=== PATIENT | female | born 1955 | race Caucasian/White ===

== ENCOUNTER 2018-07-22 17:32 | Inpatient (IN) ==
[2018-07-22 18:01] LABS: Basophils # 0.1 K/mm3 (0-0.2); Basophils % 0.2 % (0.1-2.0); Hematocrit 42.6 % (37.0-47.0); Hemoglobin 13.8 g/dL (12.2-16.2); Lymphocytes # 1.5 K/mm3 (0.7-4.5); Lymphocytes % 5.5 % (10-50); Mean Corpuscular HGB Conc 32.4 g/dL (31.8-35.4); Mean Corpuscular Hemoglobin 28.7 pg (27.0-31.2); Mean Corpuscular Volume 88.5 fl (81-99); Mean Platelet Volume 6.9 fl (7.4-10.4); Monocytes % 3.7 % (1.7-9.3); Neutrophils # 24.4 K/mm3 (1.8-7.8); Neutrophils % 90.6 % (37.0-80.0); Platelet Count 265 K/mm3 (142-424); Red Blood Count 4.82 M/mm3 (4.20-5.40); Red Cell Distribution Width 12.6 % (11.5-17.5); White Blood Count 26.9 K/mm3 (4.8-10.8)
[2018-07-22 18:13] LABS: Acetone, Serum (Rapid) None Detected (None Detect)
[2018-07-22 18:17] LABS: Lymphocytes % 2 % (10-50); Monocytes % 4 % (2-9); Neutrophils % 86 % (42-76); RBC Morphology Normal; Total Cells Counted 100
[2018-07-22 18:39] LABS: Alanine Aminotransferase 52 U/L (12-78); Albumin Level 2.7 gm/dL (3.4-5.0); Albumin/Globulin Ratio 0.6 (1.1-1.8); Alkaline Phosphatase 118 U/L (46-116); Amylase 16 U/L (25-115); Anion Gap 14.5 mEq/L (5-15); Aspartate Amino Transferase 41 U/L (15-37); Bilirubin,Total 0.5 mg/dL (0.2-1.0); Blood Urea Nitrogen 15 mg/dL (7-18); Calcium 8.4 mg/dL (8.5-10.1); Carbon Dioxide 25 mmol/L (21.0-32.0); Chloride 93 mmol/L (98-107); Globulin 4.8 gm/dl (1.3-3.2); Glucose,Random 499 mg/dL (70-110); Lipase 68 u/L (73-393); Potassium 3.5 mmoL/L (3.5-5.1); Sodium 129 mmol/L (136-145); Total Protein,Serum 7.5 gm/dL (6.4-8.2)
[2018-07-22 18:40] LABS: Glucose 499 mg/dL (74-106)
--- NOTE | 2018-07-22 18:53 | Emergency Department Note ---
ED Disposition Clinical Impression: Acute non-ST elevation myocardial infarction (NSTEMI), Left shift, Left lower lobe pulmonary infiltrate, Hyponatremia, Hypochloremia, Hyperglycemia, Hypocalcemia, Elevated alkaline phosphatase level, Dyspnea on exertion Leukocytosis Qualifiers: Leukocytosis type: unspecified Qualified Code(s): D72.829 - Elevated white blood cell count, unspecified Fatigue Qualifiers: Fatigue type: unspecified Qualified Code(s): R53.83 - Other fatigue Dyspnea Qualifiers: Dyspnea type: shortness of breath Qualified Code(s): R06.02 - Shortness of breath; R06.00 - Dyspnea, unspecified; R06.01 - Orthopnea Disposition: Admitted As Inpatient Condition on Discharge: Serious (Stable) Referrals: Carole Carlos APRN [Primary Care Provider] - Time of Disposition: 19:28 - Critical Care Critical Care Time: No Attestation: On 07/22/18, the high probability of a clinically significant, sudden or life threatening deterioration of the following system(s) required my full and direct attention, intervention and personal management. The time I documented below is in addition to time spent performing reported procedures but includes the following listed in this critical care notation. Medical Decision Making - Medical Records Medical records reviewed: Yes: I reviewed the patient's medical records. - Juaquin Inquiry Pt receiving controlled substance: No Juaquin was queried for this patient: No Vital Signs: 07/22/18 17:32 Temperature 98.3 F Temperature Source Oral Pulse Rate [Left Radial] 77 Respiratory Rate 20 Blood Pressure [Left Arm] 115/63 Blood Pressure Mean [Left Arm] 80 02 Sat by Pulse Oximetry 95 Oxygen Delivery Method Room Air - Lab Data Lab results reviewed: Yes: I reviewed the patient's lab results. Lab Results 07/22/18 17:45: WBC 26.9 H*, RBC 4.82, Hgb 13.8, Hct 42.6, MCV 88.5, MCH 28.7, MCHC 32.4, RDW 12.6, Plt Count 265, MPV 6.9 L, Neut % (Auto) 90.6 H, Lymph % (Auto) 5.5 L, Morgan % (Auto) 3.7, Eos % (Auto) 0.0 L, Baso % (Auto) 0.2, Neut # (Auto) 24.4 H, Lymph # (Auto) 1.5, Morgan # (Auto) 1.0, Eos # (Auto) 0.0, Baso # (Auto) 0.1, Total Counted 100, Neutrophils % (Manual) 86 H, Band Neutrophils % 4.0, Lymphocytes % (Manual) 2 L, Atypical Lymphs % 4.0, Monocytes % (Manual) 4, Platelet Estimate Normal, RBC Morphology Normal 07/22/18 17:45: Sodium 129 L, Potassium 3.5, Chloride 93 L, Carbon Dioxide 25, Anion Gap 14.5, BUN 15, Creatinine 0.88, Estimated Creat Clear 79, Estimated GFR 65, Est GFR ( Amer) 79, Glucose 499 H*, Random Glucose 499 H, Calcium 8.4 L, Total Bilirubin 0.5, AST 41 H, ALT 52, Alkaline Phosphatase 118 H, Troponin I 2.78 H, Total Protein 7.5, Albumin 2.7 L, Globulin 4.8 H, Albumin/Globulin Ratio 0.6 L, Amylase 16 L, Lipase 68 L, Acetone Level None detected Result diagrams: 07/22/18 17:45 07/22/18 17:45 Orders (Tests/Meds): ED MEDICATIONS Generic Name Dose Route Start Last Admin Trade Name Freq PRN Reason Stop Dose Admin Sodium Chloride 1,000 mls @ 999 mls/hr 07/22/18 18:00 07/22/18 17:48 Sod Chlor 0.9% 1000ml Bag IV 07/22/18 19:00 999 mls/hr .Q1H1M VLAD Administration Discontinued Medications Generic Name Dose Route Start Last Admin Trade Name Freq PRN Reason Stop Dose Admin Aspirin 324 mg 07/22/18 18:49 07/22/18 19:09 Aspirin 81mg Chewable Tablet PO 07/22/18 18:50 324 mg ONCE ONE Administration Insulin Human Regular 12 unit 07/22/18 19:07 07/22/18 19:09 Humulin R Insulin 100 Units/Ml 10ml Vial SQ 07/22/18 19:08 12 unit ONCE ONE Administration Metoprolol Tartrate 5 mg 07/22/18 18:50 Metoprolol Tartrate 5mg/5ml Vial IV 07/22/18 18:51 ONCE ONE Ondansetron HCl 4 mg 07/22/18 18:51 07/22/18 19:09 Zofran 4mg/2ml Vial IV 07/22/18 18:52 4 mg ONCE ONE Administration ORDERS Category Date Time Status XR chest portable Stat Exams 07/22/18 17:42 Taken Activated Partial Thrombo Time Stat Lab 07/22/18 18:51 Ordered B-Type Natriuretic Peptide Stat Lab 07/22/18 18:51 Ordered Prothrombin Time INR Stat Lab 07/22/18 18:51 Ordered Troponin I Q3H Lab 07/22/18 19:00 Ordered Troponin I Q3H Lab 07/22/18 22:00 Ordered Troponin I Q3H Lab 07/23/18 01:00 Ordered Urinalysis and Microscopic Stat Lab 07/22/18 17:42 Ordered Venous Blood Gas Stat RT 07/22/18 17:42 Ordered ECG Request by /Nse Stat Y 07/22/18 18:51 Ordered - Radiology Data #1 Image(s): Chest Image Reviewed: Yes I reviewed the patient's radiology image Preliminary PCXR reading by myself shows blunting of left costophrenic angle - suspect infiltrate. Medical Decision Narrative: 19:21 Pt evaluated. EKG, PCXR and lab results reviewed. Elevated troponin noted. Repeat EKG ordered and is essentially the same as the initial EKG. Regular insulin 12 units IVP ordered for hyperglycemia. 4 ASA 81 mg PO ordered. I subsequently discussed case with collection coordinator Dr. Rangel at ~19:10 and he recommended Plavix 300 mg PO, Lipitor 40 mg PO, Lovenox 1 mg/kg SC BID, and Metoprolol 25 mg PO BID. I have ordered these medicines. Case also discussed with Carole Carlos NP who has agreed to accept care and admission of this pt. Dr. Rangel will consult and participate. He intends to cath pt in the morning. I have discussed the results of work up, diagnosis and care plan with pt and . They understand and all questions answered. General Adult HPI - General Chief complaint: Hyper/Hypoglycemia Stated complaint: Hyperglycemia Time Seen by Provider: 07/22/18 18:30 Mode of Arrival: Ambulatory Source of Information: Patient, Spouse Limitations: No Limitations Description of Symptoms (Recalled from ER Triage Doc. by RN): Pt was having some weakness and her sugar at home was 500 - History of Present Illness HPI narrative: Pt is here in the ER from home with for evaluation c/o elevated glucose over 500 mg/dl at home [employer] [employer] in ER. Pt states that she has not felt well for 2 days. Pt has been fatigued since waking yesterday morning. She states that she has felt more fatigue and malaise today. She became nauseated and vomited once after breakfast this morning. She states she has felt SOB and has had DEJESUS today. She denies having chest pain. Pt has known diabetes mellitus but has only been using herbal treatments. She is not taking any routine medicines. Pt seen by Carole Carlos NP at home and instructed to come into the ER for evaluation. - Related Data Home Medications Medication Instructions Recorded Confirmed No Known Home Medications 07/22/18 07/22/18 Allergies Allergy/AdvReac Type Severity Reaction Status Date / Time No Known Allergies Allergy Verified 07/22/18 17:40 [facility] History - Hepatitis A Screen Drug use history?: No High risk sexual behaviors?: No History of sexually transmitted infection?: No Currently employed?: No Childcare worker?: No Do you have indoor plumbing?: Yes Do you have electricity?: Yes Attestation statement:: This patient participated in a screening for the Hepatitis A vaccine and was determined to be high risk for deangelo Hepatitis A. I agree with the recommendation that the patient receive the Hepatitis A vaccination unless otherwise refused. I have reviewed the patient's past medical history: Yes Medical History: Reports:: Diabetes Mellitus Type 2 Denies:: Diabetes Mellitus Type 1 - Social History Smoking Status: Unknown if ever smoked Alcohol Intake: never Housing: house Household Members: spouse - Psychiatric History Expresses thoughts of harming self/others: None Suicide Plan Description: No Plan ROS Obtained: Yes All systems reviewed & no additional complaints - Constitutional Constitutional: Reports system reviewed and no additional complaints, except as docu, Reports fatigue, Reports malaise - Eyes Eyes: Reports system reviewed and no additional complaints, except as docu - ENT Ears, Nose, Mouth, and Throat: Reports system reviewed and no additional complaints, except as docu - Cardiovascular Cardiovascular: Reports system reviewed and no additional complaints, except as docu - Respiratory Respiratory: Yes system reviewed and no additional complaints, except as docu, Yes dyspnea, Yes dyspnea on exertion - Gastrointestinal Gastrointestingal: Reports: system reviewed and no additional complaints, except as docu, nausea, vomiting - Genitourinary Female Genitourinary: Reports system reviewed and no additional complaints, except as docu - Musculoskeletal Musculoskeletal: Reports system reviewed and no additional complaints, except as docu - Integumentary/Breasts Skin/Breast: Reports system reviewed and no additional complaints, except as docu - Neurologic Neurologic: Reports system reviewed and no additional complaints, except as docu - Endocrine Endocrine: Reports system reviewed and no additional complaints, except as docu, Reports other (elevated glucose to 500 at home) - Hematologic/Lymphatic Henatologic/Lymphatic: Reports system reviewed and no additional complaints, except as docu - Allergic/Immunologic Allergic/Immunologic: Reports system reviewed and no additional complaints, except as docu Physical Exam - General General appearance: alert, in no apparent distress - Head Head exam: atraumatic, normocephalic, normal inspection - Eye Eye exam: Present: normal appearance, PERRL, EOMI - ENT ENT exam: Present: mucous membranes moist - Neck Neck exam: Present: trachea midline - Chest Chest inspection: Present: normal inspection, symmetric chest wall rise - Respiratory Respiratory exam: Absent: respiratory distress (Equally diminished BS bilaterally.), wheezes, stridor - Cardiovascular Cardiovascular exam: Present: regular rate - Abdominal Exam Abdominal exam: Present: soft, normal bowel sounds. Absent: distention, tenderness, guarding, rebound, rigidity, Pedersen's sign, tenderness at McBurney's Point - Extremities Exam Extremities exam: Present: normal inspection, normal capillary refill. Absent: pedal edema - Neurological Exam Neurological exam: Present: alert, oriented X3, CN II-XII intact - Psychiatric Psychiatric exam: Present: normal affect, normal mood - Skin Skin exam: Present: warm, dry, intact, normal color. Absent: rash
[2018-07-22 20:06] LABS: Prothrombin Time 10.3 seconds (9.4-11.8)
[2018-07-23 07:20] LABS: Basophils # 0.1 K/mm3 (0-0.2); Basophils % 0.3 % (0.1-2.0); Eosinophils # 0.2 K/mm3 (0.0-0.4); Eosinophils % 1.3 % (0.1-12.0); Hemoglobin 12.9 g/dL (12.2-16.2); Lymphocytes # 2.8 K/mm3 (0.7-4.5); Lymphocytes % 18.2 % (10-50); Mean Corpuscular HGB Conc 33.1 g/dL (31.8-35.4); Mean Corpuscular Hemoglobin 28.7 pg (27.0-31.2); Mean Corpuscular Volume 86.7 fl (81-99); Mean Platelet Volume 6.9 fl (7.4-10.4); Monocytes # 0.7 K/mm3 (0.1-1.0); Monocytes % 4.4 % (1.7-9.3); Neutrophils # 11.7 K/mm3 (1.8-7.8); Neutrophils % 75.9 % (37.0-80.0); Platelet Count 261 K/mm3 (142-424); Red Cell Distribution Width 12.6 % (11.5-17.5); White Blood Count 15.5 K/mm3 (4.8-10.8)
[2018-07-23 07:26] LABS: Anion Gap 11.2 mEq/L (5-15); Calcium 8.3 mg/dL (8.5-10.1); Potassium 3.2 mmoL/L (3.5-5.1)
--- NOTE | 2018-07-23 07:45 | Pharmacy Consult Notes ---
[facility] Pharmacy VTE Monitoring - Patient Demographics Admission date: 07/22/18 Report Date: 07/23/18 Time: 07:45 Allergies/Adverse Reactions: Patient Allergies No Known Allergies Allergy (Verified 07/22/18 17:40) Height: 1.55 m Weight: 88.11 kg Patient Problems: Current Active Problems Acute non-ST elevation myocardial infarction (NSTEMI) (Acute) Leukocytosis (Acute) Left shift (Acute) Left lower lobe pulmonary infiltrate (Acute) Hyponatremia (Acute) Hypochloremia (Acute) Hyperglycemia (Acute) Hypocalcemia (Acute) Elevated alkaline phosphatase level (Acute) Fatigue (Acute) Dyspnea (Acute) Dyspnea on exertion (Acute) - VTE Risk Labs: VTE Related Lab Results Hgb 12.9 g/dL (12.2-16.2) 07/23/18 07:00 Hct 39.0 % (37.0-47.0) 07/23/18 07:00 Plt Count 261 K/mm3 (142-424) 07/23/18 07:00 PT 10.3 seconds (9.4-11.8) 07/22/18 17:45 INR 1.00 (0.9-1.1) 07/22/18 17:45 APTT 28.0 seconds (23.6-34.0) 07/22/18 17:45 BUN 12 mg/dL (7-18) 07/23/18 07:00 Creatinine 0.53 mg/dL (0.55-1.02) L D 07/23/18 07:00 Estimated Creat Clear 81 mL/min (50-200) 07/23/18 07:00 Was VTE Risk Assessment Performed: Yes VTE Score: 3 VTE Risk Level: Low Risk - Prophylaxis VTE Prophylaxis Ordered?: Yes Types of VTE Prophylaxis: Pharmacological Pharmacologic Type: Enoxaparin - VTE Diagnosis Confirmed Treatment or plan recommended: Continue Current Treatment
--- NOTE | 2018-07-23 07:49 | Consult Report ---
History of Present Illness Consult date: 07/23/18 Requesting physician: Bob Self Consult reason: chest pain Chief complaint: chest pain Additional Medical History:: 1. Diabetes mellitus, treated with herbal therapy for greater than 2 years 2. History of hypertension, untreated History of present illness: 62-year-old [facility] white female with history of hypertension and diabetes, treated with organic, herbal therapy, was admitted through the ER for non-ST elevation SC. Patient relates 1-2-day history of increasing fatigue and unsteadiness. She denies significant chest pain. She has had a slight cough that is not particularly productive. ER workup revealed elevated white count along with elevated troponins and an abnormal chest x-ray with suggestion of left side infiltrate. EKG shows sinus rhythm, incomplete right bundle branch block and inferior/lateral T wave abnormalities suggestive of ischemia. Patient was started on anticoagulation therapy with Lovenox, antiplatelet therapy with Plavix as well as aspirin and started on metoprolol. This a.m. she states she feels much better. Cardiology consulted for evaluation and treatment. [facility] History Medical History: Reports:: Diabetes Mellitus Type 2 Denies:: Diabetes Mellitus Type 1 - *Social History Smoking Status: Unknown if ever smoked Alcohol Intake: never Occupational Status: other Housing: house Household Members: spouse, family - Psychiatric History Expresses thoughts of harming self/others: None Suicide Plan Description: No Plan *Family Hx:: No significant family history Meds Home Medications Medication Instructions Recorded Confirmed Type No Known Home Medications 07/22/18 07/22/18 History Allergies Allergy/AdvReac Type Severity Reaction Status Date / Time No Known Allergies Allergy Verified 07/22/18 17:40 Review of Systems - *Cardiovascular Reports shortness of breath with activity, Denies chest pain - *Respiratory Reports cough, Reports shortness of breath with activity - *Gastrointestinal Denies abdominal pain - *Genitourinary Denies blood in urine - *Musculoskeletal Reports back pain - *Neurologic Reports unsteadiness Exam Vital signs and Labs for Last 24 Hours: Temp Pulse Resp BP Pulse Ox 97.6 F 60 18 115/51 L 97 07/23/18 03:49 07/23/18 04:00 07/23/18 03:49 07/23/18 03:49 07/23/18 03:49 Laboratory Results - last 24 hr 07/22/18 17:45: WBC 26.9 H*, RBC 4.82, Hgb 13.8, Hct 42.6, MCV 88.5, MCH 28.7, MCHC 32.4, RDW 12.6, Plt Count 265, MPV 6.9 L, Neut % (Auto) 90.6 H, Lymph % (Auto) 5.5 L, Liberty % (Auto) 3.7, Eos % (Auto) 0.0 L, Baso % (Auto) 0.2, Neut # (Auto) 24.4 H, Lymph # (Auto) 1.5, Liberty # (Auto) 1.0, Eos # (Auto) 0.0, Baso # (Auto) 0.1, Total Counted 100, Neutrophils % (Manual) 86 H, Band Neutrophils % 4.0, Lymphocytes % (Manual) 2 L, Atypical Lymphs % 4.0, Monocytes % (Manual) 4, Platelet Estimate Normal, RBC Morphology Normal 07/22/18 17:45: Sodium 129 L, Potassium 3.5, Chloride 93 L, Carbon Dioxide 25, Anion Gap 14.5, BUN 15, Creatinine 0.88, Estimated Creat Clear 79, Estimated GFR 65, Est GFR ( Amer) 79, Glucose 499 H*, Random Glucose 499 H, Calcium 8.4 L, Total Bilirubin 0.5, AST 41 H, ALT 52, Alkaline Phosphatase 118 H, Troponin I 2.78 H, Total Protein 7.5, Albumin 2.7 L, Globulin 4.8 H, Albumin/Globulin Ratio 0.6 L, Amylase 16 L, Lipase 68 L, Acetone Level None detected 07/22/18 17:45: PT 10.3, INR 1.00, APTT 28.0 07/22/18 17:45: B-Natriuretic Peptide 196 H 07/22/18 19:30: Troponin I 2.12 H 07/22/18 19:35: Influenza Type A Ag Negative, Influenza Type B Ag Negative 07/22/18 22:08: Troponin I 2.78 H 07/22/18 23:08: POC Glucose 391 H* 07/23/18 07:00: WBC 15.5 H D, RBC 4.50, Hgb 12.9, Hct 39.0, MCV 86.7, MCH 28.7, MCHC 33.1, RDW 12.6, Plt Count 261, MPV 6.9 L, Neut % (Auto) 75.9, Lymph % (Auto) 18.2, Liberty % (Auto) 4.4, Eos % (Auto) 1.3, Baso % (Auto) 0.3, Neut # (Auto) 11.7 H, Lymph # (Auto) 2.8, Liberty # (Auto) 0.7, Eos # (Auto) 0.2, Baso # (Auto) 0.1 07/23/18 07:00: Sodium 137, Potassium 3.2 L, Chloride 102, Carbon Dioxide 27, Anion Gap 11.2, BUN 12, Creatinine 0.53 L D, Estimated Creat Clear 81, Estimated GFR 117, Est GFR ( Amer) 141 D, Glucose 205 H D, Calcium 8.3 L I & O for Last 24 hours: Intake & Output 07/20/18 07/21/18 07/22/18 07/23/18 11:59 11:59 11:59 11:59 Intake Total 1516 / 1516 Balance 1516 / 1516 Weight 194 lb 4 oz - *Routine Neck Exam Present: supple. Absent: JVD, carotid bruit - *Routine Respiratory Exam Present: decreased breath sounds. Absent: accessory muscle use, rales, rhonchi, wheezes Comments: Diminished air movement in left base. - *Routine Cardiovascular Exam Present: RRR. Absent: murmur, gallop, rubs - *Routine Abdominal Exam Present: soft. Absent: tenderness, distended, guarding - *Routine Extremities Exam Absent: edema, calf tenderness - *Routine Neurological Exam Present: alert, oriented X3, moving all extremities Assessment and Plan (1) Acute non-ST elevation myocardial infarction (NSTEMI) Current visit: Yes Status: Acute Category: Medical Code(s): I21.4 - Non-ST elevation (NSTEMI) myocardial infarction (2) Diabetes mellitus type 2 in obese Current visit: Yes Status: Acute Category: Medical Code(s): E11.69 - Type 2 diabetes mellitus with other specified complication; E66.9 - Obesity, unspecified (3) Dyspnea on exertion Current visit: Yes Status: Acute Category: Medical Code(s): R06.09 - Other forms of dyspnea (4) Fatigue Current visit: Yes Status: Acute Qualifiers: Fatigue type: unspecified Qualified Code(s): R53.83 - Other fatigue Category: Medical Code(s): R53.83 - Other fatigue (5) Left lower lobe pulmonary infiltrate Current visit: Yes Status: Acute Category: Medical Code(s): R91.8 - Other nonspecific abnormal finding of lung field (6) Leukocytosis Current visit: Yes Status: Acute Qualifiers: Leukocytosis type: unspecified Qualified Code(s): D72.829 - Elevated white blood cell count, unspecified Category: Medical Code(s): D72.829 - Elevated white blood cell count, unspecified - Assessment and plan all Dx Assessment and Plan for all problems:: 1. Discussed risks, benefits and procedure of left heart catheterization with the patient and her . They both agree to proceed with the procedure this a.m. Discussion regarding long-term use of aspirin and antiplatelet therapy along with possible other medications undertaken and they agreed to take medications if needed. 2. We will obtain an echocardiogram to evaluate left ventricular size and function as well as valve status. 3. Further recommendations to follow pending above
--- NOTE | 2018-07-23 09:27 | History & Physical Report ---
*Admission Date: 07/22/18 *Chief complaint: soa *History of present illness: 62-year-old [facility] white female with history of hypertension and diabetes, treated with organic, herbal therapy, was admitted through the ER for non-ST elevation RI. Patient relates 1-2-day history of increasing fatigue and unsteadiness. She denies significant chest pain. She has had a slight cough that is not particularly productive. ER workup revealed elevated white count along with elevated troponins and an abnormal chest x-ray with suggestion of left side infiltrate. EKG shows sinus rhythm, incomplete right bundle branch block and inferior/lateral T wave abnormalities suggestive of ischemia. Patient was started on anticoagulation therapy with Lovenox, antiplatelet therapy with Plavix as well as aspirin and started on metoprolol. This a.m. she states she feels much better. Cardiology consulted for evaluation and treatment. [facility] History I have reviewed the patient's past medical history: Yes Medical History: Reports:: Diabetes Mellitus Type 2 Denies:: Diabetes Mellitus Type 1 - *Social History Smoking Status: Unknown if ever smoked Alcohol Intake: never Occupational Status: other Housing: house Household Members: spouse, family - Psychiatric History Expresses thoughts of harming self/others: None Suicide Plan Description: No Plan *Family Hx:: No significant family history Review of Systems - Review of Systems Review of systems:: pertinent systems reviewed and negative unless documented below - Constitutional Reports weakness - Eyes Denies change in vision - ENT Denies change in voice - *Cardiovascular Reports shortness of breath, Reports shortness of breath with activity - *Respiratory Reports cough, Reports shortness of breath, Reports shortness of breath with activity - *Gastrointestinal Reports nausea, Reports vomiting - *Genitourinary Denies abnormal periods - *Musculoskeletal Reports abnormal walking, Reports muscle weakness - Integumentary/Breasts Denies rash - *Neurologic Reports unsteadiness, Reports tremor(s) - Psychiatric Denies lack of enjoyment - Endocrine Denies flushing - Hematologic/Lymphatic Denies enlarged lymph nodes - Allergic/Immunologic Denies lip swelling Meds Home Medications Medication Instructions Recorded Confirmed Type No Known Home Medications 07/22/18 07/22/18 History Allergies Allergy/AdvReac Type Severity Reaction Status Date / Time No Known Allergies Allergy Verified 07/22/18 17:40 Exam Vital signs and Labs for Last 24 Hours: Temp Pulse Resp BP Pulse Ox 97.9 F 81 18 104/50 L 95 07/23/18 08:00 07/23/18 08:00 07/23/18 08:00 07/23/18 08:00 07/23/18 08:00 Laboratory Results - last 24 hr 07/22/18 17:45: WBC 26.9 H*, RBC 4.82, Hgb 13.8, Hct 42.6, MCV 88.5, MCH 28.7, MCHC 32.4, RDW 12.6, Plt Count 265, MPV 6.9 L, Neut % (Auto) 90.6 H, Lymph % (Auto) 5.5 L, [place] % (Auto) 3.7, Eos % (Auto) 0.0 L, Baso % (Auto) 0.2, Neut # (Auto) 24.4 H, Lymph # (Auto) 1.5, [place] # (Auto) 1.0, Eos # (Auto) 0.0, Baso # (Auto) 0.1, Total Counted 100, Neutrophils % (Manual) 86 H, Band Neutrophils % 4.0, Lymphocytes % (Manual) 2 L, Atypical Lymphs % 4.0, Monocytes % (Manual) 4, Platelet Estimate Normal, RBC Morphology Normal 07/22/18 17:45: Sodium 129 L, Potassium 3.5, Chloride 93 L, Carbon Dioxide 25, Anion Gap 14.5, BUN 15, Creatinine 0.88, Estimated Creat Clear 79, Estimated GFR 65, Est GFR ( Amer) 79, Glucose 499 H*, Random Glucose 499 H, Calcium 8.4 L, Total Bilirubin 0.5, AST 41 H, ALT 52, Alkaline Phosphatase 118 H, Troponin I 2.78 H, Total Protein 7.5, Albumin 2.7 L, Globulin 4.8 H, Albumin/Globulin Ratio 0.6 L, Amylase 16 L, Lipase 68 L, Acetone Level None detected 07/22/18 17:45: PT 10.3, INR 1.00, APTT 28.0 07/22/18 17:45: B-Natriuretic Peptide 196 H 07/22/18 19:30: Troponin I 2.12 H 07/22/18 19:35: Influenza Type A Ag Negative, Influenza Type B Ag Negative 07/22/18 22:08: Troponin I 2.78 H 07/22/18 23:08: POC Glucose 391 H* 07/23/18 06:41: POC Glucose 206 H 07/23/18 07:00: WBC 15.5 H D, RBC 4.50, Hgb 12.9, Hct 39.0, MCV 86.7, MCH 28.7, MCHC 33.1, RDW 12.6, Plt Count 261, MPV 6.9 L, Neut % (Auto) 75.9, Lymph % (Auto) 18.2, [place] % (Auto) 4.4, Eos % (Auto) 1.3, Baso % (Auto) 0.3, Neut # (Auto) 11.7 H, Lymph # (Auto) 2.8, [place] # (Auto) 0.7, Eos # (Auto) 0.2, Baso # (Auto) 0.1 07/23/18 07:00: Sodium 137, Potassium 3.2 L, Chloride 102, Carbon Dioxide 27, Anion Gap 11.2, BUN 12, Creatinine 0.53 L D, Estimated Creat Clear 81, Estimated GFR 117, Est GFR ( Amer) 141 D, Glucose 205 H D, Calcium 8.3 L I & O for Last 24 hours: Intake & Output 07/20/18 07/21/18 07/22/18 07/23/18 11:59 11:59 11:59 11:59 Intake Total 1516 / 1516 Balance 1516 / 1516 Weight 194 lb 4 oz - *Routine HEENT Exam Head: Present: normocephalic Eye: Present: PERRL ENT: Present: mucous membranes moist - *Routine Neck Exam Present: supple. Absent: lymphadenopathy - *Routine Respiratory Exam Present: CTA bilaterally - *Routine Cardiovascular Exam Present: RRR - *Routine Abdominal Exam Present: soft, normoactive bowel sounds. Absent: tenderness - *Routine Extremities Exam Absent: cyanosis, clubbing, edema - *Routine Skin Exam Present: warm. Absent: rash - *Routine Neurological Exam Present: alert, oriented X3 Assessment and Plan (1) Acute non-ST elevation myocardial infarction (NSTEMI) Current visit: Yes Status: Acute Category: Medical Code(s): I21.4 - Non-ST elevation (NSTEMI) myocardial infarction (2) Diabetes mellitus type 2 in obese Current visit: Yes Status: Acute Category: Medical Code(s): E11.69 - Type 2 diabetes mellitus with other specified complication; E66.9 - Obesity, unspecified (3) Dyspnea on exertion Current visit: Yes Status: Acute Category: Medical Code(s): R06.09 - Other forms of dyspnea (4) Fatigue Current visit: Yes Status: Acute Qualifiers: Fatigue type: unspecified Qualified Code(s): R53.83 - Other fatigue Category: Medical Code(s): R53.83 - Other fatigue (5) Left lower lobe pulmonary infiltrate Current visit: Yes Status: Acute Category: Medical Code(s): R91.8 - Other nonspecific abnormal finding of lung field (6) Leukocytosis Current visit: Yes Status: Acute Qualifiers: Leukocytosis type: unspecified Qualified Code(s): D72.829 - Elevated white blood cell count, unspecified Category: Medical Code(s): D72.829 - Elevated white blood cell count, unspecified - Assessment and plan all Dx Assessment and Plan for all problems:: Rounded with Dr. Self all orders per [facility] Heart cath today Echo Check urine related to decreased white count after 1 dose of antibiotics
[2018-07-23 09:38] LABS: Microscopic, Urine URINE MICROSCOPIC (MICROSCOPIC)
[2018-07-23 09:46] LABS: Appearance,Urine SL CLOUDY (Clear); Bilirubin,Urine Negative (Negative); Blood, Urine Negative (Negative); Color,Urine YELLOW (Yellow); Glucose,Urine (UA) 3+ (Negative); Ketones,Urine TRACE (Negative); Leukocyte Esterase,Urine 2+ (Negative); PH,Urine 5.5 (5.0-8.5); Protein,Urine Negative (Negative); Specific Gravity, Urine 1.015 (1.005-1.030); Urobilinogen,Urine 0.2 EU/dl (0.2)
[2018-07-23 09:58] LABS: Bacteria,Urine 1+ /lpf; RBC,Urine Occasional #/hpf (0-3)
[2018-07-23 11:17] LABS: Lymphocytes % 15 % (10-50); Monocytes % 5 % (2-9); Neutrophils % 78 % (42-76); Total Cells Counted 100
[2018-07-23 11:19] LABS: RBC Morphology Normal
[2018-07-24 06:11] LABS: Basophils # 0.1 K/mm3 (0-0.2); Basophils % 0.5 % (0.1-2.0); Eosinophils # 0.2 K/mm3 (0.0-0.4); Eosinophils % 1.8 % (0.1-12.0); Hemoglobin 12.6 g/dL (12.2-16.2); Lymphocytes # 3.6 K/mm3 (0.7-4.5); Lymphocytes % 35.7 % (10-50); Mean Corpuscular HGB Conc 32.3 g/dL (31.8-35.4); Mean Corpuscular Hemoglobin 28.5 pg (27.0-31.2); Mean Corpuscular Volume 88.2 fl (81-99); Mean Platelet Volume 6.9 fl (7.4-10.4); Monocytes # 0.6 K/mm3 (0.1-1.0); Monocytes % 5.6 % (1.7-9.3); Neutrophils # 5.7 K/mm3 (1.8-7.8); Neutrophils % 56.3 % (37.0-80.0); Platelet Count 292 K/mm3 (142-424); Red Blood Count 4.42 M/mm3 (4.20-5.40); Red Cell Distribution Width 12.6 % (11.5-17.5); White Blood Count 10.1 K/mm3 (4.8-10.8)
[2018-07-24 06:24] LABS: Albumin Level 2.3 gm/dL (3.4-5.0); Albumin/Globulin Ratio 0.5 (1.1-1.8); Anion Gap 12.8 mEq/L (5-15); Bilirubin,Total 0.2 mg/dL (0.2-1.0); Calcium 8.3 mg/dL (8.5-10.1); Globulin 4.3 gm/dl (1.3-3.2); Potassium 3.8 mmoL/L (3.5-5.1); Total Protein,Serum 6.6 gm/dL (6.4-8.2)
--- NOTE | 2018-07-24 09:37 | Progress Note ---
Addendum entered and electronically signed by Marta Hill APRN 07/24/18 15:56: Left heart cath revealed: 1. Successful angioplasty of the proximal LAD extending into a large diagonal artery reducing greater than 90% stenosis to 20% with POBA 2. Persistent severe three-vessel coronary artery disease as described on yesterday's report PLAN: 1. After experiencing patient's brittle calcified arteries I would recommend patient be evaluated by CT surgery and only consider intervention if CT surgery is considered to high risk. 2. CT surgery is not going to be performed I would recommend patient have this intervention done at the [facility] under the direction of Dr. Bob Carrillo Discussed in length the risk and benefits of pt having cardiac surgery. Family and pt would like to discuss their options in private. Dr. Rangel will discuss with pt and family of their decision. Plavix was stopped due to possible surgery. Original Note: Subjective Date: 07/24/18 Time: 09:00 Principal diagnosis: Non-STEMI Interval history: 62-year-old [place] lady admitted to [facility] on 07/22/2018 with non-STEMI. Patient underwent Left heart catheterization on 07/23/2018. Patient is noncompliant with medical regimen. Family was asked to discuss patient returning to [facility] for stenting to the proximal LAD, proximal circumflex and descending artery. Patient doing well. Patient denies chest pain, tightness or pressure. Patient stated she had a restful night. Denies shortness of breath. Denies palpitations or dizziness. Cath site of the right wrist noted with dry dressing intact. Patient states the site is sore. There is slight swelling around the area. No swelling noted of the lower extremities. Vital signs are stable. WBCs 10.1, creatinine 0.52 and BUN 12. hospital monitor reveals sinus rhythm with a prolonged QT with no ectopy noted. Family did discuss the possibility of patient returning to the [facility] for stenting of the arteries. Discussed risks and benefits of left heart cath to patient and family. Family and patient agreeable to return to the [facility] for stenting of the proximal LAD, proximal circumflex and descending artery. Dr. Self also agreeable to treatment. Pending results of echocardiogram and left heart catheterization, may need to add additional medication to her medication regimen. Exam Vital signs and Labs for Last 24 Hours: Temp Pulse Resp BP Pulse Ox 98.5 F 72 18 175/83 H 95 07/24/18 08:00 07/24/18 08:00 07/24/18 08:00 07/24/18 08:00 07/24/18 08:00 Laboratory Results - last 24 hr 07/23/18 07:00: Total Counted 100, Neutrophils % (Manual) 78 H, Lymphocytes % (Manual) 15, Atypical Lymphs % 2.0, Monocytes % (Manual) 5, Platelet Estimate Normal, RBC Morphology Normal 07/23/18 09:35: Urine Color Yellow, Urine Appearance Sl cloudy, Urine pH 5.5, Ur Specific [place] 1.015, Urine Protein Negative, Urine Glucose (UA) 3+, Urine Ketones Trace, Urine Blood Negative, Urine Nitrate Negative, Urine Bilirubin Negative, Urine Urobilinogen 0.2, Ur Leukocyte Esterase 2+ A, Urine RBC Occasional, Urine WBC 10-20, Ur Squamous Epith Cells 10-20, Urine Bacteria 1+ 07/23/18 11:44: POC Glucose 183 H 07/23/18 16:48: POC Glucose 264 H 07/23/18 20:02: POC Glucose 337 H* 07/24/18 05:53: WBC 10.1 D, RBC 4.42, Hgb 12.6, Hct 39.0, MCV 88.2, MCH 28.5, MCHC 32.3, RDW 12.6, Plt Count 292, MPV 6.9 L, Neut % (Auto) 56.3, Lymph % (Auto) 35.7, [place] % (Auto) 5.6, Eos % (Auto) 1.8, Baso % (Auto) 0.5, Neut # (Auto) 5.7, Lymph # (Auto) 3.6, [place] # (Auto) 0.6, Eos # (Auto) 0.2, Baso # (Auto) 0.1 07/24/18 05:53: Sodium 138, Potassium 3.8, Chloride 104, Carbon Dioxide 25, Anion Gap 12.8, BUN 12, Creatinine 0.52 L, Estimated Creat Clear 81, Estimated GFR 119, Est GFR ( Amer) 145, Glucose 248 H D, Calcium 8.3 L, Total Bilirubin 0.2, AST 38 H, ALT 61, Alkaline Phosphatase 89, Total Protein 6.6, Albumin 2.3 L, Globulin 4.3 H, Albumin/Globulin Ratio 0.5 L I & O for Last 24 hours: Intake & Output 07/21/18 07/22/18 07/23/18 07/24/18 23:59 23:59 23:59 23:59 Intake Total 1250 / 1250 986 / 986 1436 / 1436 Balance 1250 / 1250 986 / 986 1436 / 1436 Weight 194 lb 2 oz 194 lb 4 oz - Constitutional no acute distress, obese, cooperative - *Routine HEENT Exam Head: Present: normocephalic - *Routine Neck Exam Present: supple, full ROM, normal carotid upstroke. Absent: JVD, carotid bruit - Routine Chest/Breast/Axilla Exam Chest wall: Present: tenderness. Absent: mass, pacemaker - *Routine Respiratory Exam Present: accessory muscle use, CTA bilaterally. Absent: rales, respiratory distress, rhonchi, wheezes, crackles - *Routine Cardiovascular Exam Present: RRR, Normal S2. Absent: murmur, gallop, rubs, irregular rhythm, irregularly irregular - *Routine Abdominal Exam Present: soft, normoactive bowel sounds. Absent: tenderness, distended, firm - *Routine Extremities Exam Present: full ROM, pulses intact, normal capillary refill. Absent: cyanosis, clubbing, edema - *Routine Skin Exam Present: intact, dry, warm. Absent: cyanosis, erythema Comments: R wrist noted with dry and intact dressing. - *Routine Neurological Exam Present: alert, oriented X3, CN II-XII intact, moving all extremities, normal speech - Routine Psychiatric Exam Present: normal affect Progress Note: A&P (1) Acute non-ST elevation myocardial infarction (NSTEMI) Status: Acute Current Visit: Yes (2) Diabetes mellitus type 2 in obese Status: Acute Current Visit: Yes (3) Dyspnea on exertion Status: Acute Current Visit: Yes (4) Fatigue Status: Acute Current Visit: Yes (5) Left lower lobe pulmonary infiltrate Status: Acute Current Visit: Yes (6) Leukocytosis Status: Acute Current Visit: Yes Assessment and Plan for All Diagnoses:: Plan: 1. Schedule left heart catheterization today to stent proximal LAD, proximal circumflex and descending artery. 2. Obtain echocardiogram to assess LV function and valve status. 3. Pending on left heart catheterization results, may need to add additional medication to medication regimen.
--- NOTE | 2018-07-24 12:23 | Progress Note ---
Internal Medicine - PN: Subj Interval history: doing ok and will have cath today Exam Vital signs and Labs for Last 24 Hours: Temp Pulse Resp BP Pulse Ox 98.6 F 65 18 137/70 96 07/24/18 11:58 07/24/18 11:58 07/24/18 11:58 07/24/18 11:58 07/24/18 11:58 Laboratory Results - last 24 hr 07/23/18 16:48: POC Glucose 264 H 07/23/18 20:02: POC Glucose 337 H* 07/24/18 05:48: POC Glucose 217 H 07/24/18 05:53: WBC 10.1 D, RBC 4.42, Hgb 12.6, Hct 39.0, MCV 88.2, MCH 28.5, MCHC 32.3, RDW 12.6, Plt Count 292, MPV 6.9 L, Neut % (Auto) 56.3, Lymph % (Auto) 35.7, [place] % (Auto) 5.6, Eos % (Auto) 1.8, Baso % (Auto) 0.5, Neut # (Auto) 5.7, Lymph # (Auto) 3.6, [place] # (Auto) 0.6, Eos # (Auto) 0.2, Baso # (Auto) 0.1 07/24/18 05:53: Sodium 138, Potassium 3.8, Chloride 104, Carbon Dioxide 25, Anion Gap 12.8, BUN 12, Creatinine 0.52 L, Estimated Creat Clear 81, Estimated GFR 119, Est GFR ( Amer) 145, Glucose 248 H D, Calcium 8.3 L, Total Bilirubin 0.2, AST 38 H, ALT 61, Alkaline Phosphatase 89, Total Protein 6.6, Albumin 2.3 L, Globulin 4.3 H, Albumin/Globulin Ratio 0.5 L 07/24/18 12:04: POC Glucose 236 H I & O for Last 24 hours: Intake & Output 07/22/18 07/23/18 07/24/18 07/25/18 11:59 11:59 11:59 11:59 Intake Total 1516 / 1516 2156 / 2156 Balance 1516 / 1516 2156 / 2156 Weight 194 lb 4 oz Microbiology Reports for the Last 24 Hours: Microbiology 07/23/18 09:35 Urine,Clean Catch Urine Culture - Preliminary NO GROWTH AFTER 24 HOURS - Constitutional no acute distress, obese - *Routine HEENT Exam Head: Present: normocephalic Eye: Present: EOMI, PERRL ENT: Present: mucous membranes dry - *Routine Neck Exam Present: supple - *Routine Respiratory Exam Present: CTA bilaterally - *Routine Cardiovascular Exam Present: RRR, murmur - *Routine Abdominal Exam Present: soft - *Routine Extremities Exam Absent: calf tenderness - *Routine Skin Exam Present: intact - *Routine Neurological Exam Present: alert - Routine Psychiatric Exam Present: unable to assess Assessment and Plan (1) Acute non-ST elevation myocardial infarction (NSTEMI) Current visit: Yes Status: Acute Category: Medical Code(s): I21.4 - Non-ST elevation (NSTEMI) myocardial infarction (2) Diabetes mellitus type 2 in obese Current visit: Yes Status: Acute Category: Medical Code(s): E11.69 - Type 2 diabetes mellitus with other specified complication; E66.9 - Obesity, unspecified (3) Dyspnea on exertion Current visit: Yes Status: Acute Category: Medical Code(s): R06.09 - Other forms of dyspnea (4) Fatigue Current visit: Yes Status: Acute Qualifiers: Fatigue type: unspecified Qualified Code(s): R53.83 - Other fatigue Category: Medical Code(s): R53.83 - Other fatigue (5) Left lower lobe pulmonary infiltrate Current visit: Yes Status: Acute Category: Medical Code(s): R91.8 - Other nonspecific abnormal finding of lung field (6) Leukocytosis Current visit: Yes Status: Acute Qualifiers: Leukocytosis type: unspecified Qualified Code(s): D72.829 - Elevated white blood cell count, unspecified Category: Medical Code(s): D72.829 - Elevated white blood cell count, unspecified
[2018-07-25 08:40] LABS: Anion Gap 12.6 mEq/L (5-15); Calcium 8.7 mg/dL (8.5-10.1); Potassium 3.6 mmoL/L (3.5-5.1)
--- NOTE | 2018-07-25 09:12 | Progress Note ---
Internal Medicine - PN: Subj *Date: 07/25/18 *Time: 09:11 Exam Vital signs and Labs for Last 24 Hours: Temp Pulse Resp BP Pulse Ox 98.1 F 64 17 167/70 H 97 07/25/18 04:00 07/25/18 06:00 07/25/18 04:00 07/25/18 06:00 07/25/18 06:00 Laboratory Results - last 24 hr 07/24/18 05:48: POC Glucose 217 H 07/24/18 12:04: POC Glucose 236 H 07/24/18 13:22: Activated Clotting Time 333 H* 07/24/18 16:50: POC Glucose 194 H 07/24/18 19:58: POC Glucose 207 H 07/25/18 05:18: POC Glucose 223 H 07/25/18 08:20: Sodium 137, Potassium 3.6, Chloride 102, Carbon Dioxide 26, Anion Gap 12.6, BUN 9, Creatinine 0.67 D, Estimated Creat Clear 79, Estimated GFR 89, Est GFR ( Amer) 108 D, Glucose 288 H, Calcium 8.7 I & O for Last 24 hours: Intake & Output 07/22/18 07/23/18 07/24/18 07/25/18 11:59 11:59 11:59 11:59 Intake Total 1516 / 1516 2156 / 2156 1329 / 1329 Output Total 1600 / 1600 Balance 1516 / 1516 2156 / 2156 -271 / -271 Weight 194 lb 4 oz 190 lb 3 oz Microbiology Reports for the Last 24 Hours: Microbiology 07/23/18 09:35 Urine,Clean Catch Urine Culture - Final Multiple organisms, suggests contamination. - *Routine HEENT Exam Head: Present: normocephalic Eye: Present: PERRL ENT: Present: mucous membranes moist - *Routine Neck Exam Present: supple. Absent: lymphadenopathy - *Routine Respiratory Exam Present: CTA bilaterally - *Routine Cardiovascular Exam Present: RRR - *Routine Abdominal Exam Present: soft, normoactive bowel sounds. Absent: tenderness - *Routine Extremities Exam Absent: cyanosis, clubbing, edema - *Routine Skin Exam Present: warm. Absent: rash - *Routine Neurological Exam Present: alert, oriented X3 - Routine Psychiatric Exam Present: normal affect Assessment and Plan (1) Acute non-ST elevation myocardial infarction (NSTEMI) Current visit: Yes Status: Acute Category: Medical Code(s): I21.4 - Non-ST elevation (NSTEMI) myocardial infarction (2) Diabetes mellitus type 2 in obese Current visit: Yes Status: Acute Category: Medical Code(s): E11.69 - Type 2 diabetes mellitus with other specified complication; E66.9 - Obesity, unspecified (3) Dyspnea on exertion Current visit: Yes Status: Acute Category: Medical Code(s): R06.09 - Other forms of dyspnea (4) Fatigue Current visit: Yes Status: Acute Qualifiers: Fatigue type: unspecified Qualified Code(s): R53.83 - Other fatigue Category: Medical Code(s): R53.83 - Other fatigue (5) Left lower lobe pulmonary infiltrate Current visit: Yes Status: Acute Category: Medical Code(s): R91.8 - Other nonspecific abnormal finding of lung field (6) Leukocytosis Current visit: Yes Status: Acute Qualifiers: Leukocytosis type: unspecified Qualified Code(s): D72.829 - Elevated white blood cell count, unspecified Category: Medical Code(s): D72.829 - Elevated white blood cell count, unspecified - Assessment and plan all Dx Assessment and Plan for all problems:: Rounded with Dr. Self all orders per [facility] Long discussion with patient regarding being transferred to for possible bypass surgery or consult with Dr. Carrillo at this time patient wants to think about having bypass surgery but may be willing to transfer for early consult. Will discuss later
--- NOTE | 2018-07-25 10:58 | Progress Note ---
Subjective Date: 07/25/18 Time: 09:30 Principal diagnosis: Non-STEMI Interval history: 62-year-old white female in bed in no acute distress. Multiple family and friends in the room. Cardiac catheterizations from the last 2 days have been sent to and we are awaiting evaluation and recommendation for further intervention. Exam Vital signs and Labs for Last 24 Hours: Temp Pulse Resp BP Pulse Ox 98.0 F 74 18 140/87 96 07/25/18 08:00 07/25/18 10:00 07/25/18 10:00 07/25/18 10:00 07/25/18 10:00 Laboratory Results - last 24 hr 07/24/18 05:48: POC Glucose 217 H 07/24/18 12:04: POC Glucose 236 H 07/24/18 13:22: Activated Clotting Time 333 H* 07/24/18 16:50: POC Glucose 194 H 07/24/18 19:58: POC Glucose 207 H 07/25/18 05:18: POC Glucose 223 H 07/25/18 08:20: Sodium 137, Potassium 3.6, Chloride 102, Carbon Dioxide 26, Anion Gap 12.6, BUN 9, Creatinine 0.67 D, Estimated Creat Clear 79, Estimated GFR 89, Est GFR ( Amer) 108 D, Glucose 288 H, Calcium 8.7 I & O for Last 24 hours: Intake & Output 07/22/18 07/23/18 07/24/18 07/25/18 11:59 11:59 11:59 11:59 Intake Total 1516 / 1516 2156 / 2156 1689 / 1689 Output Total 1600 / 1600 Balance 1516 / 1516 2156 / 2156 89 / 89 Weight 194 lb 4 oz 190 lb 3 oz Microbiology Reports for the Last 24 Hours: Microbiology 07/23/18 09:35 Urine,Clean Catch Urine Culture - Final Multiple organisms, suggests contamination. - *Routine Respiratory Exam Present: CTA bilaterally. Absent: accessory muscle use, rales, rhonchi, wheezes - *Routine Cardiovascular Exam Present: RRR. Absent: murmur, gallop, rubs Progress Note: A&P (1) Acute non-ST elevation myocardial infarction (NSTEMI) Status: Acute (2) Diabetes mellitus type 2 in obese Status: Acute (3) Dyspnea on exertion Status: Acute (4) Fatigue Status: Acute (5) Left lower lobe pulmonary infiltrate Status: Acute (6) Leukocytosis Status: Acute Assessment and Plan for All Diagnoses:: As noted above, waiting for [facility] evaluation of cardiac cath films and recommendation for either coronary stenting versus coronary artery bypass grafting.
--- NOTE | 2018-07-25 16:23 | Cardiology Report ---
PROCEDURE: 2-D M-mode and color Doppler study INDICATIONS FOR THE TEST: Chest pain COPD Heart Murmur Tobacco Smoking Palpitations Fatigue+ Syncope Edema Hypertension+Diabetes Mellitus+ Rheumatic Fever SOB DEJESUS Obesity Hyperlipidemia Family History HD Additional History RBBB PATIENT INFORMATION HEIGHT: 61 WEIGHT: 194 GENDER: Female B/P: 104/50 2-D/M-MODE INTERPRETATION: 2-D MEASUREMENTS OBSERVED VALUES IN CMS Right Ventricular Dimension (RVDd) 2.9 Interventricular Septum (Thickness)(IVsd) 1.5 Left Ventricular Internal Dimensions(LVIDd) 4.7 Left Ventricular Posterior Wall (Thickness)(LVPWd) 1.4 Aortic Root 2.9 Aortic Cusp Separation 2.1 Left Atrial Dimensions (LAD) 3.7 2D 1. Left atrium is mildly enlarged, left ventricle is normal size, mild concentric left ventricular hypertrophy, visually estimated ejection fraction of 55% with no regional wall motion abnormality. 2. The right atrium and right ventricle are mildly enlarged with normal contractility. 3. The aortic valve is minimally thickened and fibrosed. 4. The mitral and tricuspid valve leaflets are minimally thickened. 5. The pulmonic valve is poorly visualized. 6. No significant pericardial effusion noted. DOPPLER INTERROGATION: Doppler interrogation of the aortic, mitral and tricuspid valvular presence of mild mitral and tricuspid regurgitation, tricuspid regurgitation jet velocity is inadequate for calculation of the right ventricular systolic pressure, grade 1 diastolic dysfunction seen with tissue Doppler evidence of raised left atrial pressure. CONCLUSION: 1. Mildly enlarged left atrium, normal left ventricular size, mild concentric left ventricular hypertrophy, visually estimated ejection fraction of 55% with no regional wall motion abnormality, grade 1 diastolic dysfunction seen with tissue Doppler evidence of raised left atrial pressure. 2. Mild mitral and tricuspid regurgitation. 3. No significant pericardial effusion noted.
[2018-07-26 06:20] LABS: Basophils # 0.1 K/mm3 (0-0.2); Basophils % 0.4 % (0.1-2.0); Eosinophils # 0.2 K/mm3 (0.0-0.4); Eosinophils % 1.3 % (0.1-12.0); Hematocrit 40.1 % (37.0-47.0); Hemoglobin 12.9 g/dL (12.2-16.2); Lymphocytes # 3.7 K/mm3 (0.7-4.5); Mean Corpuscular HGB Conc 32.2 g/dL (31.8-35.4); Mean Corpuscular Hemoglobin 28.3 pg (27.0-31.2); Mean Corpuscular Volume 87.8 fl (81-99); Mean Platelet Volume 6.9 fl (7.4-10.4); Monocytes # 0.6 K/mm3 (0.1-1.0); Monocytes % 4.7 % (1.7-9.3); Neutrophils # 8.7 K/mm3 (1.8-7.8); Neutrophils % 65.5 % (37.0-80.0); Platelet Count 344 K/mm3 (142-424); Red Blood Count 4.56 M/mm3 (4.20-5.40); Red Cell Distribution Width 12.7 % (11.5-17.5); White Blood Count 13.3 K/mm3 (4.8-10.8)
[2018-07-26 06:37] LABS: Anion Gap 11.6 mEq/L (5-15); Calcium 8.5 mg/dL (8.5-10.1); Potassium 3.6 mmoL/L (3.5-5.1)
--- NOTE | 2018-07-26 09:14 | Discharge Summary ---
General - General Admission date:: 07/22/18 Discharge date: 07/26/18 HPI HPI: 62-year-old [facility] white female with history of hypertension and diabetes, treated with organic, herbal therapy, was admitted through the ER for non-ST elevation IN. Patient relates 1-2-day history of increasing fatigue and unsteadiness. She denies significant chest pain. She has had a slight cough that is not particularly productive. ER workup revealed elevated white count along with elevated troponins and an abnormal chest x-ray with suggestion of left side infiltrate. EKG shows sinus rhythm, incomplete right bundle branch block and inferior/lateral T wave abnormalities suggestive of ischemia. Patient was started on anticoagulation therapy with Lovenox, antiplatelet therapy with Plavix as well as aspirin and started on metoprolol. This a.m. she states she feels much better. Cardiology consulted for evaluation and treatment. Hospital Course Hospital Course: pt did well in hospital and was seen by shelby- Diabetes mellitus, treated with herbal therapy for greater than 2 years 2. History of hypertension, untreated History of present illness: 62-year-old [facility] white female with history of hypertension and diabetes, treated with organic, herbal therapy, was admitted through the ER for non-ST elevation IN. Patient relates 1-2-day history of increasing fatigue and unsteadiness. She denies significant chest pain. She has had a slight cough that is not particularly productive. ER workup revealed elevated white count along with elevated troponins and an abnormal chest x-ray with suggestion of left side infiltrate. EKG shows sinus rhythm, incomplete right bundle branch block and inferior/lateral T wave abnormalities suggestive of ischemia. Patient was started on anticoagulation therapy with Lovenox, antiplatelet therapy with Plavix as well as aspirin and started on metoprolol. This a.m. she states she feels much better. Cardiology consulted for evaluation and treatment. cussed risks, benefits and procedure of left heart catheterization with the patient and her . They both agree to proceed with the procedure this a.m. Discussion regarding long-term use of aspirin and antiplatelet therapy along with possible other medications undertaken and they agreed to take medications if needed. 2. We will obtain an echocardiogram to evaluate left ventricular size and function as well as valve status. 3. Further recommendations to follow pending above pt had cath-IOGRAPHIC RESULTS: 1. The left main artery normal 2. The left anterior descending artery has proximal eccentric 20% stenosis followed by an additional proximal 90% stenosis followed by a 90% stenosis distal to the first diagonal artery. 3. The ramus intermedius is a moderate size vessel with a proximal 40-50% stenosis 4. The circumflex artery is nondominant with very proximal 40% stenoses followed by an additional 70% stenosis proximal to the first obtuse marginal artery. The second obtuse marginal artery is occluded at mid vessel as is the third distal obtuse marginal artery 5. The right coronary artery is a large dominant vessel with proximal 10-20% stenoses mid vessel 30-40% stenosis followed by an additional 40% stenosis. The posterior lateral ventricular branch is a large branch with 2030% diffuse stenoses while the large posterior descending artery has mid vessel long 80% stenoses at an area of 2.5 mm in diameter 6. The ELLIOTT ventriculogram reveals left ventricular dilatation with ejection fraction of 55-60% 7. The left ventricular end-diastolic pressure 15 mmHg IMPRESSION: 1. Coronary artery disease as described above 2. Left ventricular dilatation with preserved ejection fraction 3. Mildly elevated LVEDP PLAN: 1. I will discuss with the family and the patient the next course of action. I am hesitant to place stents because of patient's profound medicinal noncompliance 2. Surgery is an option but I don't believe this is most desirable. I'm not impressed with her distal targets and I do not like that the LAD is not a large vessel. The second and third obtuse marginal artery are occluded and not able to be bypassed. 3. Patient is a candidate for stenting of the proximal to mid LAD as well as the proximal circumflex and posterior descending artery. This will be discussed and pt had cath the next dayRESSION: 1. Successful angioplasty of the proximal LAD extending into a large diagonal artery reducing greater than 90% stenosis to 20% with POBA 2. Persistent severe three-vessel coronary artery disease as described on yesterday's report PLAN: 1. After experiencing patient's brittle calcified arteries I would recommend patient be evaluated by CT surgery and only consider intervention if CT surgery is considered to high risk. 2. CT surgery is not going to be performed I would recommend patient have this intervention done at the [facility] under the direction of Dr. Bob Carrillo pt and family decided to use medical management at this time and did not wish to go to at this time and was d/c on meds and will follow up in office Objective Vital signs: Temp Pulse Resp BP Pulse Ox 97.4 F L 73 22 125/60 98 07/26/18 08:00 07/26/18 08:00 07/26/18 08:00 07/26/18 08:00 07/26/18 08:00 no acute distress, obese - *Routine HEENT Exam Head: Present: normocephalic Eye: Present: EOMI, PERRL ENT: Present: mucous membranes dry - *Routine Neck Exam Present: supple. Absent: JVD - *Routine Respiratory Exam Present: CTA bilaterally - *Routine Cardiovascular Exam Present: RRR, murmur, S4 - *Routine Abdominal Exam Present: soft - *Routine Extremities Exam Absent: calf tenderness - *Routine Skin Exam Present: intact - *Routine Neurological Exam Present: alert, oriented X3, CN II-XII intact - Routine Psychiatric Exam Present: normal affect Results Labs on day of discharge: Labs from last 24 hours 07/26/18 07/26/18 07/26/18 05:30 05:30 05:29 WBC 13.3 H D RBC 4.56 Hgb 12.9 Hct 40.1 MCV 87.8 MCH 28.3 MCHC 32.2 RDW 12.7 Plt Count 344 MPV 6.9 L Neut % (Auto) 65.5 Lymph % (Auto) 28.0 [place] % (Auto) 4.7 Eos % (Auto) 1.3 Baso % (Auto) 0.4 Neut # (Auto) 8.7 H Lymph # (Auto) 3.7 [place] # (Auto) 0.6 Eos # (Auto) 0.2 Baso # (Auto) 0.1 Sodium 138 Potassium 3.6 Chloride 104 Carbon Dioxide 26 Anion Gap 11.6 BUN 10 Creatinine 0.49 L D Estimated Creat Clear 80 Estimated GFR 128 Est GFR ( Amer) 155 D Glucose 245 H POC Glucose 236 H Calcium 8.5 07/25/18 07/25/18 07/25/18 20:34 16:50 11:01 WBC RBC Hgb Hct MCV MCH MCHC RDW Plt Count MPV Neut % (Auto) Lymph % (Auto) [place] % (Auto) Eos % (Auto) Baso % (Auto) Neut # (Auto) Lymph # (Auto) [place] # (Auto) Eos # (Auto) Baso # (Auto) Sodium Potassium Chloride Carbon Dioxide Anion Gap BUN Creatinine Estimated Creat Clear Estimated GFR Est GFR ( Amer) Glucose POC Glucose 298 H 274 H 333 H* Calcium DS: Diagnosis - Discharge Diagnosis (1) Acute non-ST elevation myocardial infarction (NSTEMI) Status: Acute (2) Diabetes mellitus type 2 in obese Status: Acute (3) Dyspnea on exertion Status: Acute (4) Fatigue Status: Acute (5) Left lower lobe pulmonary infiltrate Status: Acute (6) Leukocytosis Status: Acute (7) Obesity Status: Acute Discharge Plan - Patient Discharge Instructions ACTIVITY: Continue current activity DIET: continue same diet Patient Instructions: DI for Cardiac Catheterization, DI for Surgical Site Infection - Follow up Plan Disposition: Home, Self-Care Prescriptions/Medication Reconciliation: New Aspirin [Aspirin 81mg chewable tab] 81 mg PO DAILY #90 tab.chew Clopidogrel Bisulfate [Plavix 75mg Tab] 75 mg PO DAILY #90 tablet Metformin HCl [Metformin HCl ER] 500 mg PO BID #60 tab.er.24h Metoprolol Tartrate [Lopressor 25mg tablet] 25 mg PO BID #180 tablet Amlodipine Besylate [Norvasc 2.5mg tablet] 2.5 mg PO HS #90 tablet Atorvastatin Calcium [Lipitor 40mg Tablet] 40 mg PO HS #90 tablet
--- NOTE | 2018-07-26 10:51 | Progress Note ---
Internal Medicine - PN: Subj *Date: 07/26/18 *Time: 10:51 Exam Vital signs and Labs for Last 24 Hours: Temp Pulse Resp BP Pulse Ox 97.4 F L 76 16 125/60 94 L 07/26/18 08:00 07/26/18 10:42 07/26/18 10:42 07/26/18 08:00 07/26/18 10:42 Laboratory Results - last 24 hr 07/25/18 11:01: POC Glucose 333 H* 07/25/18 16:50: POC Glucose 274 H 07/25/18 20:34: POC Glucose 298 H 07/26/18 05:29: POC Glucose 236 H 07/26/18 05:30: WBC 13.3 H D, RBC 4.56, Hgb 12.9, Hct 40.1, MCV 87.8, MCH 28.3, MCHC 32.2, RDW 12.7, Plt Count 344, MPV 6.9 L, Neut % (Auto) 65.5, Lymph % (Auto) 28.0, [place] % (Auto) 4.7, Eos % (Auto) 1.3, Baso % (Auto) 0.4, Neut # (Auto) 8.7 H, Lymph # (Auto) 3.7, [place] # (Auto) 0.6, Eos # (Auto) 0.2, Baso # (Auto) 0.1 07/26/18 05:30: Sodium 138, Potassium 3.6, Chloride 104, Carbon Dioxide 26, Anion Gap 11.6, BUN 10, Creatinine 0.49 L D, Estimated Creat Clear 80, Estimated GFR 128, Est GFR ( Amer) 155 D, Glucose 245 H, Calcium 8.5 I & O for Last 24 hours: Intake & Output 07/23/18 07/24/18 07/25/18 07/26/18 23:59 23:59 23:59 23:59 Intake Total 986 / 986 1676 / 1676 1929 / 1929 1405 / 1405 Output Total 900 / 900 700 / 700 Balance 986 / 986 776 / 776 1229 / 1229 1405 / 1405 Weight 88.11 kg 88.11 kg 86.268 kg 86.381 kg Microbiology Reports for the Last 24 Hours: Microbiology 07/23/18 09:35 Urine,Clean Catch Urine Culture - Final Multiple organisms, suggests contamination. Assessment and Plan (1) Acute non-ST elevation myocardial infarction (NSTEMI) Current visit: Yes Status: Acute Category: Medical Code(s): I21.4 - Non-ST elevation (NSTEMI) myocardial infarction (2) Diabetes mellitus type 2 in obese Current visit: Yes Status: Acute Category: Medical Code(s): E11.69 - Type 2 diabetes mellitus with other specified complication; E66.9 - Obesity, unspecified (3) Dyspnea on exertion Current visit: Yes Status: Acute Category: Medical Code(s): R06.09 - Other forms of dyspnea (4) Fatigue Current visit: Yes Status: Acute Qualifiers: Fatigue type: unspecified Qualified Code(s): R53.83 - Other fatigue Category: Medical Code(s): R53.83 - Other fatigue (5) Left lower lobe pulmonary infiltrate Current visit: Yes Status: Acute Category: Medical Code(s): R91.8 - Other nonspecific abnormal finding of lung field (6) Leukocytosis Current visit: Yes Status: Acute Qualifiers: Leukocytosis type: unspecified Qualified Code(s): D72.829 - Elevated white blood cell count, unspecified Category: Medical Code(s): D72.829 - Elevated white blood cell count, unspecified (7) Obesity Current visit: Yes Status: Acute Category: Medical Code(s): E66.9 - Obesity, unspecified The patient's infection will respond to the chosen ABx?: Yes Is the patient receiving the right drug, dose, and route?: Yes Could a more targeted ABx be ordered?: No
== END 2018-07-26 11:09 | disposition home or self-care (01) | DRG 251 ==
LOC: ER 17:32 → 2ND 17:32 → OBSVTOIN 20:08 → 2ND 20:09
PROVIDERS: ADMIT Emergency Medicine; ATTEND Emergency Medicine
CPT/HCPCS: 36415; 71010; 71045; 80048; 80053; 81001; 82009; 82150; 82947; 82962; 83690; 83880; 84484; 85007; 85025; 85347; 85610; 85730; 87086; 87275; 87276; 92920; 93005; 93306; 93458; 96365; 96375; 99152; 99153; 99284; C1725; C1760; C1769; C1894; J1644; J2405; Q9967

== ENCOUNTER → 2019-02-21 13:46 | Outpatient (CLI) | payer SELFPAY ==
[2019-02-21 14:05] LABS: Basophils # 0.1 K/mm3 (0-0.2); Basophils % 0.4 % (0.1-2.0); Eosinophils # 0.2 K/mm3 (0.0-0.4); Eosinophils % 1.8 % (0.1-12.0); Hemoglobin 12.6 g/dL (12.2-16.2); Lymphocytes # 3.9 K/mm3 (0.7-4.5); Lymphocytes % 31.6 % (10-50); Mean Corpuscular HGB Conc 31.6 g/dL (31.8-35.4); Mean Corpuscular Hemoglobin 27.4 pg (27.0-31.2); Mean Corpuscular Volume 86.8 fl (81-99); Monocytes # 0.8 K/mm3 (0.1-1.0); Monocytes % 6.7 % (1.7-9.3); Neutrophils # 7.4 K/mm3 (1.8-7.8); Neutrophils % 59.4 % (37.0-80.0); Platelet Count 317 K/mm3 (142-424); Red Blood Count 4.61 M/mm3 (4.20-5.40); Red Cell Distribution Width 12.5 % (11.5-17.5); White Blood Count 12.5 K/mm3 (4.8-10.8)
[2019-02-21 15:47] LABS: Alanine Aminotransferase 33 U/L (12-78); Albumin Level 3.3 gm/dL (3.4-5.0); Alkaline Phosphatase 86 U/L (46-116); Anion Gap 11.4 mEq/L (5-15); Aspartate Amino Transferase 17 U/L (15-37); Bilirubin,Total 0.4 mg/dL (0.2-1.0); Blood Urea Nitrogen 11 mg/dL (7-18); Calcium 9.1 mg/dL (8.5-10.1); Carbon Dioxide 28 mmol/L (21.0-32.0); Chloride 101 mmol/L (98-107); Chol/HDL Ratio 3.5 (1-3.5); Cholesterol 138 mg/dL (140-200); Creatinine,Serum 0.56 mg/dL (0.55-1.02); Estimated Glomerular Filt Rate 109 ml/min (>60); GFR (African American) 132 ML/MIN (>60); Globulin 3.3 gm/dl (1.3-3.2); Glucose 240 mg/dL (74-106); HDL Cholesterol 39 mg/dL (29-89); LDL Cholesterol 59 mg/dL (0-130); Potassium 4.4 mmoL/L (3.5-5.1); Sodium 136 mmol/L (136-145); Total Protein,Serum 6.6 gm/dL (6.4-8.2); Triglycerides 199 mg/dL (30-200); VLDL Cholesterol 40 mg/dL (0-40)
[2019-02-21 16:20] LABS: Hemoglobin A1C 8.7 % (0.0-7.0)
== END ==
PROVIDERS: Visit Provider Nurse Practitioner Family
DX: E11.69 Type 2 diabetes mellitus with other specified complication (principal); E66.9 Obesity, unspecified; Z79.84 Long term (current) use of oral hypoglycemic drugs
CPT/HCPCS: 80053; 80061; 83036; 85025

== ENCOUNTER 2022-10-28 06:17 | Emergency (ER) | payer SELFPAY ==
[2022-10-28] VITALS (11 sets, daily range): BP systolic 154–218; BP diastolic 72–101; PULSE 72–82; RESP 16–18; TEMP 36.8; O2SAT 96–98; BMI 37.0
--- NOTE | 2022-10-28 06:27 | ECG_ITS ---
APPROVED REPORT Exam: Resting ECG HR:72 bpm ECG Measurements Heart Rate 72 AXES UT 178 P 9 QRSd 103 QRS -19 QT 423 T 61 QTc 447 Conclusion SINUS RHYTHM WITH SINUS ARRHYTHMIA INCOMPLETE RIGHT BUNDLE BRANCH BLOCK [90+ ms QRS DURATION, TERMINAL R IN V1/V2, 40+ ms S IN I/aVL/V4/V5/V6] BORDERLINE ECG UNCONFIRMED REPORT Electronically signed by : Serafin Stover MD 10/28/2022 15:12:59
--- NOTE | 2022-10-28 06:29 | CT_ITS ---
PROCEDURE INFORMATION: Exam: CT Head Without Contrast Exam date and time: 10/28/2022 6:37 AM Age: 66 years old Clinical indication: Stroke-like symptoms; Speech disturbance; RT lower extremity weakness; Additional info: Slurred speech, rle weakness TECHNIQUE: Imaging protocol: Computed tomography of the head without contrast. Radiation optimization: All CT scans at this facility use at least one of these dose optimization techniques: automated exposure control; mA and/or kV adjustment per patient size (includes targeted exams where dose is matched to clinical indication); or iterative reconstruction. Other technique: STROKE PROTOCOL was implemented. REPORTING DATA: Count of CT and Cardiac NM exams in prior 12 months: This patient has received 0 known CTs and 0 known cardiac nuclear medicine studies in the 12 months prior to the current study. COMPARISON: No relevant prior studies available. FINDINGS: Brain: Normal. No hemorrhage. Age appropriate white matter. No mass effect. No focal mass. The [place]-white matter junction is intact. Cerebral ventricles: No ventriculomegaly. Paranasal sinuses: Visualized sinuses are unremarkable. No fluid levels. Mastoid air cells: Visualized mastoid air cells are well aerated. Bones/joints: Unremarkable. No acute fracture. Soft tissues: Unremarkable. IMPRESSION: Normal examination of brain. There is no acute intracranial abnormality. There is no structural abnormality. ASSESSMENT: ASPECTS ([place] Stroke Program Early CT Score) is 10.
--- NOTE | 2022-10-28 06:29 | XR_ITS ---
PROCEDURE INFORMATION: Exam: XR Chest Exam date and time: 10/28/2022 7:01 AM Age: 66 years old Clinical indication: Other: Stroke protocol; Additional info: Rle weakness, mild slurred speech TECHNIQUE: Imaging protocol: Radiologic exam of the chest. Views: 1 view. COMPARISON: CR CXR1VP XR chest portable 07/22/2018 6:23 PM FINDINGS: Lungs: There is no focal consolidation. There is no mass seen. Pleural spaces: There are no pleural effusions. No pnuemothorax. Heart/Mediastinum: The heart is moderately enlarged. Bones/joints: Unremarkable. There is no acute fracture present. IMPRESSION: 1. Moderate cardiomegaly. 2. No evidence for acute cardiac or pulmonary process.
--- NOTE | 2022-10-28 06:34 | PC.NURSE ---
patient gone to ct at this time.
--- NOTE | 2022-10-28 06:41 | PC.NURSE ---
patient back from CT at this time.
--- NOTE | 2022-10-28 06:41 | HMH.EDWEAK ---
Discharge Plan Disposition Patient Disposition: Home, Self-Care Prescriptions Prescriptions: New aspirin 325 mg tablet 325 mg PO DAILY Qty: 30 2RF clopidogrel [Plavix] 75 mg tablet 75 mg PO DAILY Qty: 30 2RF lisinopril 5 mg tablet 5 mg PO DAILY Qty: 30 2RF atorvastatin [Lipitor] 10 mg tablet 10 mg PO HS Qty: 30 2RF bisoprolol fumarate 5 mg tablet 5 mg PO DAILY Qty: 30 2RF No Action metformin 500 mg tablet extended release 24 hr See Rx Instructions .ROUTE .COMPLEX Rx Instructions: Take 2 tablets by mouth twice daily Referrals Follow up/Referrals: Provider,Referral, MD [Referring] - See instructions Clinical Impressions Clinical Impression: Diabetes mellitus type 2 in obese, CAD (coronary artery disease), Acute CVA (cerebrovascular accident) Instructions Patient Instructions: DI for Stroke-Ischemic Discharge ED Provider: Aramis (ED)Bob Weakness HPI General Chief complaint: Weakness Stated complaint: possible stroke Time Seen by Provider: 10/28/22 06:20 Mode of Arrival: Wheelchair Source of Information: Patient, Spouse and Medical Record Limitations: No Limitations Description of Symptoms (Recalled from ER Triage Doc. by RN): pt c/o weakness onset last night at 5pm. pt reports pt was very restless throughout night. pt has history of diabetes. FSBS 317 History of Present Illness HPI Narrative: lt sided weakness and slurred speech which started last pm -hx of diabetes mellitus and cad - has been off meds - no fever or trauma Complaint: focal weakness Onset (ago): hour(s) Duration: constant Location: E Migration: none Severity: moderate Associated symptoms: denies other symptoms Related Data Home Medications Medication Instructions Recorded Confirmed metformin 500 mg tablet,extended See Rx Instructions .Route 10/28/22 10/28/22 release 24 hr .COMPLEX Diabetes Previous Rx's Medication Instructions Recorded aspirin 325 mg tablet 325 mg PO DAILY #30 tabs 10/28/22 atorvastatin 10 mg tablet (Lipitor) 10 mg PO HS #30 tabs 10/28/22 bisoprolol fumarate 5 mg tablet 5 mg PO DAILY #30 tabs 10/28/22 clopidogrel 75 mg tablet (Plavix) 75 mg PO DAILY #30 tabs 10/28/22 lisinopril 5 mg tablet 5 mg PO DAILY #30 tabs 10/28/22 Allergies Allergy/AdvReac Type Severity Reaction Status Date / Time No Known Allergies Allergy Verified 02/21/19 09:16 [facility] Disclaimer: The information contained in this section may have been updated after the patient was seen, as this information can be updated by other users. Medical History (Updated 10/28/22 @ 09:28 by Bob Self (ED)MD) CAD (coronary artery disease) HHD (hypertensive heart disease) HLD (hyperlipidemia) Obesity Social History Smoking Status: Never smoker alcohol intake: never substance use type: denies use current occupational status: other Travel in the last 8 weeks: Inside the [place] household members: spouse and family housing: house current occupation: farm/ house work current occupational exposures/hazards: No ROS Obtained: Yes All systems reviewed & no additional complaints except as documented Physical Exam General General appearance: alert Head Head exam: normocephalic Eye Eye exam: Present PERRL and EOMI ENT ENT exam: Present mucous membranes moist Neck Neck exam: Present trachea midline Respiratory Respiratory exam: Absent respiratory distress Cardiovascular Cardiovascular exam: Present regular rate and systolic murmur Abdominal Exam Abdominal exam: Present soft Extremities Exam Extremities exam: Absent edema Neurological Exam Neurological exam: Present alert, oriented X3, CN II-XII intact, motor sensory deficit and other (gcs=14) Skin Skin exam: Absent rash Medical Decision Making Medical Records Medical records reviewed: Yes I reviewed the patient's medical records. [place] Inquiry Pt receiving controlled substance: No
--- NOTE | 2022-10-28 06:42 | PC.NURSE ---
in room talking to patient at this time.
[2022-10-28 06:45] LABS: Coronavirus 19, PCR Not Detected (NotDetected); Influenza A, PCR Not Detected (NotDetected); Influenza B, PCR Not Detected (NotDetected)
[2022-10-28 06:46] LABS: Alanine Aminotransferase 52 U/L (12-78); Albumin Level 4.3 g/dl (3.5-5.0); Albumin/Globulin Ratio 1.2 (1.1-1.8); Alkaline Phosphatase 100 U/L (38-126); Anion Gap 10.8 mEq/L (5-15); Aspartate Amino Transferase 35 U/L (14-36); Bilirubin,Total 0.8 mg/dl (0.2-1.3); Blood Urea Nitrogen 12 mg/dl (7-17); Calcium 8.8 mg/dl (8.4-10.2); Carbon Dioxide 30 mmol/L (22.0-30.0); Chloride 95 mmol/L (98-107); Creatinine Clearance Estimated 75 mL/min (50-200); Estimated Glomerular Filt Rate 223 ml/min (>60); GFR (African American) 269 ML/MIN (>60); Globulin 3.7 g/dL (1.3-3.2); Glucose 319 mg/dl (74-100); INR 0.97 (0.9-1.1); Potassium 3.8 mmoL/L (3.5-5.1); Prothrombin Time 10.5 seconds (10.1-12.5); Sodium 132 mmol/L (136-145)
--- NOTE | 2022-10-28 06:54 | PC.NURSE ---
received phone call from bhanu
[2022-10-28 06:58] LABS: Basophils # 0.1 K/mm3 (0-0.2); Basophils % 1.1 % (0.1-2.0); Eosinophils # 0.1 K/mm3 (0.0-0.4); Hematocrit 45.7 % (37.0-47.0); Hemoglobin 15.2 g/dL (12.2-16.2); Lymphocytes # 3.4 K/mm3 (0.7-4.5); Lymphocytes % 28.8 % (10-50); Mean Corpuscular HGB Conc 33.3 g/dL (31.8-35.4); Mean Corpuscular Hemoglobin 29.1 pg (27.0-31.2); Mean Corpuscular Volume 87.4 fl (81-99); Mean Platelet Volume 7.6 fl (7.4-10.4); Monocytes # 0.6 K/mm3 (0.1-1.0); Neutrophils # 7.5 K/mm3 (1.8-7.8); Neutrophils % 64.2 % (37.0-80.0); Platelet Count 314 K/mm3 (142-424); Red Blood Count 5.23 M/mm3 (4.20-5.40); Red Cell Distribution Width 12.7 % (11.5-17.5); White Blood Count 11.7 K/mm3 (4.8-10.8)
[2022-10-28 07:00] LABS: Troponin I < 0.01 ng/ml (0.00-0.034)
--- NOTE | 2022-10-28 07:01 | PC.NURSE ---
on phone with at this time.
--- NOTE | 2022-10-28 07:05 | CT_ITS ---
PROCEDURE INFORMATION: Exam: CTA Head With Contrast, Arteriography Exam date and time: 10/28/2022 7:19 AM Age: 66 years old Clinical indication: Speech disturbance and weakness; Slurred speech; Additional info: Nih: 3, last known normal 1700 10/27/22 TECHNIQUE: Imaging protocol: Computed tomographic angiography of the head with contrast. Exam focused on the arteries. 3D rendering (Not supervised by radiologist): MIP and/or 3D reconstructed images were created by the technologist. Radiation optimization: All CT scans at this facility use at least one of these dose optimization techniques: automated exposure control; mA and/or kV adjustment per patient size (includes targeted exams where dose is matched to clinical indication); or iterative reconstruction. Contrast material: ISOVUE; Contrast volume: 100 ml; Contrast route: INTRAVENOUS (IV); REPORTING DATA: Count of CT and Cardiac NM exams in prior 12 months: This patient has received 2 known CTs and 0 known cardiac nuclear medicine studies in the 12 months prior to the current study. COMPARISON: CT HEAD/BRAIN WO CON 10/28/2022 6:37 AM FINDINGS: ANTERIOR CIRCULATION: Right internal carotid artery: Mural calcification of the cavernous portion. The artery is narrowed by 40-50%. Otherwise, patent. Right middle cerebral artery: No occlusion or significant stenosis. No aneurysm. Right anterior cerebral artery: No occlusion or significant stenosis. No aneurysm. Left internal carotid artery: Mural calcification of the cavernous portion. The artery is narrowed by 40-50%. Otherwise, patent. Left middle cerebral artery: No occlusion or significant stenosis. No aneurysm. Left anterior cerebral artery: No occlusion or significant stenosis. No aneurysm. POSTERIOR CIRCULATION: Right vertebral artery: No occlusion or significant stenosis. No aneurysm. Left vertebral artery: No occlusion or significant stenosis. No aneurysm. Basilar artery: No occlusion or significant stenosis. No aneurysm. Right posterior cerebral artery: No occlusion or significant stenosis. No aneurysm. Left posterior cerebral artery: No occlusion or significant stenosis. No aneurysm. Brain: Again noted is the 0.8 cm calcified mural nodule in the falx to the right of midline. The finding was present previously and probably represents a meningioma. No other acute intracranial changes. Cerebral ventricles: No ventriculomegaly. Paranasal sinuses: Small mucous retention cyst in the right maxillary sinus. Bones/joints: Unremarkable. No acute fracture. Soft tissues: 1.8 cm calcified granuloma in the scalp at the vertex. IMPRESSION: 1. Mural calcification of the cavernous portions of both internal carotid arteries as described. 2. Otherwise, unremarkable intracranial vasculature.
--- NOTE | 2022-10-28 07:05 | CT_ITS ---
PROCEDURE INFORMATION: Exam: CTA Neck With Contrast Exam date and time: 10/28/2022 7:19 AM Age: 66 years old Clinical indication: Speech disturbance and weakness; Slurred speech; Additional info: Nih: 3, last known normal 1700 10/27/22. Slurred speech, rle weakness TECHNIQUE: Imaging protocol: Computed tomographic angiography of the neck with contrast. 3D rendering (Not supervised by radiologist): MIP and/or 3D reconstructed images were created by the technologist. Radiation optimization: All CT scans at this facility use at least one of these dose optimization techniques: automated exposure control; mA and/or kV adjustment per patient size (includes targeted exams where dose is matched to clinical indication); or iterative reconstruction. Contrast material: ISOVUE; Contrast volume: 100 ml; Contrast route: INTRAVENOUS (IV); REPORTING DATA: Count of CT and Cardiac NM exams in prior 12 months: This patient has received 2 known CTs and 0 known cardiac nuclear medicine studies in the 12 months prior to the current study. COMPARISON: CT HEAD/BRAIN WO CON 10/28/2022 6:37 AM FINDINGS: Right common carotid artery: No stenosis. No dissection or occlusion. Right internal carotid artery: Nonflow limiting plaque of the bulb. The lumen is narrowed by 10-20%. The remaining artery is patent. No flow limiting stenosis or occlusion. Right external carotid artery: No occlusion or stenosis of the origin. Left common carotid artery: No stenosis. No dissection or occlusion. Left internal carotid artery: Nonflow limiting plaque of the bulb. The lumen is narrowed by 10-20%. The remaining artery is patent. No flow limiting stenosis or occlusion. Left external carotid artery: No occlusion or stenosis of the origin. Right vertebral artery: No stenosis. No dissection or occlusion. Left vertebral artery: No stenosis. No dissection or occlusion. Paranasal sinuses: 1.4 cm right maxillary mucous retention cyst. Thyroid: The thyroid gland is enlarged with the right larger than the left. There are several rim calcified densities probably representing nodules. If clinical concern exists, further evaluation with ultrasound is recommended. Soft tissues: Normal. No significant soft tissue swelling. Bones/joints: Mild degenerative changes in the spine. No acute fracture. IMPRESSION: 1. Nonflow limiting plaque of both carotid bulbs. 2. Otherwise, unremarkable cervical vasculature. No flow limiting stenosis or occlusion. No arterial dissection. REFERENCES: NASCET CRITERIA. The degree of stenosis in the cervical segment of the internal carotid artery is based on NASCET criteria. Normal is no stenosis. Mild is less than 50% stenosis. Moderate is 50-69% stenosis. Severe is 70% to 99% stenosis. Total occlusion is no detectable patent lumen.
--- NOTE | 2022-10-28 07:18 | PC.NURSE ---
pt to CT via stretcher, nurse assist to lift pt to scan table.
--- NOTE | 2022-10-28 07:27 | PC.NURSE ---
pt back to room from ct
[2022-10-28 07:41] LABS: Hemoglobin A1C 10.6 % (4.0-6.0)
--- NOTE | 2022-10-28 07:42 | PC.NURSE ---
states that pt does not want to go any further with any medical care. States that they want to go home from here. Discussed her not being able to ambulate and her weakness which he states they have lifts and they have a son that lives close by and family that will help. They prefer to go home and use home remedies. States that she had a heart cath and needed stents 4 years ago and they could not due that, they have used home remedies since and that is probably what has kept her alive and her arteries open. is asking home much longer it will be so that he can tell his ride if he needs to leave or come back. Pt is A&O x4 stating that she wants to go home. states he just wants to do her wishes, if she was to get into pain or anything they might reach out to the doctor for some pain medicine. MD aware and states to see if pt can ambulate at this time.
--- NOTE | 2022-10-28 07:47 | PC.NURSE ---
This nurse and two other staff members assisted pt to the wheelchair, pt is able to bear little weight to assist with transfer, at . Discussed that pt is very weak with little weight bearing with and pt, states that they knew that and she can't walk, although they have walkers, a lift and family at home to help her. Discussed that transfer to a car would be very difficult, states that yes that they had a hard time getting her to the car to get her here but him and his son were able to do so. states that he wants to honor her wishes and if they needed anything for pain later on they might reach out for help with that but at this time they want to use home remedies. PT is A&O x4, states she wants to go home, denies any pain at this time. Understands that she came in for a stroke. Pt requested that she stay in the wheelchair at this time. aware. Waiting on CTA results
--- NOTE | 2022-10-28 08:27 | PC.NURSE ---
Family at BS; Brittney spoke with radiology regarding CTA results
--- NOTE | 2022-10-28 08:27 | PC.NURSE ---
Rounded on pt, states her went to get her something to eat, she didnt get to eat earlier, daughter at bs. manual bp taken. pt states she didn't get much sleep last night. comfortable in wheelchair at this time.
--- NOTE | 2022-10-28 08:30 | PC.NURSE ---
called radiology to check on CTA, tech states that she called and asked them to move them up to be read, states they said they will get to it as soon as they can.
--- NOTE | 2022-10-28 08:51 | PC.NURSE ---
on the phone with REDAD
--- NOTE | 2022-10-28 09:07 | PC.NURSE ---
Dr. Self at to update pt and family on POC
--- NOTE | 2022-10-28 09:20 | PC.NURSE ---
Assisted patient onto a bed jurado with Dread OROZCO and Tammie DURANT. Patient was taken off bed jurado and cleaned off
--- NOTE | 2022-10-28 09:23 | PC.NURSE ---
Pt placed on bedpan to urinate. PT was able to bear a little more weight than prior ambulation.
== END 2022-10-28 09:47 | disposition home or self-care (01) ==
PROVIDERS: Emergency Provider Emergency Medicine; PCP Emergency Medicine
DX: I67.81 Acute cerebrovascular insufficiency (principal); E11.69 Type 2 diabetes mellitus with other specified complication; I25.10 Atherosclerotic heart disease of native coronary artery without angina pectoris
CPT/HCPCS: 70450; 70496; 70498; 71045; 80053; 83036; 84484; 85025; 85610; 93005; 96374; 96375; 99285; C9803; Q9967; U0003; U0005

== ENCOUNTER → 2023-01-31 13:59 | Outpatient (CLI) | payer SELFPAY ==
[2023-01-31 12:32] LABS: Basophils # 0.1 K/mm3 (0-0.2); Basophils % 0.8 % (0.1-2.0); Eosinophils # 0.2 K/mm3 (0.0-0.4); Eosinophils % 1.4 % (0.1-12.0); Hematocrit 49.7 % (37.0-47.0); Hemoglobin 15.8 g/dL (12.2-16.2); Lymphocytes # 3.6 K/mm3 (0.7-4.5); Mean Corpuscular HGB Conc 31.8 g/dL (31.8-35.4); Mean Corpuscular Hemoglobin 28.7 pg (27.0-31.2); Mean Corpuscular Volume 90.3 fl (81-99); Mean Platelet Volume 8.2 fl (7.4-10.4); Monocytes # 0.6 K/mm3 (0.1-1.0); Neutrophils # 6.6 K/mm3 (1.8-7.8); Neutrophils % 59.9 % (37.0-80.0); Platelet Count 229 K/mm3 (142-424); Red Cell Distribution Width 12.8 % (11.5-17.5)
[2023-01-31 12:43] LABS: Alanine Aminotransferase 38 U/L (12-78); Albumin Level 3.6 g/dl (3.5-5.0); Albumin/Globulin Ratio 1.2 (1.1-1.8); Alkaline Phosphatase 109 U/L (38-126); Anion Gap 19.2 mEq/L (5-15); Aspartate Amino Transferase 35 U/L (14-36); Bilirubin,Total 0.5 mg/dl (0.2-1.3); Blood Urea Nitrogen 14 mg/dl (7-17); Calcium 9.2 mg/dl (8.4-10.2); Carbon Dioxide 24 mmol/L (22.0-30.0); Chloride 98 mmol/L (98-107); Estimated Glomerular Filt Rate 222 ml/min (>60); GFR (African American) 268 ML/MIN (>60); Glucose 338 mg/dl (74-100); Potassium 4.2 mmoL/L (3.5-5.1); Sodium 137 mmol/L (136-145); Total Protein,Serum 6.6 g/dl (6.3-8.2)
[2023-01-31 15:35] LABS: Hemoglobin A1C 10.3 % (4.0-6.0)
== END ==
PROVIDERS: PCP Emergency Medicine; Visit Provider Emergency Medicine
DX: E11.69 Type 2 diabetes mellitus with other specified complication (principal); I11.9 Hypertensive heart disease without heart failure; R73.09 Other abnormal glucose; E66.9 Obesity, unspecified; Z68.34 Body mass index [BMI] 34.0-34.9, adult; Z79.84 Long term (current) use of oral hypoglycemic drugs
CPT/HCPCS: 36415; 80053; 83036; 85025

== ENCOUNTER 2023-02-28 14:00 | Outpatient (RCR) | payer SELFPAY ==
--- NOTE | 2023-02-15 16:27 | [facility]H.PTOPWND ---
Rehab Outpt Wound Evaluation Rehab OP Wound Evaluation Start: 02/15/23 15:28 Freq: Status: Active Protocol: Document 02/15/23 16:13 AMADEO (Rec: 02/15/23 16:27 PHOREILEEN [id number]) E-signed By Corey Cheung, PT Subjective/History History History This is the initial PT eval for Gloria Lynn, 67 yowf who presents with L LE wounds x ~ 3 mos. 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 Family reports significant increase in L LE edema after her CVA, as well. The initial wound injury was caused by her toenails scratching her L LE. Sh has PMH of CAD, HLD, HTN, DM with A1c 10.3% within the past mo. Subjective Subjective She reports no current pain in her L LE. 2+ pitting edema noted form knee distally on the L LE. Minimal blanchable per-wound erythema noted. Family instructed in dressing wounds with Therahoney gel and non-adherent Telfa pad secondary. Wound Eval Wound Left Lower Medial Calf Wound Type Abrasion Is This a Chronic Wound Yes Wound Length (cm) 3.3 Wound Width (cm) 2.2 Wound Depth (cm) 0.1 Wound Bed Appearance Yellow,Eschar Percentage of Eschar (Yellow) (%) 100 Wound Margins Description Well Defined Surrounding Tissue Appearance [place],Bright Red Edema Type Pitting Edema Degree 2+ Query Text:1+ Trace, Barely Detectable, Rebound 15-30 seconds 2+ Moderate, Slight Indentation, Rebound 10-20 seconds 3+ Deep, Deeper Indentation, Rebound > 30 seconds 4+ Very Deep, Rebound > 60 seconds Drainage Description Serosanguineous Drainage Amount Scant Drainage Odor No Odor Primary Dressing therahoney gel Wound Secondary Dressing Type Non-Adherent Gauze Pad,Elastic Bandage Wound Debridement Method Mechanical Wound Debridement Amount of Tissue Minimal Removed Wound Debridement Result Necrotic Tissue Remains Dressing Change Patient Tolerance Tolerated Well Left Upper Medial Calf Wound Type
== END 2023-02-28 14:05 | disposition home or self-care (01) ==
LOC: PT 14:00
PROVIDERS: Visit Provider Emergency Medicine
DX: L97.929 Non-pressure chronic ulcer of unspecified part of left lower leg with unspecified severity (principal); I63.9 Cerebral infarction, unspecified
CPT/HCPCS: 97163; 97597

== ENCOUNTER 2023-02-28 14:25 | Outpatient (RCR) | payer SELFPAY | END 2023-02-28 14:30 | disposition home or self-care (01) | LOC: OT 14:25 | PROVIDERS: Visit Provider Emergency Medicine | DX: I69.398 Other sequelae of cerebral infarction (principal); R53.1 Weakness | CPT/HCPCS: 97165; 97530 ==

== ENCOUNTER 2023-02-28 14:30 | Outpatient (RCR) | payer SELFPAY ==
--- NOTE | 2023-02-15 16:32 | HMH.PTOPEV ---
PT Outpatient Evaluation Rehab PT Outpatient Evaluation Start: 02/15/23 15:44 Freq: Status: Active Protocol: Document 02/15/23 15:44 NAHUM (Rec: 02/15/23 16:31 NAHUM [id number]) E-signed By Kapil Huang, PT Outpatient Therapy Subjective History Subjective History Pt's spouse reports pt sustained CVA on 10/27- which effected the left side of her body. Pt reports left LE weakness since CVA, and reports difficulty with standing, walking, and sitting d/t weakness and poor coordination. Pt's spouse also reports pt has left hand weakness effecting ability to hold onto walker, and B/L swelling 'which is bad because her sugar isn't good.' Chief Complaint Weakness,Decreased Coordination Symptom Type Ache,Dull Symptoms Relieved By Rest/Positioning Symptoms Aggravated By Standing,Physical Activity, Walking Prior Functional Limitations None Current Functional Limitations Housework,Standing,Walking, Stairs Symptom Description Intermittent Level of pain today (0-10) 0 Pain scale - at its best (0-10) 0 Pain scale - at its worst (0-10) 3 Hip/Knee Eval Assistive Device Assistive Devices Wheelchair MMT left Hip Flexion Strength Grade 3- Fair- Hip Abduction Strength Grade 3- Fair- Hip Adduction Strength Grade 4- Good- Knee Extension Strength Grade 3+ Fair+ Knee Flexion Strength Grade 3+ Fair+ ROM Knee Flexion Active Range of Motion ( 0-115 degrees) Ankle/Foot Eval ROM Ankle/Foot Dorsiflexion w/Knee Extended 0 Active Range Motion (degrees) MMT Ankle Dorsiflexion Strength Grade 3+ Fair+ Ankle Plantarflexion Strength Grade 3+ Fair+ Foot Eversion Strength Grade 4- Good- Foot Inversion Strength Grade 4- Good- Outpatient Therapy Assessment Impairments Problems/Impairmments Impaired Range of Motion, Impaired Strength,Impaired Gait Pattern,Impaired Walking, Impaired Standing,Impaired Household Care,Impaired Stair Climbing,Subjective C/O Pain, Impaired Self Care/Self Management Prognosis Rehab Potential Fair
== END 2023-02-28 14:35 | disposition home or self-care (01) ==
LOC: PT 14:30
PROVIDERS: Visit Provider Emergency Medicine
DX: I63.89 Other cerebral infarction (principal)
CPT/HCPCS: 97110; 97163

== ENCOUNTER 2025-01-31 15:01 | Inpatient (IN) | payer SELFPAY ==
[2025-01-31] VITALS (17 sets, daily range): BP systolic 106–195; BP diastolic 44–121; PULSE 73–94; RESP 16–20; TEMP 36.6–37.2; O2SAT 92–97; BMI 41.1
--- NOTE | 2025-01-31 15:24 | ECG_ITS ---
APPROVED REPORT Exam: Resting ECG HR:88 bpm ECG Measurements Heart Rate 88 AXES CA 184 P 27 QRSd 98 QRS -21 QT 382 T 92 QTc 427 Conclusion SINUS RHYTHM WITH OCCASIONAL SUPRAVENTRICULAR PREMATURE COMPLEXES BORDERLINE LEFT AXIS DEVIATION [QRS AXIS < -20] LOW QRS VOLTAGE IN PRECORDIAL LEADS [QRS DEFLECTION < 1.0 mV IN CHEST LEADS] PATTERN CONSISTENT WITH PULMONARY DISEASE INCOMPLETE RIGHT BUNDLE BRANCH BLOCK [90+ ms QRS DURATION, TERMINAL R IN V1/V2, 40+ ms S IN I/aVL/V4/V5/V6] ST DEVIATION AND MODERATE T-WAVE ABNORMALITY, CONSIDER LATERAL ISCHEMIA [-0.1+ mV T-WAVE IN I/aVL/V5/V6] Not significantly changed from prior EKG No STEMI Electronically signed by : MALA YOON, 01/31/2025 22:46:02
--- NOTE | 2025-01-31 15:25 | XR_ITS ---
PROCEDURE INFORMATION: Exam: XR Chest Exam date and time: 01/31/2025 3:31 PM Age: 69 years old Clinical indication: Shortness of breath; Additional info: SOA, edema TECHNIQUE: Imaging protocol: Radiologic exam of the chest. Views: 1 view. Total images: 1 COMPARISON: CR XR CHEST PORTABLE 10/28/2022 7:01 AM FINDINGS: Lungs: No consolidation. Pleural spaces: No pleural effusions. Heart/Mediastinum: Heart demonstrates mild diffuse enlargement. Vasculature: Mild atherosclerotic disease. Bones/joints: The thoracic spine demonstrates mild degenerative changes at multiple levels. Rightward curvature of the thoracic spine with mild degenerative changes. Degenerative changes of the glenohumeral and acromioclavicular joints. Soft tissues: The patient's chin overlies the lung apices. Rounded nodule projects over the right lung base and may be related to the right nipple shadow. Repeat study with nipple markers recommended. IMPRESSION: 1. Mild cardiomegaly. 2. Rounded nodule projects over the right lung base and may be related to the right nipple shadow. Repeat study with nipple markers recommended.
--- NOTE | 2025-01-31 15:26 | XR_ITS ---
PROCEDURE INFORMATION: Exam: XR Right Foot Exam date and time: 01/31/2025 3:31 PM Age: 69 years old Clinical indication: Pain; Other: 5th digit wound, infected TECHNIQUE: Imaging protocol: Radiologic exam of the right foot. Views: 3 or more views. Total images: 3 COMPARISON: No relevant prior studies available. FINDINGS: Bones/joints: Degenerative changes of the interphalangeal joints. No evidence of acute fracture or dislocation. Calcaneal spurs are present. Soft tissues: Lateral soft tissue swelling. IMPRESSION: 1. Degenerative changes of the interphalangeal joints. 2. Lateral soft tissue swelling. 3. No evidence of acute fracture or dislocation.
--- NOTE | 2025-01-31 15:59 | HMH.EDGENADL ---
Discharge Plan Disposition Chief Complaint: Weakness Clinical Impressions Clinical Impression: Gangrene of right foot, Cellulitis, Pulmonary emboli, Celiac artery stenosis, Anasarca, Blood clot in leg Discharge ED Provider: Usha Rajan General Adult HPI General Chief complaint: Weakness Stated complaint: legs swelling, sent by doctor Time Seen by Provider: 01/31/25 15:06 Mode of Arrival: Wheelchair Source of Information: Patient Description of Symptoms (Recalled from ER Triage Doc. by RN): patient states she was sent by pcp for BLE swelling shortness of breath and a wound under her right pinky toe. History of Present Illness HPI narrative: This patient is a 69-year-old Orthodoxy female with a history of CAD, hypertension, hyperlipidemia, hypertensive heart disease, type 2 diabetes, prior CVA presents to the emergency department for evaluation of concern for leg swelling and shortness of breath as well as a wound of her fifth digit on her right foot. Patient reports that she has had leg swelling for a while now that seems to be getting worse, so 3 days ago she was put on Lasix by her primary care provider. Despite taking Lasix, the swelling continues to worsen, and she feels that she is not making as much urine as she should be with the Lasix. She is still making urine. She notes swelling all over and shortness of breath, she also notes pain in her bilateral feet which she attributes to the swelling. She has a wound to her right fifth digit but states she did not even notice this until today. No fevers, chills, or other concerns noted. Related Data Home Medications ?Medication ?Instructions ?Recorded ?Confirmed metformin 500 mg tablet,extended See Rx Instructions .Route 10/28/22 10/28/22 release 24 hr .COMPLEX Diabetes Previous Rx's ?Medication ?Instructions ?Recorded mupirocin 2 % topical ointment 1 applic topical BID #22 grams 01/19/23 aspirin 325 mg tablet 325 mg PO DAILY #30 tabs 01/29/23 atorvastatin 10 mg tablet (Lipitor) 10 mg PO HS #30 tabs 01/29/23 bisoprolol fumarate 5 mg tablet 5 mg PO DAILY #30 tabs 01/29/23 cephalexin 500 mg capsule 500 mg PO TID #30 caps 01/29/23 clopidogrel 75 mg tablet (Plavix) 75 mg PO DAILY #30 tabs 01/29/23 lisinopril 5 mg tablet 5 mg PO DAILY #30 tabs 01/29/23 minocycline 100 mg capsule 100 mg PO BID #20 caps 01/31/23 glipizide 5 mg tablet, extended 5 mg PO QAM #30 tabs 02/02/23 release 24 hr (Glucotrol XL) Allergies Allergy/AdvReac Type Severity Reaction Status Date / Time No Known Allergies Allergy Verified 02/21/19 09:16 [facility] Disclaimer: The information contained in this section may have been updated after the patient was seen, as this information can be updated by other users. Medical History Wound of left lower extremity HLD (hyperlipidemia) HHD (hypertensive heart disease) CAD (coronary artery disease) Obesity Social History Smoking Status: Never smoker alcohol intake: never substance use type: denies use current occupational status: other Travel in the last 8 weeks?: Inside the [place] household members: spouse and family housing: house current occupation: farm/ house work current occupational exposures/hazards: No Have you lived/traveled outside [place] in past 30 days?: No Contact w/someone who lives/traveled outside US past 30 days?: No Exposure to someone with infectious disease in past 14 days?: No Do you have a fever (greater than 100.4 F or 38 C)?: No Have you tested positive for COVID-19?: No Exposed to someone with COVID-19 in past 14 days?: No Do you have a sore throat?: No Do you have a cough?: No Do you have any weakness?: No Do you have any diarrhea?: No Are you experiencing any unusual bleeding?: No Do you have any muscle aches/pain?: No Do you have any abdominal pain?: No Are you experiencing loss of taste or smell?: No Other Medical History Have you received the Flu Vaccine for this season: No Have you received the Pneumonia Vaccine: No ROS Obtained: Yes All systems reviewed & no additional complaints except as documented Physical Exam General General appearance: alert, in no apparent distress and obese Head Head exam: atraumatic and normocephalic Eye Eye exam: Present normal appearance, PERRL and EOMI ENT ENT exam: Present normal exam, normal oropharynx, mucous membranes moist and normal external ear exam Neck Neck exam: Present normal inspection, full ROM and trachea midline; Absent tenderness Chest Chest inspection: Present normal inspection and symmetric chest wall rise; Absent tenderness Respiratory Respiratory exam: Present normal lung sounds bilaterally; Absent respiratory distress, wheezes, stridor or accessory muscle use Cardiovascular Cardiovascular exam: Present regular rate and normal rhythm Abdominal Exam Abdominal exam: Present soft; Absent distention, tenderness or guarding Extremities Exam Extremities exam: Present tenderness, normal capillary refill, edema and other (Right fifth toe has deep soft tissue defect on the plantar aspect of the toe and is very [place] and dusky. She also has anasarca.) Back Exam Back exam: Present normal inspection and full ROM; Absent tenderness Neurological Exam Neurological exam: Present alert, oriented X3 and CN II-XII intact; Absent motor sensory deficit Psychiatric Psychiatric exam: Present normal affect and normal mood Skin Skin exam: Present warm and dry Medical Decision Making Medical Records Medical records reviewed: Yes I reviewed the patient's medical records. Screening: Per USPSTF and CDC recommendations, given the prevalence of disease in our region, it is our hospital?s policy to screen for HIV and viral Hepatitis for all patients aged 18 and over and those with ongoing risk factors. [place]quin Inquiry Pt receiving controlled substance: No Vital Signs: 01/31/25 15:11 01/31/25 15:14 01/31/25 15:30 Temperature 98.9 F Temperature Source Oral Pulse Rate 92 H 83 Pulse Rate [Right Radial] 93 H Respiratory Rate 19 Blood Pressure 143/121 H 161/59 H Blood Pressure [Right Arm] 143/121 H Blood Pressure Mean Blood Pressure Mean [Right Arm] 128 Blood Pressure Source Blood Pressure Source [Right Arm] Automatic Cuff Blood Pressure Position Blood Pressure Position [Right Arm] Supine 02 Sat by Pulse Oximetry 95 95 96 Oxygen Delivery Method Room Air 01/31/25 16:00 01/31/25 16:31 01/31/25 16:58 Temperature Temperature Source Pulse Rate 76 93 H 92 H Pulse Rate [Right Radial] Respiratory Rate 20 Blood Pressure 146/64 H 195/99 H 195/99 H Blood Pressure [Right Arm] Blood Pressure Mean 91 Blood Pressure Mean [Right Arm] Blood Pressure Source Blood Pressure Source [Right Arm] Blood Pressure Position Blood Pressure Position [Right Arm] 02 Sat by Pulse Oximetry 96 97 95 Oxygen Delivery Method 01/31/25 17:00 01/31/25 18:00 01/31/25 19:03 Temperature Temperature Source Pulse Rate 94 H 92 H 87 Pulse Rate [Right Radial] Respiratory Rate 20 16 17 Blood Pressure 182/81 H 138/66 159/53 H Blood Pressure [Right Arm] Blood Pressure Mean 114 90 88 Blood Pressure Mean [Right Arm] Blood Pressure Source Blood Pressure Source [Right Arm] Blood Pressure Position Blood Pressure Position [Right Arm] 02 Sat by Pulse Oximetry 95 94 L 94 L Oxygen Delivery Method Room Air 01/31/25 19:30 01/31/25 20:00 01/31/25 20:31 Temperature Temperature Source Pulse Rate 85 84 77 Pulse Rate [Right Radial] Respiratory Rate 18 16 18 Blood Pressure 136/64 149/71 H 106/44 L Blood Pressure [Right Arm] Blood Pressure Mean 88 82 64 Blood Pressure Mean [Right Arm] Blood Pressure Source Blood Pressure Source [Right Arm] Blood Pressure Position Blood Pressure Position [Right Arm] 02 Sat by Pulse Oximetry 94 L 96 94 L Oxygen Delivery Method Room Air Room Air Room Air 01/31/25 21:00 01/31/25 21:30 01/31/25 22:40 Temperature 98.8 F Temperature Source Oral Pulse Rate 80 73 Pulse Rate [Right Radial] Respiratory Rate 17 16 16 Blood Pressure 155/70 H 160/67 H 128/65 Blood Pressure [Right Arm] Blood Pressure Mean 90 97 Blood Pressure Mean [Right Arm] Blood Pressure Source Automatic Cuff Blood Pressure Source [Right Arm] Blood Pressure Position Supine Blood Pressure Position [Right Arm] 02 Sat by Pulse Oximetry 94 L 94 L Oxygen Delivery Method Room Air Room Air Room Air Lab Data Lab results reviewed: Yes I reviewed the patient's lab results. Lab Results 01/31/25 15:47: WBC 18.2 H, RBC 4.25, Hgb 12.7, Hct 37.4, MCV 88.0, MCH 29.9, MCHC 34.0, RDW 12.5, Plt Count 307, MPV 8.7, Neut % (Auto) 73.1, Lymph % (Auto) 18.0, Turner % (Auto) 6.5, Eos % (Auto) 1.5, Baso % (Auto) 0.4, Neut # (Auto) 13.3 H, Lymph # (Auto) 3.3, Turner # (Auto) 1.2 H, Eos # (Auto) 0.3, Baso # (Auto) 0.1, ESR 58 H, Sodium 132 L, Potassium 3.8, Chloride 101, Carbon Dioxide 28, Anion Gap 6.8, BUN 13, Creatinine 0.50 L, Estimated Creat Clear 72, Estimated GFR 122, Est GFR ( Amer) 148, Glucose 316 H, Hemoglobin A1c 11.9 H, Calcium 9.1, Phosphorus 2.5, Magnesium 1.7, Total Bilirubin 0.4, AST 39 H, ALT 37, Alkaline Phosphatase 82, Troponin I 0.02, C-Reactive Protein 67.8 H, NT-Pro-B Natriuret Pep 522 H, Total Protein 7.1, Albumin 3.4 L, Globulin 3.7 H, Albumin/Globulin Ratio 0.9 L, TSH 0.69, Thyroxine (T4) 9.1, HCV Ab JOSEPH w/Rflx PCR Qn Negative, HIV Ag/Ab Combo Qual Negative 01/31/25 15:59: VBG pH 7.49 H, VBG pCO2 35.0, VBG pO2 114.7 H, VBG HCO3 26.0, VBG Total CO2 27.0, VBG O2 Saturation 98.8 H, VBG Base Excess 2.6 H, VBG Lactic Acid 2.1 H 01/31/25 16:20: PT 11.4, INR 1.03, APTT 25.2, D-Dimer 1.25 H 01/31/25 16:21: Urine Color Yellow, Urine Appearance Clear, Urine pH 5.5, Ur Specific [place] 1.020, Urine Protein Negative, Urine Glucose (UA) 1+, Urine Ketones Negative, Urine Blood Trace-i, Urine Nitrate Negative, Urine Bilirubin Negative, Urine Urobilinogen 0.2, Ur Leukocyte Esterase Negative, Urine RBC 3-5, Urine WBC Occasional, Ur Squamous Epith Cells Occasional, Urine Bacteria 1+ 01/31/25 16:25: APTT 24.9 L 01/31/25 18:27: Troponin I 0.04 H 01/31/25 19:37: Lactate 1.5 01/31/25 21:21: Troponin I 0.07 H 01/31/25 15:47 01/31/25 15:47 Orders (Tests/Meds): ED MEDICATIONS Generic Name Dose Route Start Last Admin Trade Name Freq PRN Reason Stop Dose Admin Acetaminophen 650 mg 01/31/25 21:57 Acetaminophen 325mg Tab PO 03/02/25 21:56 Q4HP PRN Fever or Mild Pain (1-3) Vancomycin/PEG/NADA/Lysine/Water 1.25 gm in 250 mls @ 125 mls/hr 02/01/25 05:00 Vancomycin 1.25gm/250ml (Peg) Premix IV 02/01/25 06:59 ONCE ONE Heparin Sodium/Dextrose 500 mls @ 19.994 mls/hr 01/31/25 19:15 01/31/25 20:07 Heparin 25,000 Units In D5w 500ml Premix IV 03/02/25 19:14 19.994 mls/hr .Q25H VLAD Administration 11.6 UNITS/KG/HR Clindamycin Phosphate 900 mg in 50 mls @ 100 mls/hr 02/01/25 06:00 Clindamycin 900mg/50ml D5w Premix IV 02/11/25 05:59 Q8H VLAD Cefepime HCl 1 gm/ Sodium 50 mls @ 100 mls/hr 02/01/25 10:00 Chloride IV 02/11/25 09:59 Q12H [facility] Insulin Human Lispro 0 unit 02/01/25 06:00 Humalog 100 Units/Ml 10ml Vial (Ssi) SUBCUT 03/03/25 05:59 ACHS [facility] Protocol Miscellaneous 1 each 01/31/25 16:30 Vancomycin Consult Request NOTAPPLIC 03/02/25 16:29 CONSULT PHARMACY [facility] Miscellaneous 1 each 01/31/25 19:00 Heparin Drip Consult NOTAPPLIC 03/02/25 18:59 CONSULT PHARMACY [facility] Miscellaneous 1 each 01/31/25 22:00 Vancomycin Consult Request NOTAPPLIC 03/02/25 21:59 CONSULT PHARMACY [facility] Sodium Chloride 10 ml 01/31/25 17:16 01/31/25 17:22 Sodium Chloride 0.9% 10ml Syr (Rad Only) IV 03/02/25 17:15 10 ml NEEDED PRN Administration Maintain IV Site Discontinued Medications Generic Name Dose Route Start Last Admin Trade Name Freq PRN Reason Stop Dose Admin Furosemide 80 mg 01/31/25 16:44 01/31/25 16:53 Furosemide 40mg/4ml Vial IV 01/31/25 16:45 80 mg ONCE ONE Administration Heparin Sodium (Porcine) 3,500 unit 01/31/25 19:15 01/31/25 20:07 Heparin Sodium 5,000 Unit/Ml Vial IV 01/31/25 19:16 3,500 unit ONCE ONE Administration Cefepime HCl 2 gm/ Sodium 100 mls @ 200 mls/hr 01/31/25 16:23 01/31/25 16:38 Chloride IV 01/31/25 16:52 200 mls/hr ONCE ONE Administration Vancomycin HCl 2,250 mg/ 250 mls @ 125 mls/hr 01/31/25 16:30 01/31/25 19:03 Sodium Chloride IV 01/31/25 18:29 Not Given ONCE ONE Vancomycin HCl 2,250 mg/ 250 mls @ 125 mls/hr 01/31/25 16:45 01/31/25 17:52 Sodium Chloride IV 01/31/25 18:44 125 mls/hr ONCE ONE Administration Clindamycin Phosphate 900 mg in 50 mls @ 100 mls/hr 01/31/25 19:56 01/31/25 20:35 Clindamycin 900mg/50ml D5w Premix IV 01/31/25 20:25 100 mls/hr ONCE ONE Administration Iopamidol 180 ml 01/31/25 17:16 01/31/25 17:22 Iopamidol-370 (76%);100ml Bottle IV 01/31/25 17:17 180 ml ONCE ONE Administration Sodium Chloride 100 ml 01/31/25 17:16 01/31/25 17:22 0.9 % Sodium Chloride 50 Ml Vial IV 01/31/25 17:17 100 ml ONCE ONE Administration ORDERS Category Date Time Status CT angio abdomen/femoral Stat Cat Scan 01/31/25 16:57 Completed CTA Chest [CT angio chest PE protocol] Stat Cat Scan 01/31/25 16:51 Completed CXR --portable [XR chest portable] Stat Exams 01/31/25 15:25 Completed Foot XR right minimum 3 views [XR foot RT min 3V] Stat Exams 01/31/25 15:26 Completed BNP [NT Pro Brain Natriuretic Pep.] Stat Lab 01/31/25 15:47 Completed CRP [C-Reactive Protein] Stat Lab 01/31/25 15:47 Completed Complete Blood Count Auto Diff Stat Lab 01/31/25 15:47 Completed Comprehensive Metabolic Panel Stat Lab 01/31/25 15:47 Completed D-Dimer Stat Lab 01/31/25 16:20 Completed ESR [Erythrocyte Sedimentation Rate] Stat Lab 01/31/25 15:47 Completed HIV Combo Stat Lab 01/31/25 15:47 Completed Hemoglobin A1C Stat Lab 01/31/25 15:47 Completed Hepatitis C Ab Qual. W/ RFX Stat Lab 01/31/25 15:47 Completed Lactic Acid Follow Up (RFLX 1) Stat Lab 01/31/25 19:37 Completed MAG [Magnesium] Stat Lab 01/31/25 15:47 Completed PHOS [Phosphorous] Stat Lab 01/31/25 15:47 Completed PT INR [Prothrombin Time INR] Stat Lab 01/31/25 16:20 Completed PTT Heparin (inpatient only) Stat Lab 01/31/25 16:25 Completed PTT Heparin (inpatient only) Stat Lab 01/31/25 22:30 Ordered PTT [Activated Partial Thrombo Time] Stat Lab 01/31/25 16:20 Completed T4 (Thyroxine) Stat Lab 01/31/25 15:47 Completed TSH [Thyroid Stimulating Hormone] Stat Lab 01/31/25 15:47 Completed Trop I [Troponin I] Stat Lab 01/31/25 15:47 Completed Troponin I Q3H Lab 01/31/25 18:27 Completed Troponin I Q3H Lab 01/31/25 21:21 Completed UA [Urinalysis and Microscopic] Stat Lab 01/31/25 16:21 Completed Blood Culture Stat Micro 01/31/25 15:55 Received Wound Culture and Gram Stain Stat Micro 01/31/25 17:34 Results VBG [Venous Blood Gas] Stat RT 01/31/25 15:59 Completed ECG Data Tracing #1: I reviewed this ECG and interpreted as documented below: Normal sinus rhythm with a ventricular of [address] changes concerning for STEMI. Nonspecific ST/T wave changes. Incomplete right bundle branch block. No significant interval change from prior EKG. ECG initial impression date: 01/31/25 ECG initial impression time: 15:26 Medical Decision Narrative: In summary, this patient is a 69-year-old Orthodoxy female presenting to the Emergency Department for evaluation of swelling all over, shortness of breath, and a wound to her right foot. Differential diagnoses considered include but are not limited to sepsis, cellulitis, osteomyelitis, CHF exacerbation, renal failure, DVT, PE among others. Ruling out the most morbid conditions drove assessment. It should be noted patient's history includes obesity, hypertension, hyperlipidemia, CAD, type 2 diabetes, hypertensive heart disease which likely are not at goal therapy. This complicates all aspects of care by increasing patient's risk for morbidity. I reviewed patient's past medical records and noted prior evaluations for prior CVA and prior CO. On exam, the patient is lying in bed in no acute distress. She has anasarca and is obese with high blood pressure noted on cardiac telemetry, but otherwise reassuring vitals on cardiac telemetry. She is afebrile. She has no increased work of breathing. She has a very deep tissue defect to the plantar aspect of the right fifth toe, and the toe is [place] and dusky. Workup included CBC, CMP, ESR, CRP, D-dimer, TSH, T4, troponin, BNP, magnesium, phosphorus, VBG, lactic acid, blood cultures, EKG, chest x-ray, and x-rays of the right foot. I independently interpreted x-rays prior to the radiologist read and noted no obvious focal consolidation in the lungs, no significant pulmonary edema, no obvious osteomyelitis or gas in the right foot. Please see their read for final interpretation. Labs were obtained that demonstrated leukocytosis at 18.2. She has elevated ESR and CRP at 67.8 and 58 respectively. Initial troponin is negative at 0.02, second troponin slightly increased at 0.04. D-dimer obtained was elevated, so I added on CTA PE protocol. Given the nature of her foot wound and the fact that she is a vasculopath with known atherosclerotic disease, I elected to obtain a CTA with runoff as well. In the meantime, for her foot infection is concerning for gangrene, I added empiric antibiotics with IV vancomycin, cefepime, and clindamycin. I also added 80 mg of IV Lasix for diuresis given anasarca and reassuring renal function on chemistry. I did not give sepsis bolus given the anasarca, as I felt it would be detrimental with the patient. On reassessment, the patient is resting comfortably and is hemodynamically stable. I independently interpreted CT scans prior to radiology read and noted PEs as well as poor flow to her bilateral feet. I do not see any gas or evidence of for osteomyelitis. I had an interactive discussion with the radiologist who noted a clot in the left posterior tibial artery as well in addition to the poor flow. Please radiology read for final interpretation. Given these findings, elected to start the patient on a heparin drip. I had an indirect discussion with Dr. Carpio with podiatry given the patient's foot infection, and she recommended transfer to higher level of care with vascular surgery. family is very resistant to having the patient transferred. They state that they would like to keep her here to trial IV antibiotics and see if the infection gets better, however advised that this is not recommended, as she would likely need surgical evaluation/intervention for source control. They are agreeable for me to try to call to see what they recommend. Given this, initiated discussions with . I spoke with Dr. Shah in the transfer center who advised they are awaiting imaging and will call back with vascular surgery. As of 1999, awaiting callback from . I had an interactive discussion with Dr. Shah and Dr. Segura (vascular surgery) at who advises they feel the patient would benefit from outpatient ABIs but they do not see that there is any emergent surgical vascular intervention these to happen. They recommended antibiotics to treat cellulitis. Given that the patient has leukocytosis, elevated inflammatory markers, with significant cellulitis on clinical exam, I feel she would benefit from admission for IV antibiotics, especially given her arterial occlusion and PEs are also requiring anticoagulation. Family is very adamant that they would not want transferred to higher level of care, as they want the patient to stay here for evaluation and management. They state that if she got worse with any IV antibiotics here, they would just want to take her home on hospice. They state that they do not want any transfer for her intervention even if it is not something that we can manage here, as the patient already has trouble getting around at home. I discussed with them that if she were transferred to higher level of care with vascular surgery or a surgeon who felt comfortable with amputating her toe should it be determined that is appropriate and necessary, then they would likely get good source control and she would likely clinically improve, so I don't feel currently she is a candidate for hospice. I advised transfer would give her the best chance at clinical improvement if she had early surgical intervention is appropriate. They stated they understand, however they would not want to be transferred tonight under any circumstance. They understand that her foot may worsen, and worsening foot infection could also lead to bloodstream infection and even . They state that she is a DNR/DNI and if she does worsen on antibiotics, they would like for us to set her up with home hospice and send her home with a Lainez catheter so that they can easily care for her at home. They state they have tried to heal her toes in the past at home with conservative interventions, and they are just worried that it would be quite enough this time which is why they sought out evaluation. Given that they were adamant against transfer, I had discussions with Dr. Carpio with podiatry, Dr. Rangel with cardiology given her vascular issues, and Pamela NAM with hospitalist service. Everyone is in agreement that the patient will be admitted to the hospital here on IV antibiotics and anticoagulation to see if she clinically improves at family's request. She was admitted in stable condition. Critical Care Critical Care Time Critical Care Time: Yes Attestation: On 01/31/25, the high probability of a clinically significant, sudden or life threatening deterioration of the following system(s) required my full and direct attention, intervention and personal management. The time I documented below is in addition to time spent performing reported procedures but includes the following listed in this critical care notation. Total Time Total Critical Care Time: 75
[2025-01-31 16:05] LABS: Lactate Venous 2.1 mmol/L (0.4-2.0); VBG Base Excess 2.6 mmol/L (-2.4-2.3); VBG Oxygen Saturation 98.8 % (50-70); VBG PH 7.49 mmol/L (7.31-7.41); VBG PO2 114.7 mmol/L (28-40)
[2025-01-31 16:06] LABS: Basophils # 0.1 K/mm3 (0-0.2); Basophils % 0.4 % (0.1-2.0); Eosinophils # 0.3 Kmm3 (0.0-0.4); Eosinophils % 1.5 % (0.1-12.0); Hematocrit 37.4 % (37.0-47.0); Hemoglobin 12.7 g/dL (12.2-16.2); Immature Granulocytes % 0.5 %; Lymphocytes # 3.3 K/mm3 (0.7-4.5); Mean Corpuscular Hemoglobin 29.9 pg (27.0-31.2); Mean Platelet Volume 8.7 fl (7.4-10.4); Monocytes # 1.2 K/mm3 (0.1-1.0); Monocytes % 6.5 % (1.7-9.3); Neutrophils # 13.3 K/mm3 (1.8-7.8); Neutrophils % 73.1 % (37.0-80.0); Nucleated Red Blood Cells # 0 10^3/uL; Nucleated Red Blood Cells % 0 %; Platelet Count 307 K/mm3 (142-424); Red Blood Count 4.25 M/mm3 (4.20-5.40); Red Cell Distribution Width 12.5 % (11.5-17.5); White Blood Count 18.2 K/mm3 (4.8-10.8)
[2025-01-31 16:17] LABS: Alanine Aminotransferase 37 U/L (12-78); Albumin Level 3.4 g/dl (3.5-5.0); Albumin/Globulin Ratio 0.9 (1.1-1.8); Alkaline Phosphatase 82 U/L (38-126); Anion Gap 6.8 mEq/L (5-15); Aspartate Amino Transferase 39 U/L (14-36); Bilirubin,Total 0.4 mg/dl (0.2-1.3); Blood Urea Nitrogen 13 mg/dl (7-17); Calcium 9.1 mg/dl (8.4-10.2); Carbon Dioxide 28 mmol/L (22.0-30.0); Chloride 101 mmol/L (98-107); Creatinine Clearance Estimated 72 mL/min (50-200); Estimated Glomerular Filt Rate 122 ml/min (>60); GFR (African American) 148 ML/MIN (>60); Globulin 3.7 g/dL (1.3-3.2); Glucose 316 mg/dl (74-100); Potassium 3.8 mmoL/L (3.5-5.1); Sodium 132 mmol/L (136-145); Total Protein,Serum 7.1 g/dl (6.3-8.2)
[2025-01-31 16:18] LABS: Magnesium 1.7 mg/dl (1.6-2.3); Phosphorous 2.5 mg/dl (2.5-4.5)
[2025-01-31 16:23] LABS: C-Reactive Protein 67.8 mg/L (0-4)
[2025-01-31 16:30] LABS: NT Pro Brain Natriuretic Pep. 522 pg/mL (0-125); Troponin I 0.02 ng/ml (0.00-0.034)
[2025-01-31 16:34] LABS: Microscopic, Urine URINE MICROSCOPIC (MICROSCOPIC)
[2025-01-31 16:34] LABS: T4 (Thyroxine) 9.1 ug/dl (5.53-11.0)
[2025-01-31 16:38] LABS: Appearance,Urine CLEAR (Clear); Bilirubin,Urine Negative (Negative); Blood, Urine TRACE-I (Negative); Color,Urine YELLOW (Yellow); Glucose,Urine (UA) 1+ (Negative); Ketones,Urine Negative (Negative); Leukocyte Esterase,Urine Negative (Negative); Nitrate,Urine Negative (Negative); PH,Urine 5.5 (5.0-8.5); Protein,Urine Negative (Negative); Urobilinogen,Urine 0.2 EU/dl (0.2)
[2025-01-31] MEDS: CEFEPIME HCL 2 GM in 0.9 % SODIUM CHLORIDE 100 ML IV (16:38)
[2025-01-31 16:40] LABS: Activated Partial Thrombo Time 25.2 seconds (22.8-30.6); INR 1.03 (0.9-1.1); Prothrombin Time 11.4 seconds (10.1-12.5)
[2025-01-31 16:40] LABS: Erythrocyte Sedimentation Rate 58 mm/hr (0-30)
[2025-01-31 16:48] LABS: D-Dimer 1.25 ug/mL (0.0-0.5)
[2025-01-31 16:48] LABS: Thyroid Stimulating Hormone 0.69 uIU/mL (0.465-4.68)
--- NOTE | 2025-01-31 16:51 | CT_ITS ---
PROCEDURE INFORMATION: Exam: CTA Chest With Contrast Exam date and time: 01/31/2025 5:16 PM Age: 69 years old Clinical indication: Abnormal findings; Abnormal diagnostic tests; Elevated d-dimer; Shortness of breath; Additional info: SOA, elevated d-dimer TECHNIQUE: Imaging protocol: Computed tomographic angiography of the chest with contrast. Exam focused on the arteries. 3D rendering (Not supervised by radiologist): MIP and/or 3D reconstructed images were created by the technologist. Total images: [id number] Radiation optimization: All CT scans at this facility use at least one of these dose optimization techniques: automated exposure control; mA and/or kV adjustment per patient size (includes targeted exams where dose is matched to clinical indication); or iterative reconstruction. Contrast material: ISOVUE 370; Contrast volume: 70 ml; Contrast route: INTRAVENOUS (IV); COMPARISON: CR XR CHEST PORTABLE 01/31/2025 3:31 PM FINDINGS: Pulmonary arteries: Filling defect is noted within the subsegmental pulmonary artery to the left lower lobe (series 1001, image 84). Aorta: Tortuosity of the thoracic aorta. Other arteries: Mild atherosclerotic disease. Thyroid: Multiple calcifications noted throughout the thyroid with a heterogeneous appearance. Further evaluation with thyroid ultrasound is recommended. Lungs: Filling defect present within the right middle lobe (series 1001, image 64). Atelectatic changes noted within both lung bases. 1.2 cm granulomatous density noted within the lateral aspect of the right lung base. Atelectatic changes noted within both lung bases. Pleural spaces: No evidence of pneumothorax. Heart: No evidence of right heart strain. Heart demonstrates mild diffuse enlargement. Coronary arteries: There is mild atherosclerotic calcification of the coronary arteries. Lymph nodes: Unremarkable. No enlarged lymph nodes. Bones/joints: The thoracic spine demonstrates moderate degenerative changes at multiple levels. Soft tissues: Unremarkable. IMPRESSION: 1. Pulmonary emboli within the subsegmental artery to the left lower lobe and right middle lobe. 2. No evidence of right heart strain. 3. Atelectatic changes noted within both lung bases. 4. Mild cardiomegaly. 5. Atelectatic changes noted within both lung bases. 6. 1.2 cm granulomatous density noted within the lateral aspect of the right lung base. 7. Multiple calcifications noted throughout the thyroid with a heterogeneous appearance. Further evaluation with thyroid ultrasound is recommended.
[2025-01-31] MEDS: FUROSEMIDE 40MG/4ML VIAL 80 MG IV (16:53)
[2025-01-31 16:57] LABS: Bacteria,Urine 1+ /lpf; Squamous Epithelial Cell,Urine Occasional #/hpf (0-5); WBC,Urine Occasional #/hpf (0-3)
--- NOTE | 2025-01-31 16:57 | CT_ITS ---
PROCEDURE INFORMATION: Exam: CTA Abdominal Aorta and Bilateral Lower Extremities (Run-off) With Contrast Exam date and time: 01/31/2025 5:21 PM Age: 69 years old Clinical indication: Abdominal pain and foot pain; Generalized; Right; Additional info: Ble pain, wound R foot TECHNIQUE: Imaging protocol: Computed tomographic angiography of the of the abdominal aorta, pelvis and bilateral lower extremities with contrast. 3D rendering (Not supervised by radiologist): MIP and/or 3D reconstructed images were created by the technologist. Radiation optimization: All CT scans at this facility use at least one of these dose optimization techniques: automated exposure control; mA and/or kV adjustment per patient size (includes targeted exams where dose is matched to clinical indication); or iterative reconstruction. Contrast material: ISOVUE 370; Contrast volume: 100 ml; Contrast route: INTRAVENOUS (IV); COMPARISON: CT ANGIO CHEST PE PROTOCOL 01/31/2025 5:16 PM FINDINGS: Tubes, catheters and devices: Lainez catheter. Aorta: No aortic aneurysm. No aortic dissection. 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 Renal arteries: No occlusion or significant stenosis. Right iliac arteries: No occlusion or significant stenosis. Right femoral/popliteal arteries: No occlusion or significant stenosis. Right infrapopliteal arteries: The right dorsalis pedis artery is not well seen and could be occluded. Left iliac arteries: No occlusion or significant stenosis. Left femoral/popliteal arteries: No occlusion or significant stenosis. Left infrapopliteal arteries: The left dorsalis pedis artery is not seen and could be occluded. There is tiny filling defects within the mid left posterior tibial artery which could indicate tiny blood clots. Lungs: Atelectasis in the lung bases. Liver: No mass. Gallbladder and biliary ducts: Unremarkable. No calcified stones. No ductal dilation. Pancreas: Unremarkable. No mass. No ductal dilation. Spleen: Normal. No splenomegaly. Adrenal glands: Left adrenal adenoma. Kidneys and ureters: Normal. No mass. Stomach and bowel: Unremarkable. No obstruction. No mucosal thickening. Appendix: No evidence of appendicitis. Urinary bladder: Unremarkable. No mass. Reproductive: Unremarkable as visualized. Intraperitoneal space: Unremarkable. No free air. No significant fluid collection. Lymph nodes: Right groin enlarged lymph nodes. Bones/joints: No acute fracture. No dislocation. Soft tissues: Soft tissue swelling and skin thickening involving the inferior pannus reflecting cellulitis. Soft tissue swelling involving the right calf but no soft tissue gas or abscess. Soft tissue swelling involving the calf on the left skin thickening. No abscess or soft tissue gas. IMPRESSION: 1. 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 2. The right dorsalis pedis artery is not well seen and could be occluded or this could be due to slow flow. 3. The left dorsalis pedis artery is not seen and could be occluded or this could be due to slow flow 4. There is tiny filling defects within the mid left posterior tibial artery which could indicate tiny blood clots.
[2025-01-31 17:04] LABS: Hemoglobin A1C 11.9 % (4.0-6.0)
[2025-01-31 17:22] LABS: HIV Combo NEGATIVE (Negative)
[2025-01-31] MEDS: 0.9 % SODIUM CHLORIDE 50 ML VIAL 100 ML IV (17:22)
[2025-01-31] MEDS: SODIUM CHLORIDE 0.9% 10ML SYR (RAD ONLY) 10 ML IV (17:22)
[2025-01-31] MEDS: IOPAMIDOL-370 (76%);100ML BOTTLE 180 ML IV (17:22)
[2025-01-31 17:30] LABS: Hepatitis C Ab Qual. W/ RFX NEGATIVE (Negative)
--- NOTE | 2025-01-31 17:30 | PC.NURSE ---
pt back from RAD
[2025-01-31] MEDS: VANCOMYCIN HCL 2,250 MG in 0.9 % SODIUM CHLORIDE 250 ML 125 MG IV (17:52)
--- NOTE | 2025-01-31 17:57 | PC.NURSE ---
2000ml of urine out
[2025-01-31 19:13] LABS: Troponin I 0.04 ng/ml (0.00-0.034)
--- NOTE | 2025-01-31 19:15 | PC.NURSE ---
Report from Nayeli RN, pt has right pinky toe infection and bilateral PE's. Pt reported increased swelling in upper extremities with intermittent episodes of dyspnea. PCP gave her lasix, pt feels she is not getting rid of fluid as she should on medication. Lainez in place at this time. Pt also has a stage 2 DTI from her wheelchair. Left hip area is blanchable, warm and open to air. Plan to start Heparin and ABX.
[2025-01-31 19:47] LABS: PTT Heparin (inpatient only) 24.9 Seconds (50-75)
--- NOTE | 2025-01-31 19:50 | PC.NURSE ---
Called [facility] to see about transferring this pt. sent the call to
[2025-01-31 20:05] LABS: Reflex Lactic Add Lactic Reflex
[2025-01-31] MEDS: HEPARIN SODIUM 5,000 UNIT/ML VIAL 3500 UNIT IV (20:07)
[2025-01-31] MEDS: HEPARIN SODIUM,PORCINE/D5W 500 ML 19.994 UNIT IV (20:07)
[2025-01-31 20:17] LABS: Lactic Acid Follow Up (RFLX 1) 1.5 mmol/L (0.7-2.1)
[2025-01-31] MEDS: CLINDAMYCIN PHOSPHATE/D5W 900 MG/50 ML PIGGYBACK 100 MG IV (20:35)
[2025-01-31 21:50] LABS: Troponin I 0.07 ng/ml (0.00-0.034)
--- NOTE | 2025-01-31 21:50 | PC.NURSE ---
Pamela hospitalist at bedside speaking with pt about admission to our hospital. Family refuses to be transferred at this time, wants her to have abx and blood thinner here and see Dr Tirado/ Dr Rangel until family can make a decision together.
--- NOTE | 2025-01-31 22:13 | P.HP_ITS ---
<Statement entered by Bob Donald MD - 02/04/25 22:25> Evaluated by the patient and agree with plan of care as outlined by the CLE[employer] POLICY ANALYST. History of Present Illness *Admission Date: 01/31/25 *Reason for visit:: Shortness of breath and bilateral lower extremity edema *History of present illness: This is a 69-year-old female with past medical history of CAD, hypertension, hyperlipidemia, T2DM, prior CVA who presents emergency department today with complaints of shortness of breath and bilateral lower extremity edema. She also reports a wound on her fifth digit of her right foot. She reports that she has had swelling for some time but it has been getting worse over the last 3 days. She was put on Lasix by her primary care provider. Despite taking the Lasix she has had increased shortness of breath and swelling. With regards to the wound she states that she did not notice the wound until today. Denies any fever. Denies any chest pain. Emergency department workup notable for cellulitis versus gangrene to the right lower extremity. CTA chest abdomen pelvis obtained and notable for pulmonary emboli within the subsegmental artery to the left lower lobe and right middle lobe. Also notable is high-grade stenosis at the celiac trunk and SMA. Right dorsalis pedis artery not well-seen and could be occluded as well as the left dorsalis pedis artery. Also notable to have mid posterior tibial artery filling defect which could represent tiny blood clots Laboratory evaluation notable for leukocytosis with a white count of 18, elevated ESR of 58, glucose of 316, A1c of 11.9, troponin of 0.02 with uptrend to 0.04, CRP of 67 Dr Carpio was consulted with podiatry and recommended transfer initially. Transfer attempted by ED provider at . states the patient likely can go home with treatment for cellulitis but given patient's vascular disease and pulmonary emboli it was felt that she would benefit from hospitalization. After multiple discussions with the ED provider and family, family wishes to be admitted here or discharged home. Does not want transfer to any other facility. States that they are happy with the care they are receiving here. ER provider did inform them that vascular surgery was probably the best option for salvage care of the foot. They are understanding that the best course of treatment would likely be vascular surgery but would like to be admitted here for IV antibiotics and blood thinners until they can have a more lengthy family discussion on goals of care. Patient is in agreement to this. Dr. Rangel was consulted at the time of decision to stay here at this facility and will be happy to consult on Sunday for consult for possible revascularization. Dr. Carpio also notified of patient's admission here to this hospital. [facility] Disclaimer: The information contained in this section may have been updated after the patient was seen, as this information can be updated by other users. Medical History Wound of left lower extremity HLD (hyperlipidemia) HHD (hypertensive heart disease) CAD (coronary artery disease) Obesity Social History Smoking Status: Never smoker alcohol intake: never substance use type: denies use current occupational status: other Travel in the last 8 weeks?: Inside the [place] household members: spouse and family housing: house current occupation: farm/ house work current occupational exposures/hazards: No Have you lived/traveled outside [place] in past 30 days?: No Contact w/someone who lives/traveled outside US past 30 days?: No Exposure to someone with infectious disease in past 14 days?: No Do you have a fever (greater than 100.4 F or 38 C)?: No Have you tested positive for COVID-19?: No Exposed to someone with COVID-19 in past 14 days?: No Do you have a sore throat?: No Do you have a cough?: No Do you have any weakness?: No Do you have any diarrhea?: No Are you experiencing any unusual bleeding?: No Do you have any muscle aches/pain?: No Do you have any abdominal pain?: No Are you experiencing loss of taste or smell?: No Other Medical History Have you received the Flu Vaccine for this season: No Have you received the Pneumonia Vaccine: No Review of Systems Review of Systems Review of systems:: pertinent systems reviewed and negative unless documented below Review of systems (narrative): Negative except for HPI Meds Home Medications and Allergies Home Medications ?Medication ?Instructions ?Recorded ?Confirmed ?Type metformin 500 mg tablet,extended See Rx Instructions . Route 10/28/22 10/28/22 History release 24 hr .COMPLEX Diabetes mupirocin 2 % topical ointment 1 applic topical BID #2 2 grams 01/19/23 Rx aspirin 325 mg tablet 325 mg PO DAILY #30 tabs Rx atorvastatin 10 mg tablet (Lipitor) 10 mg PO HS #30 ta bs 01/29/23 Rx bisoprolol fumarate 5 mg tablet 5 mg PO DAILY #30 tabs 01/29/23 Rx cephalexin 500 mg capsule 500 mg PO TID #30 caps 01/29 Rx clopidogrel 75 mg tablet (Plavix) 75 mg PO DAILY #30 t abs 01/29/23 Rx lisinopril 5 mg tablet 5 mg PO DAILY #30 tabs 01/29 Rx minocycline 100 mg capsule 100 mg PO BID #20 caps 01/12 09/04 Rx glipizide 5 mg tablet, extended 5 mg PO QAM #30 tabs 0 02/02/23 Rx release 24 hr (Glucotrol XL) New Prescriptions to Start Prescriptions: Allergies Allergy/AdvReac Type Severity Reaction Status Date / Time No Known Allergies Allergy Verified 02/21/19 09:16 Exam Data for Last 24 hours Vital signs and Labs for Last 24 Hours: Temp Pulse Resp BP Pulse Ox O2 Del Method 98.9 F 80 16 160/67 H 94 L Room Air 01/31/25 15:14 01/31/25 21:00 01/31/25 21:30 01/31/25 21:30 01/31/25 21:30 01/31/25 21:30 Laboratory Results - last 24 hr 01/31/25 15:47: WBC 18.2 H, RBC 4.25, Hgb 12.7, Hct 37.4, MCV 88.0, MCH 29.9, MCHC 34.0, RDW 12.5, Plt Count 307, MPV 8.7, Neut % (Auto) 73.1, Lymph % (Auto) 18.0, [place] % (Auto) 6.5, Eos % (Auto) 1.5, Baso % (Auto) 0.4, Neut # (Auto) 13.3 H, Lymph # (Auto) 3.3, [place] # (Auto) 1.2 H, Eos # (Auto) 0.3, Baso # (Auto) 0.1, ESR 58 H, Sodium 132 L, Potassium 3.8, Chloride 101, Carbon Dioxide 28, Anion Gap 6.8, BUN 13, Creatinine 0.50 L, Estimated Creat Clear 72, Estimated GFR 122, Est GFR ( Amer) 148, Glucose 316 H, Hemoglobin A1c 11.9 H, Calcium 9.1, Phosphorus 2.5, Magnesium 1.7, Total Bilirubin 0.4, AST 39 H, ALT 37, Alkaline Phosphatase 82, Troponin I 0.02, C-Reactive Protein 67.8 H, NT-Pro-B Natriuret Pep 522 H, Total Protein 7.1, Albumin 3.4 L, Globulin 3.7 H, Albumin/Globulin Ratio 0.9 L, TSH 0.69, Thyroxine (T4) 9.1, HCV Ab JOSEPH w/Rflx PCR Qn Negative, HIV Ag/Ab Combo Qual Negative 01/31/25 15:59: VBG pH 7.49 H, VBG pCO2 35.0, VBG pO2 114.7 H, VBG HCO3 26.0, VBG Total CO2 27.0, VBG O2 Saturation 98.8 H, VBG Base Excess 2.6 H, VBG Lactic Acid 2.1 H 01/31/25 16:20: PT 11.4, INR 1.03, APTT 25.2, D-Dimer 1.25 H 01/31/25 16:21: Urine Color Yellow, Urine Appearance Clear, Urine pH 5.5, Ur Specific [place] 1.020, Urine Protein Negative, Urine Glucose (UA) 1+, Urine Ketones Negative, Urine Blood Trace-i, Urine Nitrate Negative, Urine Bilirubin Negative, Urine Urobilinogen 0.2, Ur Leukocyte Esterase Negative, Urine RBC 3-5, Urine WBC Occasional, Ur Squamous Epith Cells Occasional, Urine Bacteria 1+ 01/31/25 16:25: APTT 24.9 L 01/31/25 18:27: Troponin I 0.04 H 01/31/25 19:37: Lactate 1.5 01/31/25 21:21: Troponin I 0.07 H I & O for Last 24 hours: Intake & Output 01/28/25 01/29/25 01/30/25 01/31/25 23:59 23:59 23:59 23:59 Output Total 5600 / 5600 Balance -5600 / -5600 Weight 86.183 kg Microbiology Reports for the Last 24 Hours: Microbiology 01/31/25 17:34 Foot,Right Gram Stain - Final Constitutional Constitutional: no acute distress *Routine HEENT Exam Head: Present normocephalic Eye: Present EOMI and PERRL ENT: Present mucous membranes moist *Routine Neck Exam Neck: Present supple; Absent lymphadenopathy *Routine Respiratory Exam Respiratory: Present CTA bilaterally *Routine Cardiovascular Exam Cardiovascular: Present RRR *Routine Abdominal Exam Abdominal: Present soft and normoactive bowel sounds; Absent tenderness *Routine Rectal Exam Rectal:: deferred *Routine Genitalia Exam Genitalia:: deferred *Routine Extremities Exam Extremities: Absent cyanosis, clubbing or edema *Routine Skin Exam Skin: Present erythema Comments: Right lower extremity with warmth and erythema up to mid [place]. Right fifth digit dusky in color with separation between the toes. Sluggish pulses noted *Routine Neurological Exam Neurological: Present alert and oriented X3 Assessment and Plan *Assessment and plan (1) Pulmonary emboli: Status: Acute Category: Medical Code(s): I26.99 - Other pulmonary embolism without acute cor pulmonale (2) Cellulitis: Status: Acute Category: Medical Code(s): L03.90 - Cellulitis, unspecified (3) Gangrene of right foot: Status: Acute Category: Medical Code(s): I96 - Gangrene, not elsewhere classified (4) Acute non-ST elevation myocardial infarction (NSTEMI): Status: Acute Category: Medical Code(s): I21.4 - Non-ST elevation (NSTEMI) myocardial infarction (5) Leukocytosis: Status: Acute Qualifiers: Leukocytosis type: unspecified Qualified Code(s): D72.829 - Elevated white blood cell count, unspecified Category: Medical Code(s): D72.829 - Elevated white blood cell count, unspecified (6) Obesity: Status: Chronic Qualifiers: Obesity type: due to excess calories Obesity classification: adult class 1 (BMI 30 - 34.9) Serious obesity comorbidity presence: with serious comorbidity Body mass index: BMI 34.0-34.9 Qualified Code(s): E66.09 - Other obesity due to excess calories; Z68.34 - Body mass index (BMI) 34.0-34.9, adult Category: Medical Code(s): E66.9 - Obesity, unspecified (7) Celiac artery stenosis: Status: Acute Category: Medical Code(s): I77.4 - Celiac artery compression syndrome (8) Diabetes mellitus type 2 in obese: Status: Chronic Category: Medical Code(s): E11.69 - Type 2 diabetes mellitus with other specified complication; E66.9 - Obesity, unspecified (9) HLD (hyperlipidemia): Status: Chronic Qualifiers: Hyperlipidemia type: unspecified Qualified Code(s): E78.5 - Hyperlipidemia, unspecified Category: Medical Code(s): E78.5 - Hyperlipidemia, unspecified (10) HHD (hypertensive heart disease): Status: Chronic Qualifiers: Heart failure presence: without heart failure Qualified Code(s): I11.9 - Hypertensive heart disease without heart failure Category: Medical Code(s): I11.9 - Hypertensive heart disease without heart failure (11) CAD (coronary artery disease): Status: Chronic Category: Medical Code(s): I25.10 - Atherosclerotic heart disease of [place] coronary artery without angina pectoris Plan #Pulmonary emboli CT imaging with subsegmental artery to the left lower lobe and right middle lobe. Troponin elevated at 0.04 with an uptrend to 0.07. In no distress at this time. Oxygenating well on room air. Heart rate normal. Continue heparin infusion #Gangrene of the right lower extremity #Cellulitis #Peripheral artery disease Consult to Dr. Tirado with podiatry and Dr. Sloan with cardiology on Sunday morning Continue heparin infusion Continue antibiotic therapy with vancomycin and cefepime and clindamycin Every 4 hour neurovascular checks, reasonable to expect poor flow via Doppler given CT finding ESR and CRP elevated #Celiac artery stenosis Noted. Denies abdominal pain. Lactic acid normal. Continue heparin drip #T2DM Uncontrolled diabetes with a hemoglobin A1c of 11.6 Continue sliding scale insulin Hold oral antidiabetics at this time #Leukocytosis Likely secondary to clot burden and cellulitis Does not meet sepsis criteria. Continue antibiotic therapy #HLD #HTN Continue home medications #NSTEMI Likely demand. Denies Chest pain. EKG without ischemia.
--- NOTE | 2025-01-31 22:53 | PC.NURSE ---
Patient arrived to floor via stretcher from ED at 22:48.
[2025-01-31 23:02] LABS: PTT Heparin (inpatient only) 36.2 Seconds (50-75)
--- NOTE | 2025-01-31 23:39 | PC.WOUNDNOTE ---
Right foot Left hip
[2025-01-31 23:50] LABS: POC Glucose,Bedside 323 (70-110)
[2025-01-31] MEDS: humaLOG 100 UNITS/ML 10ML VIAL (SSI) SUBCUT (23:53)
[2025-02-01] VITALS (45 sets, daily range): BP systolic 85–173; BP diastolic 36–87; PULSE 70–127; RESP 14–36; TEMP 36.4–37.9; O2SAT 92–99; BMI 51.0; BMI 49.4
[2025-02-01] MEDS: MAGNESIUM SULFATE IN WATER 2 GM/50 ML PIGGYBACK IV ×2 (00:36→01:18)
[2025-02-01 01:53] LABS: PTT Heparin (inpatient only) 31.5 Seconds (50-75)
[2025-02-01 02:02] LABS: Troponin I 0.07 ng/ml (0.00-0.034)
[2025-02-01] MEDS: HEPARIN SODIUM 5,000 UNIT/ML VIAL 4000 UNIT IV (02:11)
[2025-02-01] MEDS: HEPARIN SODIUM,PORCINE/D5W 500 ML 26 UNIT IV (02:11)
[2025-02-01] MEDS: VANCOMYCIN/WATER FOR INJ (PEG) 1.25 GM/250 ML PIGGYBACK IV (04:34)
--- NOTE | 2025-02-01 04:50 | PC.NURSE ---
Pt is A&O x 4. Pt is on RA. Pt has a aldrich catheter inplace, that has had an adequate amount of output. Pt is on a heparin drip that is being dosed by pharmacy based off of the APTT, currently infusing at 26 ml/hr. Pt does have gangrene right toe and wound on left hip, see nursing wound note. Pt signed DNR/DNI form. Pt resting in bed, call light is within reach. No concerns expressed at this time. Plan of care ongoing.
[2025-02-01] MEDS: CLINDAMYCIN PHOSPHATE/D5W 900 MG/50 ML PIGGYBACK 100 MG IV ×3 (05:18→21:30)
[2025-02-01] MEDS: humaLOG 100 UNITS/ML 10ML VIAL (SSI) SUBCUT ×3 (05:19→16:53)
[2025-02-01 05:29] LABS: POC Glucose,Bedside 355 (70-110)
[2025-02-01 06:20] LABS: Basophils # 0.1 K/mm3 (0-0.2); Basophils % 0.5 % (0.1-2.0); Eosinophils # 0.1 Kmm3 (0.0-0.4); Eosinophils % 0.8 % (0.1-12.0); Hematocrit 37.6 % (37.0-47.0); Hemoglobin 12.5 g/dL (12.2-16.2); Immature Granulocytes # 0.07 10^3uL; Immature Granulocytes % 0.4 %; Lymphocytes # 4.1 K/mm3 (0.7-4.5); Lymphocytes % 23.7 % (10-50); Mean Corpuscular HGB Conc 33.2 g/dL (31.8-35.4); Mean Corpuscular Hemoglobin 29.2 pg (27.0-31.2); Mean Corpuscular Volume 87.9 fl (81-99); Mean Platelet Volume 8.7 fl (7.4-10.4); Monocytes # 1.3 K/mm3 (0.1-1.0); Monocytes % 7.2 % (1.7-9.3); Neutrophils # 11.7 K/mm3 (1.8-7.8); Neutrophils % 67.4 % (37.0-80.0); Nucleated Red Blood Cells # 0 10^3/uL; Nucleated Red Blood Cells % 0 %; Platelet Count 307 K/mm3 (142-424); Red Blood Count 4.28 M/mm3 (4.20-5.40); Red Cell Distribution Width 12.6 % (11.5-17.5); Red Cell Distribution Width-SD 40.3 fL; White Blood Count 17.4 K/mm3 (4.8-10.8)
[2025-02-01 06:27] LABS: Chloride 105 mmol/L (98-107); Potassium 3.4 mmoL/L (3.5-5.1); Sodium 134 mmol/L (136-145)
[2025-02-01 06:30] LABS: Anion Gap 3.4 mEq/L (5-15); Blood Urea Nitrogen 12 mg/dl (7-17); Carbon Dioxide 29 mmol/L (22.0-30.0); Cholesterol 157 mg/dl (140-200); Creatinine Clearance Estimated 32 mL/min (50-200); Estimated Glomerular Filt Rate 122 ml/min (>60); GFR (African American) 148 ML/MIN (>60); Glucose 326 mg/dl (74-100); Triglycerides 161 mg/dl (30-150); VLDL Cholesterol 32 mg/dL (0-40)
[2025-02-01 06:31] LABS: Calcium 8.3 mg/dl (8.4-10.2); Chol/HDL Ratio 5.2 (1-3.5); HDL Cholesterol 30 mg/dl (40-60); Magnesium 2.4 mg/dl (1.6-2.3)
[2025-02-01 06:41] LABS: Direct LDL Cholesterol 83.76 mg/dL (100-129)
[2025-02-01 07:13] LABS: PTT Heparin (inpatient only) 46.7 Seconds (50-75)
[2025-02-01] MEDS: HEPARIN SODIUM 5,000 UNIT/ML VIAL 3000 UNIT IV (07:57)
[2025-02-01] MEDS: HEPARIN SODIUM,PORCINE/D5W 500 ML 30 UNIT IV (07:58)
--- NOTE | 2025-02-01 08:56 | EXP.PHA.CONS ---
Pharmacy Consult Date: 02/01/25 Time: 08:57 Referring provider: DR. PEREIRA Reason for Consult:: VANCOMYCIN DOSING Allergies Allergy/AdvReac Type Severity Reaction Status Date / Time No Known Allergies Allergy Verified 02/21/19 09:16 Home Medications ?Medication ?Instructions ?Recorded ?Confirmed ?Type metformin 500 mg tablet,extended 500 mg PO BID Diabetes 10/28/22 01/31/25 History release 24 hr bisoprolol fumarate 5 mg tablet 5 mg PO DAILY #30 tabs 01/29/23 01/31/25 Rx lisinopril 5 mg tablet 5 mg PO DAILY #30 tabs 01/29/23 01/31/25 Rx cephalexin 500 mg capsule 500 mg PO BID 01/31/25 01/31/25 History New Prescriptions to Start Prescriptions: Height: 1.45 m Weight: 107.218 kg Laboratory Results:: Laboratory Results - last 24 hr 01/31/25 15:47: WBC 18.2 H, RBC 4.25, Hgb 12.7, Hct 37.4, MCV 88.0, MCH 29.9, MCHC 34.0, RDW 12.5, Plt Count 307, MPV 8.7, Neut % (Auto) 73.1, Lymph % (Auto) 18.0, [place] % (Auto) 6.5, Eos % (Auto) 1.5, Baso % (Auto) 0.4, Neut # (Auto) 13.3 H, Lymph # (Auto) 3.3, [place] # (Auto) 1.2 H, Eos # (Auto) 0.3, Baso # (Auto) 0.1, ESR 58 H, Sodium 132 L, Potassium 3.8, Chloride 101, Carbon Dioxide 28, Anion Gap 6.8, BUN 13, Creatinine 0.50 L, Estimated Creat Clear 72, Estimated GFR 122, Est GFR ( Amer) 148, Glucose 316 H, Hemoglobin A1c 11.9 H, Calcium 9.1, Phosphorus 2.5, Magnesium 1.7, Total Bilirubin 0.4, AST 39 H, ALT 37, Alkaline Phosphatase 82, Troponin I 0.02, C-Reactive Protein 67.8 H, NT-Pro-B Natriuret Pep 522 H, Total Protein 7.1, Albumin 3.4 L, Globulin 3.7 H, Albumin/Globulin Ratio 0.9 L, TSH 0.69, Thyroxine (T4) 9.1, HCV Ab JOSEPH w/Rflx PCR Qn Negative, HIV Ag/Ab Combo Qual Negative 01/31/25 15:59: VBG pH 7.49 H, VBG pCO2 35.0, VBG pO2 114.7 H, VBG HCO3 26.0, VBG Total CO2 27.0, VBG O2 Saturation 98.8 H, VBG Base Excess 2.6 H, VBG Lactic Acid 2.1 H 01/31/25 16:20: PT 11.4, INR 1.03, APTT 25.2, D-Dimer 1.25 H 01/31/25 16:21: Urine Color Yellow, Urine Appearance Clear, Urine pH 5.5, Ur Specific [place] 1.020, Urine Protein Negative, Urine Glucose (UA) 1+, Urine Ketones Negative, Urine Blood Trace-i, Urine Nitrate Negative, Urine Bilirubin Negative, Urine Urobilinogen 0.2, Ur Leukocyte Esterase Negative, Urine RBC 3-5, Urine WBC Occasional, Ur Squamous Epith Cells Occasional, Urine Bacteria 1+ 01/31/25 16:25: APTT 24.9 L 01/31/25 18:27: Troponin I 0.04 H 01/31/25 19:37: Lactate 1.5 01/31/25 21:21: Troponin I 0.07 H 01/31/25 22:20: APTT 36.2 L 01/31/25 23:42: POC Glucose 323 H* 02/01/25 01:26: APTT 31.5 L, Troponin I 0.07 H 02/01/25 05:17: POC Glucose 355 H* 02/01/25 06:10: WBC 17.4 H, RBC 4.28, Hgb 12.5, Hct 37.6, MCV 87.9, MCH 29.2, MCHC 33.2, RDW 12.6, Plt Count 307, MPV 8.7, Neut % (Auto) 67.4, Lymph % (Auto) 23.7, [place] % (Auto) 7.2, Eos % (Auto) 0.8, Baso % (Auto) 0.5, Neut # (Auto) 11.7 H, Lymph # (Auto) 4.1, [place] # (Auto) 1.3 H, Eos # (Auto) 0.1, Baso # (Auto) 0.1, APTT 46.7 L, Sodium 134 L, Potassium 3.4 L, Chloride 105, Carbon Dioxide 29, Anion Gap 3.4 L, BUN 12, Creatinine 0.50 L, Estimated Creat Clear 32, Estimated GFR 122, Est GFR ( Amer) 148, Glucose 326 H, Calcium 8.3 L, Magnesium 2.4 H D, Triglycerides 161 H, Cholesterol 157, LDL Cholesterol Direct 83.76 L, VLDL Cholesterol 32, HDL Cholesterol 30 L, Cholesterol/HDL Ratio 5.2 H Medical History: Medical History (Updated 01/31/25 @ 19:11 by Usha Rajan DO) Wound of left lower extremity HLD (hyperlipidemia) HHD (hypertensive heart disease) CAD (coronary artery disease) Obesity Assessment and Plan Assessment and plan all Dx Assessment and Plan for all problems:: Pharmacokinetic dosing service Objective: Patient: Floor: Age: 69 yo Serum creatinine: 1 mg/dL Height: 57.1 Inches Weight (kg): 107 Assessment: IBW (kg): 43.30 Dosing wt(kg): 107 Estimated Creatinine clearance (ml/min): 36.3 CRCL method: Cockcroft and Gault using ibw(default). Drug selected: Vancomycin Loading dose (mg): 0 Vd (liters): 85.6 (factor used: 0.8 L/kg) Ang (hr-1): 0.035 Half life (hrs): 19.80 Recommended dose: 1750 mg Interval: 24 hrs Infusion time (hrs): 2.0 Predicted peak (mcg/mL): 34.7 Predicted trough (mcg/mL): 16.07 Total body weight is being used for vancomycin dosing. Recommendations: VANCOMYCIN 2250 MG GIVEN AT 1752 ON 01/31/25 AND VANCOMYCIN 1250 MG X1 AT 0434 ON 02/01/25. CALCULATED DOSE OF Vancomycin 1750 mg q 24 hrs with an expected Cpeak of 34.7 mcg/ml and an expected Ctrough of 16.07 mcg/ml. WILL HOLD DOSE UNTIL 0800 ON 02/02/25. CHECK LEVEL PRIOR TO DOSE ON 02/02/25. ----Toio only - ignore for aminoglycosides----- CLvanco= 3.00 L/hr AUC 0-24 /PAULA Data: PAULA 0.5 mcg/mL: AUC/PAULA: 1166.7 PAULA 1.0 mcg/mL: AUC/PAULA: 583.3 --------- PAULA 1.5 mcg/mL: AUC/PAULA: 388.9 PAULA 2.0 mcg/mL: AUC/PAULA: 291.7
--- NOTE | 2025-02-01 09:09 | HMH.PHAHEP ---
[facility] Heparin Dosing Demographic Data Admission date:: 01/31/25 Date: 02/01/25 Time: 09:09 Allergies Allergy/AdvReac Type Severity Reaction Status Date / Time No Known Allergies Allergy Verified 02/21/19 09:16 Height: 1.45 m Weight: 107.2 kg Indication Medication therapy:: Heparin Current Active Problems (Updated 01/31/25 @ 19:11 by Usha Rajan, DO) Blood clot in leg (Acute) Anasarca (Acute) Celiac artery stenosis (Acute) Pulmonary emboli (Acute) Cellulitis (Acute) Gangrene of right foot (Acute) Acute non-ST elevation myocardial infarction (NSTEMI) (Acute) Leukocytosis (Acute) Obesity (Chronic) Diabetes mellitus type 2 in obese (Chronic) HLD (hyperlipidemia) (Chronic) HHD (hypertensive heart disease) (Chronic) CAD (coronary artery disease) (Chronic) CVA?: No Bleeding problem?: No Kidney disease?: No NC?: Yes Additional History:: GANGRENE, PE, DVT Desired PTT range:: 50-75 seconds Labs Anticoagulation Lab Results:: 01/31/25 02/01/25 15:47 06:10 Hgb 12.7 12.5 Hct 37.4 37.6 Plt Count 307 307 Monitoring Dose Monitor 1: Date: 01/31/25 Time: 16:25 PTT Result:: 24.9 Infusion Rate:: HEPARIN DRIP STARTED AT 19.9 ML/HR WITH 3500 UNIT BOLUS Dose Monitor 2: Date: 02/01/25 Time: 22:20 PTT Result:: 31.36.2 Infusion Rate:: DRIP WAS CONTINUED AT 19.9 ML/HR Dose Monitor 3: Date: 02/01/25 Time: 01:26 PTT Result:: 31.5 Infusion Rate:: DRIP RATE INCREASED TO 26 ML/HR AND REBOLUSED WITH HEPARIN 4000 UNITS Dose Monitor 4: Date: 02/01/25 Time: 06:10 PTT Result:: 46.7 Infusion Rate:: HEPARIN DRIP INCREASED TO 30 ML/HR AND REBOLUSED WITH HEPARIN 3000 UNITS. Dose Monitor 5: Date: 02/01/25 Time: 10:17 PTT Result:: 50.2 Infusion Rate:: HEPARIN DRIP STOPPED AND LOVENOX 105 MG Q12H STARTED. Core Measures Is INR > or = 2 at discharge?: No Most Recent Labs:: Laboratory Results - last 24 hr 01/31/25 15:47: WBC 18.2 H, RBC 4.25, Hgb 12.7, Hct 37.4, MCV 88.0, MCH 29.9, MCHC 34.0, RDW 12.5, Plt Count 307, MPV 8.7, Neut % (Auto) 73.1, Lymph % (Auto) 18.0, [place] % (Auto) 6.5, Eos % (Auto) 1.5, Baso % (Auto) 0.4, Neut # (Auto) 13.3 H, Lymph # (Auto) 3.3, [place] # (Auto) 1.2 H, Eos # (Auto) 0.3, Baso # (Auto) 0.1, ESR 58 H, Sodium 132 L, Potassium 3.8, Chloride 101, Carbon Dioxide 28, Anion Gap 6.8, BUN 13, Creatinine 0.50 L, Estimated Creat Clear 72, Estimated GFR 122, Est GFR ( Amer) 148, Glucose 316 H, Hemoglobin A1c 11.9 H, Calcium 9.1, Phosphorus 2.5, Magnesium 1.7, Total Bilirubin 0.4, AST 39 H, ALT 37, Alkaline Phosphatase 82, Troponin I 0.02, C-Reactive Protein 67.8 H, NT-Pro-B Natriuret Pep 522 H, Total Protein 7.1, Albumin 3.4 L, Globulin 3.7 H, Albumin/Globulin Ratio 0.9 L, TSH 0.69, Thyroxine (T4) 9.1, HCV Ab JOSEPH w/Rflx PCR Qn Negative, HIV Ag/Ab Combo Qual Negative 01/31/25 15:59: VBG pH 7.49 H, VBG pCO2 35.0, VBG pO2 114.7 H, VBG HCO3 26.0, VBG Total CO2 27.0, VBG O2 Saturation 98.8 H, VBG Base Excess 2.6 H, VBG Lactic Acid 2.1 H 01/31/25 16:20: PT 11.4, INR 1.03, APTT 25.2, D-Dimer 1.25 H 01/31/25 16:21: Urine Color Yellow, Urine Appearance Clear, Urine pH 5.5, Ur Specific [place] 1.020, Urine Protein Negative, Urine Glucose (UA) 1+, Urine Ketones Negative, Urine Blood Trace-i, Urine Nitrate Negative, Urine Bilirubin Negative, Urine Urobilinogen 0.2, Ur Leukocyte Esterase Negative, Urine RBC 3-5, Urine WBC Occasional, Ur Squamous Epith Cells Occasional, Urine Bacteria 1+ 01/31/25 16:25: APTT 24.9 L 01/31/25 18:27: Troponin I 0.04 H 01/31/25 19:37: Lactate 1.5 01/31/25 21:21: Troponin I 0.07 H 01/31/25 22:20: APTT 36.2 L 01/31/25 23:42: POC Glucose 323 H* 02/01/25 01:26: APTT 31.5 L, Troponin I 0.07 H 02/01/25 05:17: POC Glucose 355 H* 02/01/25 06:10: WBC 17.4 H, RBC 4.28, Hgb 12.5, Hct 37.6, MCV 87.9, MCH 29.2, MCHC 33.2, RDW 12.6, Plt Count 307, MPV 8.7, Neut % (Auto) 67.4, Lymph % (Auto) 23.7, [place] % (Auto) 7.2, Eos % (Auto) 0.8, Baso % (Auto) 0.5, Neut # (Auto) 11.7 H, Lymph # (Auto) 4.1, [place] # (Auto) 1.3 H, Eos # (Auto) 0.1, Baso # (Auto) 0.1, APTT 46.7 L, Sodium 134 L, Potassium 3.4 L, Chloride 105, Carbon Dioxide 29, Anion Gap 3.4 L, BUN 12, Creatinine 0.50 L, Estimated Creat Clear 32, Estimated GFR 122, Est GFR ( Amer) 148, Glucose 326 H, Calcium 8.3 L, Magnesium 2.4 H D, Triglycerides 161 H, Cholesterol 157, LDL Cholesterol Direct 83.76 L, VLDL Cholesterol 32, HDL Cholesterol 30 L, Cholesterol/HDL Ratio 5.2 H Were Heparin and Warfarin started on the same day?: No
--- NOTE | 2025-02-01 09:45 | XR_ITS ---
PROCEDURE INFORMATION: Exam: XR Chest Exam date and time: 02/01/2025 9:42 AM Age: 69 years old Clinical indication: Shortness of breath; Additional info: SOA, rapid response TECHNIQUE: Imaging protocol: Radiologic exam of the chest. Views: 1 view. COMPARISON: CT ANGIO CHEST PE PROTOCOL 01/31/2025 5:16 PM FINDINGS: Lungs: The lungs are moderately expanded with minimal airspace opacities in the lower lobes. There is a 1 cm nodule in the right lower lobe. Pleural spaces: There is no pneumothorax or pleural effusion. Heart/Mediastinum: There is no cardiomegaly. Bones/joints: Osseous structures demonstrate no acute abnormalities. IMPRESSION: 1. Minimal airspace opacities in the lower lobes, likely related to atelectasis. 2. 1 cm nodule in the right lower lobe, better seen on previous CT chest and likely represents a calcified granuloma.
[2025-02-01] MEDS: ALBUTEROL 0.083% 2.5 MG/3 ML NEB IH (09:55)
--- NOTE | 2025-02-01 09:57 | ECG_ITS ---
APPROVED REPORT Exam: Resting ECG HR:150 bpm ECG Measurements Heart Rate 150 AXES QRSd 93 QRS -56 QT 328 T 50 QTc 413 Conclusion ATRIAL FIBRILLATION WITH RAPID VENTRICULAR RESPONSE PATTERN CONSISTENT WITH PULMONARY DISEASE LEFT ANTERIOR FASCICULAR BLOCK [QRS AXIS <= -45, QR IN I, RS IN II] MODERATE ST DEPRESSION [0.05+ mV ST DEPRESSION] CRITICAL TEST RESULT UNCONFIRMED REPORT Electronically signed by : Serafin Stover MD 02/02/2025 08:18:59
--- NOTE | 2025-02-01 10:08 | ECG_ITS ---
APPROVED REPORT Exam: Resting ECG HR:103 bpm ECG Measurements Heart Rate 103 AXES IL 219 P 44 QRSd 94 QRS 2 QT 430 T 38 QTc 490 Conclusion SINUS TACHYCARDIA WITH FIRST DEGREE AV BLOCK WITH OCCASIONAL ECTOPIC PREMATURE COMPLEXES NONSPECIFIC ST & T-WAVE ABNORMALITY ABNORMAL ECG UNCONFIRMED REPORT Electronically signed by : Serafin Stover MD 02/02/2025 08:18:53
[2025-02-01 10:41] LABS: Basophils # 0.2 K/mm3 (0-0.2); Basophils % 0.5 % (0.1-2.0); Eosinophils # 0.3 Kmm3 (0.0-0.4); Eosinophils % 0.8 % (0.1-12.0); Hematocrit 48.6 % (37.0-47.0); Immature Granulocytes # 0.32 10^3uL; Immature Granulocytes % 0.9 %; Lymphocytes # 15.1 K/mm3 (0.7-4.5); Lymphocytes % 41.5 % (10-50); Mean Corpuscular HGB Conc 31.7 g/dL (31.8-35.4); Mean Corpuscular Hemoglobin 28.6 pg (27.0-31.2); Mean Corpuscular Volume 90.2 fl (81-99); Mean Platelet Volume 9.3 fl (7.4-10.4); Monocytes # 2.7 K/mm3 (0.1-1.0); Monocytes % 7.4 % (1.7-9.3); Neutrophils # 17.8 K/mm3 (1.8-7.8); Neutrophils % 48.9 % (37.0-80.0); Nucleated Red Blood Cells # 0 10^3/uL; Nucleated Red Blood Cells % 0 %; Platelet Count 442 K/mm3 (142-424); Red Blood Count 5.39 M/mm3 (4.20-5.40); Red Cell Distribution Width 12.8 % (11.5-17.5); Red Cell Distribution Width-SD 42.2 fL
[2025-02-01 10:48] LABS: Chloride 98 mmol/L (98-107)
[2025-02-01 10:49] LABS: Albumin Level 3.7 g/dl (3.5-5.0); Potassium 4.3 mmoL/L (3.5-5.1); Sodium 136 mmol/L (136-145)
[2025-02-01 10:50] LABS: PTT Heparin (inpatient only) 50.2 Seconds (50-75)
[2025-02-01 10:51] LABS: Alanine Aminotransferase 41 U/L (12-78); Anion Gap 16.3 mEq/L (5-15); Aspartate Amino Transferase 44 U/L (14-36); Blood Urea Nitrogen 13 mg/dl (7-17); Carbon Dioxide 26 mmol/L (22.0-30.0); Creatinine Clearance Estimated 32 mL/min (50-200); Estimated Glomerular Filt Rate 99 ml/min (>60); GFR (African American) 120 ML/MIN (>60)
--- NOTE | 2025-02-01 10:51 | PC.NURSE ---
pt arrived to ICU to room 266 via bed at 1039 with MS DURANT
[2025-02-01 10:52] LABS: Albumin/Globulin Ratio 0.9 (1.1-1.8); Alkaline Phosphatase 128 U/L (38-126); Bilirubin,Total 0.5 mg/dl (0.2-1.3); Calcium 8.8 mg/dl (8.4-10.2); Total Protein,Serum 7.7 g/dl (6.3-8.2)
[2025-02-01 11:06] LABS: White Blood Count 36.3 K/mm3 (4.8-10.8)
[2025-02-01 11:07] LABS: MANUAL DIFFERENTIAL MANUAL DIFFERENTIAL (MANUAL DIFF)
[2025-02-01 11:08] LABS: Glucose 406 mg/dl (74-100)
[2025-02-01 11:09] LABS: POC Glucose,Bedside 379 (70-110)
[2025-02-01 11:14] LABS: Troponin I 0.05 ng/ml (0.00-0.034)
[2025-02-01] MEDS: FUROSEMIDE 40MG/4ML VIAL 40 MG IV ×2 (11:26→11:28)
[2025-02-01] MEDS: HYDRALAZINE 20MG/ML VIAL 10 MG IV (11:27)
[2025-02-01] MEDS: METHYLPREDNISOLONE SOD SUCC 125MG VIAL 125 MG IV (11:27)
[2025-02-01] MEDS: METOPROLOL TARTRATE 5MG/5ML VIAL 5 MG IV (11:29)
--- NOTE | 2025-02-01 11:39 | PC.NURSE ---
RN is aware of FSBS of 437 obtained at 1112. patient's rectal temperature is 100.2. only a flat sheet is covering patient, ice pack was given and a fan is in the room to cool down the temperature. Will continue to monitor temperature. family is at BS, call light is within reach.
[2025-02-01 11:40] LABS: ABG HCO3 27.5 mmhg (22.0-26.0); ABG PCO2 53.3 mmhg (35.0-45.0); ABG PH 7.33 mmol/L (7.35-7.45); ABG PO2 56.2 mmhg (80-100); ABG TCO2 29.2 mmhg (23-27)
[2025-02-01 11:41] LABS: ABG Base Excess 0.5 mmol/L (-2.4-2.3); ABG Oxygen Saturation 87 % (90-100); Allen's Test Acceptable; Oxygen 6L %; Source Right Radial
--- NOTE | 2025-02-01 11:51 | PC.NURSE ---
pt heparin drip stopper at 1120 per pharmacy v/o as pt has been started on lovenox.
[2025-02-01 11:59] LABS: POC Glucose,Bedside 437 (70-110)
[2025-02-01] MEDS: LEVALBUTEROL 1.25MG/3ML NEB 1.25 MG IH ×3 (12:01→23:28)
[2025-02-01] MEDS: IPRATROPIUM BROMIDE 0.5 MG/2.5ML SOLUTION IH ×3 (12:01→23:28)
[2025-02-01 12:29] LABS: Eosinophils % 1 % (0-3); Lymphocytes % 40 % (10-50); Monocytes % 2 % (2-9); Neutrophils % 57 % (42-76); RBC Morphology Normal; Total Cells Counted 100
[2025-02-01] MEDS: CEFEPIME HCL 1 GM in 0.9 % SODIUM CHLORIDE 50 ML IV ×2 (12:29→20:59)
[2025-02-01 12:30] LABS: Platelet Estimate Slight Increase
[2025-02-01] MEDS: ENOXAPARIN 120MG/0.8ML SYRINGE 105 MG SUBCUT ×2 (12:32→22:35)
[2025-02-01] MEDS: SPIRONOLACTONE 25MG TABLET 50 MG PO (12:42)
[2025-02-01] MEDS: IRBESARTAN 75MG TABLET 75 MG PO (13:03)
--- NOTE | 2025-02-01 13:14 | PC.NURSE ---
Patient transitioned from Bipap to 3lpm. Delmis in RT aware.[id number]
--- NOTE | 2025-02-01 13:24 | PC.NURSE ---
Rapid Response note: pt family used call light and stated we need help. charge nurse and SRNA went to pt room to find pt with increased work of breathing with accessory muscle use noted. Pt with audible wheezing. Pt was sat up in bed. 3L of oxygen via nasal cannula applied with no improvement in O2 saturation or work of breathing. Charge nurse contacted MD who arrived at bedside immediately. MD advised to call rapid response at this time (0945am). Rapid response team arrived to bedside at 0947. Pt noted to be hypertensive with BP on datascope reading 200's/100's. HR elevated in 140's. O2 saturations in 70's-80's. Interventions that ordered: Chest x-ray, breathing treatment, increase oxygen to 6L NC, 40mg lasix IV once at 0950, hydralazine 10mg IV once at 0955, EKG obtained at 0955, FSBS 379 at 0955, 2nd dose of IV lasix 40mg at 1000, BiPAP applied by RT at 1000, lopressor 5mg IV once at 1002 administered. Labs drawn at 1003, manual BP obtained at 1005 reading 160/100, repeat EKG obtained at 1008, solu-medrol 125mg IV once given at 1010. Pt BP stabilizing with manual reading 184/92 and O2 saturations in mid 90's. orders to transfer pt to step-down/ICU.
[2025-02-01 13:46] LABS: Hemoglobin 15.4 g/dL (12.2-16.2)
[2025-02-01 14:12] LABS: PTT Heparin (inpatient only) 27.9 Seconds (50-75)
[2025-02-01 16:22] LABS: POC Glucose,Bedside 396 (70-110)
[2025-02-01] MEDS: FUROSEMIDE 40MG/4ML VIAL 80 MG IV (16:53)
--- NOTE | 2025-02-01 17:16 | PC.NURSE ---
Called and updated provider on patient condition. pt is currently on 3lpm nc and sats are currently 95. pt is tolerating this well and states that she feels better. Dr Donald requests that an ABG be obtained in the am and to keep the bipap on standby in case it is needed during the night. provider also requests that if pt begins to have any issues overnight that a VBG be obtained. this information will be relayed to oncoming shift during report. pt has appeared to do well since arrival to unit this am. currently nad noted, pt is a/ox4 with several family members present at bedside t/o the shift. Will in RT was also notified of ABG order, order for vbg if needed and to keep bipap on standby. 171
--- NOTE | 2025-02-01 18:53 | P.PN_ITS ---
Subjective *Date: 02/02/25 *Time: 07:46 Interval history: Patient had a rapid response this morning, found to be hypoxic and fluid overloaded in the setting of A-fib RVR, hypertensive emergency. Responded well to Lasix, Lopressor, BiPAP. Will move to stepdown for further monitoring. Exam Data for Last 24 hours Vital signs and Labs for Last 24 Hours: Temp Pulse Resp BP Pulse Ox O2 Del Method O2 Flow Rate 97.7 F 100 H 21 109/60 L 95 Nasal Cannula 3 02/01/25 16:04 02/01/25 18:39 02/01/25 18:00 02/01/25 18:00 02/01/25 18:00 02/01/25 18:51 02/01/25 18:51 FiO2 32 02/01/25 18:40 Laboratory Results - last 24 hr 01/31/25 16:25: APTT 24.9 L 01/31/25 18:27: Troponin I 0.04 H 01/31/25 19:37: Lactate 1.5 01/31/25 21:21: Troponin I 0.07 H 01/31/25 22:20: APTT 36.2 L 01/31/25 23:42: POC Glucose 323 H* 02/01/25 01:26: APTT 31.5 L, Troponin I 0.07 H 02/01/25 05:17: POC Glucose 355 H* 02/01/25 06:10: WBC 17.4 H, RBC 4.28, Hgb 12.5, Hct 37.6, MCV 87.9, MCH 29.2, MCHC 33.2, RDW 12.6, Plt Count 307, MPV 8.7, Neut % (Auto) 67.4, Lymph % (Auto) 23.7, [place] % (Auto) 7.2, Eos % (Auto) 0.8, Baso % (Auto) 0.5, Neut # (Auto) 11.7 H, Lymph # (Auto) 4.1, [place] # (Auto) 1.3 H, Eos # (Auto) 0.1, Baso # (Auto) 0.1, APTT 46.7 L, Sodium 134 L, Potassium 3.4 L, Chloride 105, Carbon Dioxide 29, Anion Gap 3.4 L, BUN 12, Creatinine 0.50 L, Estimated Creat Clear 32, Estimated GFR 122, Est GFR ( Amer) 148, Glucose 326 H, Calcium 8.3 L, Magnesium 2.4 H D, Triglycerides 161 H, Cholesterol 157, LDL Cholesterol Direct 83.76 L, VLDL Cholesterol 32, HDL Cholesterol 30 L, Cholesterol/HDL Ratio 5.2 H 02/01/25 09:56: POC Glucose 379 H* 02/01/25 10:02: Specimen Source Right radial, O2 % 6l, ABG pH 7.33 L, ABG pCO2 53.3 H, ABG pO2 56.2 L, ABG HCO3 27.5 H, ABG Total CO2 29.2 H, ABG O2 Saturation 87 L*, ABG Base Excess 0.5, [place] Test Acceptable 02/01/25 10:05: WBC 36.3 H* D, RBC 5.39 D, Hgb 15.4 D, Hct 48.6 H, MCV 90.2, MCH 28.6, MCHC 31.7 L, RDW 12.8, Plt Count 442 H D, MPV 9.3, Neut % (Auto) 48.9, Lymph % (Auto) 41.5, [place] % (Auto) 7.4, Eos % (Auto) 0.8, Baso % (Auto) 0.5, Neut # (Auto) 17.8 H, Lymph # (Auto) 15.1 H, [place] # (Auto) 2.7 H, Eos # (Auto) 0.3, Baso # (Auto) 0.2, Total Counted 100, Neutrophils % (Manual) 57, Lymphocytes % (Manual) 40, Monocytes % (Manual) 2, Eosinophils % (Manual) 1, Platelet Estimate Slight increase, RBC Morphology Normal, APTT 50.2, Sodium 136, Potassium 4.3 D, Chloride 98, Carbon Dioxide 26, Anion Gap 16.3 H, BUN 13, Creatinine 0.60, Estimated Creat Clear 32, Estimated GFR 99, Est GFR ( Amer) 120, Glucose 406 H* D, Calcium 8.8, Total Bilirubin 0.5, AST 44 H, ALT 41, Alkaline Phosphatase 128 H, Troponin I 0.05 H, Total Protein 7.7, Albumin 3.7, Globulin 4.0 H, Albumin/Globulin Ratio 0.9 L 02/01/25 11:12: POC Glucose 437 H* 02/01/25 13:33: APTT 27.9 L 02/01/25 16:07: POC Glucose 396 H* I & O for Last 24 hours: Intake & Output 01/29/25 01/30/25 01/31/25 02/01/25 23:59 23:59 23:59 23:59 Intake Total 460 / 460 Output Total 5800 / 5800 5550 / 5550 Balance -5800 / -5800 -5090 / -5090 Weight 86.183 kg 103.929 kg Microbiology Reports for the Last 24 Hours: Microbiology 01/31/25 15:47 Blood Blood Culture - Preliminary NO GROWTH AFTER 24 HOURS 01/31/25 15:55 Blood Blood Culture - Preliminary NO GROWTH AFTER 24 HOURS 01/31/25 17:34 Foot,Right Gram Stain - Final 01/31/25 17:34 Foot,Right Wound Culture - Preliminary Constitutional Constitutional: no acute distress *Routine HEENT Exam Head: Present normocephalic Eye: Present EOMI and PERRL ENT: Present mucous membranes moist *Routine Neck Exam Neck: Present supple; Absent lymphadenopathy *Routine Respiratory Exam Respiratory: Present CTA bilaterally *Routine Cardiovascular Exam Cardiovascular: Present RRR *Routine Abdominal Exam Abdominal: Present soft and normoactive bowel sounds; Absent tenderness *Routine Extremities Exam Extremities: Absent cyanosis, clubbing or edema *Routine Skin Exam Skin: Present warm; Absent rash *Routine Neurological Exam Neurological: Present alert and oriented X3 Assessment and Plan *Assessment and plan (1) Pulmonary emboli: Status: Acute Category: Medical Code(s): I26.99 - Other pulmonary embolism without acute cor pulmonale (2) Cellulitis: Status: Acute Category: Medical Code(s): L03.90 - Cellulitis, unspecified (3) Gangrene of right foot: Status: Acute Category: Medical Code(s): I96 - Gangrene, not elsewhere classified (4) Acute non-ST elevation myocardial infarction (NSTEMI): Status: Acute Category: Medical Code(s): I21.4 - Non-ST elevation (NSTEMI) myocardial infarction (5) Leukocytosis: Status: Acute Qualifiers: Leukocytosis type: unspecified Qualified Code(s): D72.829 - Elevated white blood cell count, unspecified Category: Medical Code(s): D72.829 - Elevated white blood cell count, unspecified (6) Obesity: Status: Chronic Qualifiers: Body mass index: BMI 34.0-34.9 Obesity classification: adult class 1 (BMI 30 - 34.9) Obesity type: due to excess calories Serious obesity comorbidity presence: with serious comorbidity Qualified Code(s): E66.09 - Other obesity due to excess calories; Z68.34 - Body mass index (BMI) 34.0-34.9, adult Category: Medical Code(s): E66.9 - Obesity, unspecified (7) Celiac artery stenosis: Status: Acute Category: Medical Code(s): I77.4 - Celiac artery compression syndrome (8) Diabetes mellitus type 2 in obese: Status: Chronic Category: Medical Code(s): E11.69 - Type 2 diabetes mellitus with other specified complication; E66.9 - Obesity, unspecified (9) HLD (hyperlipidemia): Status: Chronic Qualifiers: Hyperlipidemia type: unspecified Qualified Code(s): E78.5 - Hyperlipidemia, unspecified Category: Medical Code(s): E78.5 - Hyperlipidemia, unspecified (10) HHD (hypertensive heart disease): Status: Chronic Qualifiers: Heart failure presence: without heart failure Qualified Code(s): I11.9 - Hypertensive heart disease without heart failure Category: Medical Code(s): I11.9 - Hypertensive heart disease without heart failure (11) CAD (coronary artery disease): Status: Chronic Category: Medical Code(s): I25.10 - Atherosclerotic heart disease of [place] coronary artery without angina pectoris Plan Gloria Romero is a 69-year-old female who presented with progressive shortness of breath, lower extremity pitting edema and was admitted for bilateral pulmonary emboli, HFpEF exacerbation, gangrenous right lower extremity. #Acute hypoxic, hypercapnic respiratory failure #Pulmonary emboli #HFpEF exacerbation #Flash pulmonary edema #A-fib RVR #NSTEMI #Suspected community-acquired pneumonia #Sepsis ? Presented with progressive shortness of breath, lower extremity edema. CTA chest showed left lower lobe, right middle lobe subsegmental pulmonary emboli. CXR with pulmonary edema. BNP 522. ? Given IV Lasix 80 mg overnight with over 7 L urine output. ? Patient had rapid response this morning, hypoxic to low 80s with BP in 220s over 130s. Also found to be in A-fib RVR. ABG showing mild acute hypercapnia. Improved with IV Lasix 80 mg, IV Lopressor 5 mg, DuoNebs, Solu-Medrol 125 mg, and BiPAP. A-fib RVR converted to NSR. WBC bumped to 36.3 after rapid response, likely reactive from stress response. ? Continue IV Lasix 80 mg twice daily, spironolactone 50 mg. Follow-up urine output, renal function, electrolytes. ? Continue IV Solu-Medrol 40 mg daily, DuoNebs every 6 hours. ? Started metoprolol 12.5 mg twice daily for Afib, lower dose chosen due to soft pressures and decompensated heart failure. HR currently 100. ? Continue vancomycin, cefepime pending sputum cultures. ? Therapeutic Lovenox for pulmonary emboli and A-fib. ? Follow-up ECHO, A1c, lipid panel, TSH. ? Cardiology, pulmonology consulted, pending further recommendations. # Ischemic right fifth toe #Cellulitis #PAD ? Consult to Dr. Carpio with podiatry and physical cardiology on Sunday morning. ? Continue antibiotic therapy with vancomycin and cefepime and clindamycin ? Follow-up right foot CT in the morning. #Celiac artery stenosis ? Continue aspirin, statin. Asymptomatic at this time. #T2DM Uncontrolled diabetes with a hemoglobin A1c of 11.6 Continue sliding scale insulin Will start Lantus 20 units daily #HLD #HTN Continue home medications DNR/DNI DVT prophylaxis: Therapeutic Lovenox
[2025-02-01] MEDS: ATORVASTATIN 40MG TABLET 40 MG PO (20:26)
[2025-02-01] MEDS: METOPROLOL TARTRATE 25MG TABLET 12.5 MG PO (20:26)
[2025-02-01] MEDS: humaLOG 100 UNITS/ML 10ML VIAL (SSI) 15 UNIT SUBCUT (20:42)
[2025-02-01 20:44] LABS: POC Glucose,Bedside 459 (70-110)
[2025-02-02] VITALS (41 sets, daily range): BP systolic 88–131; BP diastolic 37–66; PULSE 71–104; RESP 8–23; TEMP 36.6–37; O2SAT 89–98; BMI 48.7; BMI 48.4
[2025-02-02] MEDS: CLINDAMYCIN PHOSPHATE/D5W 900 MG/50 ML PIGGYBACK 100 MG IV ×3 (05:44→21:17)
[2025-02-02 06:00] LABS: POC Glucose,Bedside 409 (70-110)
[2025-02-02] MEDS: humaLOG 100 UNITS/ML 10ML VIAL (SSI) SUBCUT ×4 (06:00→20:25)
--- NOTE | 2025-02-02 06:34 | PC.NURSE ---
Pt A/Ox4. Pt has not voiced any complaints to staff throughout shift. Pt has remained on 3 L nc, tolerating well with sat >90%. Total urine output for shift 900ml. Family at bedside.
[2025-02-02] MEDS: LEVALBUTEROL 1.25MG/3ML NEB 1.25 MG IH (06:40)
[2025-02-02] MEDS: IPRATROPIUM BROMIDE 0.5 MG/2.5ML SOLUTION IH (06:40)
--- NOTE | 2025-02-02 07:17 | CA_ITS ---
FINAL REPORT CLINICAL HISTORY: PE'S,EDEMA LE'S,CELLULITIS FINDINGS: Multiple transverse and longitudinal scans were performed of the femoral popliteal deep venous system, with augmentation and compression maneuvers. Thrombus is seen in the right posterior tibial vein. Otherwise, normal phasic flow was noted in the visualized deep venous system. No intraluminal increased echogenicity is noted to suggest thrombus. There is normal compression and augmentation of the venous structures. No abnormal venous collaterals are seen. IMPRESSION: Isolated right calf venous thrombosis. Recommend follow-up Doppler exam in 7-10 days to assess for propagation. Reviewed, Interpreted and Dictated by Theresa Dow MD Transcribed by Mimi Wilkinson Authenticated and [facility]
--- NOTE | 2025-02-02 07:33 | P.CONS_ITS ---
Documented by User: Pamela Travis, [employer] 02/02/25 09:52 History of Present Illness *Admission Date: 01/31/25 *History of present illness: This is a 69-year-old female with past medical history of CAD, hypertension, hyperlipidemia, T2DM, prior CVA who presents emergency department today with complaints of shortness of breath and bilateral lower extremity edema. She also reports a wound on her fifth digit of her right foot. She reports that she has had swelling for some time but it has been getting worse over the last 3 days. She was put on Lasix by her primary care provider. Despite taking the Lasix she has had increased shortness of breath and swelling. With regards to the wound she states that she did not notice the wound until today. Denies any fever. Denies any chest pain. Emergency department workup notable for cellulitis versus gangrene to the right lower extremity. CTA chest abdomen pelvis obtained and notable for pulmonary emboli within the subsegmental artery to the left lower lobe and right middle lobe. Also notable is high-grade stenosis at the celiac trunk and SMA. Right dorsalis pedis artery not well-seen and could be occluded as well as the left dorsalis pedis artery. Also notable to have mid posterior tibial artery filling defect which could represent tiny blood clots Laboratory evaluation notable for leukocytosis with a white count of 18, elevated ESR of 58, glucose of 316, A1c of 11.9, troponin of 0.02 with uptrend to 0.04, CRP of 67 Dr Carpio was consulted with podiatry and recommended transfer initially. Transfer attempted by ED provider at . states the patient likely can go home with treatment for cellulitis but given patient's vascular disease and pulmonary emboli it was felt that she would benefit from hospitalization. After multiple discussions with the ED provider and family, family wishes to be admitted here or discharged home. Does not want transfer to any other facility. States that they are happy with the care they are receiving here. ER provider did inform them that vascular surgery was probably the best option for salvage care of the foot. They are understanding that the best course of treatment would likely be vascular surgery but would like to be admitted here for IV antibiotics and blood thinners until they can have a more lengthy family discussion on goals of care. Patient is in agreement to this. Dr. Rangel was consulted at the time of decision to stay here at this facility and will be happy to consult on Sunday for consult for possible revascularization. Dr. Carpio also notified of patient's admission here to this hospital. [facility] Disclaimer: The information contained in this section may have been updated after the patient was seen, as this information can be updated by other users. Medical History Wound of left lower extremity HLD (hyperlipidemia) HHD (hypertensive heart disease) CAD (coronary artery disease) Obesity Social History Smoking Status: Never smoker alcohol intake: never substance use type: denies use current occupational status: other Travel in the last 8 weeks?: Inside the [place] household members: spouse and family housing: house current occupation: farm/ house work current occupational exposures/hazards: No Have you lived/traveled outside US in past 30 days?: No Contact w/someone who lives/traveled outside US past 30 days?: No Exposure to someone with infectious disease in past 14 days?: No Do you have a fever (greater than 100.4 F or 38 C)?: No Have you tested positive for COVID-19?: No Exposed to someone with COVID-19 in past 14 days?: No Do you have a sore throat?: No Do you have a cough?: No Do you have any weakness?: No Do you have any diarrhea?: No Are you experiencing any unusual bleeding?: No Do you have any muscle aches/pain?: No Do you have any abdominal pain?: No Are you experiencing loss of taste or smell?: No Meds Home Medications and Allergies Home Medications ?Medication ?Instructions ?Recorded ?Confirmed ?Type metformin 500 mg tablet,extended 500 mg PO BID Diabete s 10/28/22 01/31/25 History release 24 hr bisoprolol fumarate 5 mg tablet 5 mg PO DAILY #30 tabs 01/29/23 01/31/25 Rx lisinopril 5 mg tablet 5 mg PO DAILY #30 tabs 01/2901/31/25 Rx cephalexin 500 mg capsule 500 mg PO BID 01/31/2501/31 History New Prescriptions to Start Prescriptions: Allergies Allergy/AdvReac Type Severity Reaction Status Date / Time No Known Allergies Allergy Verified 02/21/19 09:16 Exam (Inpt) Vital signs and Labs for Last 24 Hours: Temp Pulse Resp BP Pulse Ox O2 Del Method O2 Flow Rate 97.8 F 80 20 128/52 L 94 L Nasal Cannula 2 02/02/25 04:00 02/02/25 06:40 02/02/25 06:02 02/02/25 06:02 02/02/25 06:40 02/02/25 06:40 02/02/25 06:40 FiO2 32 02/01/25 18:40 Laboratory Results - last 24 hr 02/01/25 09:56: POC Glucose 379 H* 02/01/25 10:02: Specimen Source Right radial, O2 % 6l, ABG pH 7.33 L, ABG pCO2 53.3 H, ABG pO2 56.2 L, ABG HCO3 27.5 H, ABG Total CO2 29.2 H, ABG O2 Saturation 87 L*, ABG Base Excess 0.5, [place] Test Acceptable 02/01/25 10:05: WBC 36.3 H* D, RBC 5.39 D, Hgb 15.4 D, Hct 48.6 H, MCV 90.2, MCH 28.6, MCHC 31.7 L, RDW 12.8, Plt Count 442 H D, MPV 9.3, Neut % (Auto) 48.9, Lymph % (Auto) 41.5, [place] % (Auto) 7.4, Eos % (Auto) 0.8, Baso % (Auto) 0.5, N eut # (Auto) 17.8 H, Lymph # (Auto) 15.1 H, [place] # (Auto) 2.7 H, Eos # (Auto) 0.3, Baso # (Auto) 0.2, Total Counted 100, Neutrophils % (Manual) 57, Lymphocytes % (Manual) 40, Monocytes % (Manual) 2, Eosinophils % (Manual) 1, Platelet Estimate Slight increase, RBC Morphology Normal, APTT 50.2, Sodium 136, Potassium 4.3 D, Chloride 98, Carbon Dioxide 26, Anion Gap 16.3 H, BUN 13, Creatinine 0.60, Estimated Creat Clear 32, Estimated GFR 99, Est GFR ( Amer) 120, Glucose 406 H* D, Calcium 8.8, Total Bilirubin 0.5, AST 44 H, ALT 41, Alkaline Phosphatase 128 H, Troponin I 0.05 H, Total Protein 7.7, Albumin 3.7, G lobulin 4.0 H, Albumin/Globulin Ratio 0.9 L 02/01/25 11:12: POC Glucose 437 H* 02/01/25 13:33: APTT 27.9 L 02/01/25 16:07: POC Glucose 396 H* 02/01/25 20:33: POC Glucose 459 H* 02/02/25 05:49: POC Glucose 409 H* I & O for Labs for Last 24 Hours: Intake & Output 01/30/25 01/31/25 02/01/25 02/02/25 23:59 23:59 23:59 23:59 Intake Total 1040 / 1040 205 / 205 Output Total 5800 / 5800 5550 / 5550 900 / 900 Balance -5800 / -5800 -4510 / -4510 -695 / -695 Weight 190 lb 229 lb 2 oz 226 lb Microbiology Reports for the Last 24 Hours: Microbiology 01/31/25 15:47 Blood Blood Culture - Preliminary NO GROWTH AFTER 24 HOURS 01/31/25 15:55 Blood Blood Culture - Preliminary NO GROWTH AFTER 24 HOURS 01/31/25 17:34 Foot,Right Gram Stain - Final 01/31/25 17:34 Foot,Right Wound Culture - Preliminary Results Labs 02/02/25 07:35 02/02/25 07:35 Labs: Abnormal lab results 02/01/25 02/01/25 02/01/25 Range/Units 09:56 10:02 10:05 WBC 36.3 H* D (4.8-10.8) K/mm3 Hct 48.6 H (37.0-47.0) % MCHC 31.7 L (31.8-35.4) g/dL Plt Count 442 H D (142-424) K/mm3 Neut # (Auto) 17.8 H (1.8-7.8) K/mm3 Lymph # (Auto) 15.1 H (0.7-4.5) K/mm3 [place] # (Auto) 2.7 H (0.1-1.0) K/mm3 APTT (50-75) Seconds ABG pH 7.33 L (7.35-7.45) mmol/L ABG pCO2 53.3 H (35.0-45.0) mmhg ABG pO2 56.2 L (80-100) mmhg ABG HCO3 27.5 H (22.0-26.0) mmhg ABG Total CO2 29.2 H (23-27) mmhg ABG O2 Saturation 87 L* (90-100) % Anion Gap 16.3 H (5-15) mEq/L Glucose 406 H* D (74-100) mg/dl POC Glucose 379 H* (70-110) AST 44 H (14-36) U/L Alkaline Phosphatase 128 H (38-126) U/L Troponin I 0.05 H (0.00-0.034) ng/ml Globulin 4.0 H (1.3-3.2) g/dL Albumin/Globulin Ratio 0.9 L (1.1-1.8) 02/01/25 02/01/25 02/01/25 Range/Units 11:12 13:33 16:07 WBC (4.8-10.8) K/mm3 Hct (37.0-47.0) % MCHC (31.8-35.4) g/dL Plt Count (142-424) K/mm3 Neut # (Auto) (1.8-7.8) K/mm3 Lymph # (Auto) (0.7-4.5) K/mm3 [place] # (Auto) (0.1-1.0) K/mm3 APTT 27.9 L (50-75) Seconds ABG pH (7.35-7.45) mmol/L ABG pCO2 (35.0-45.0) mmhg ABG pO2 (80-100) mmhg ABG HCO3 (22.0-26.0) mmhg ABG Total CO2 (23-27) mmhg ABG O2 Saturation (90-100) % Anion Gap (5-15) mEq/L Glucose (74-100) mg/dl POC Glucose 437 H* 396 H* (70-110) AST (14-36) U/L Alkaline Phosphatase (38-126) U/L Troponin I (0.00-0.034) ng/ml Globulin (1.3-3.2) g/dL Albumin/Globulin Ratio (1.1-1.8) 02/01/25 02/02/25 Range/Units 20:33 05:49 WBC (4.8-10.8) K/mm3 Hct (37.0-47.0) % MCHC (31.8-35.4) g/dL Plt Count (142-424) K/mm3 Neut # (Auto) (1.8-7.8) K/mm3 Lymph # (Auto) (0.7-4.5) K/mm3 [place] # (Auto) (0.1-1.0) K/mm3 APTT (50-75) Seconds ABG pH (7.35-7.45) mmol/L ABG pCO2 (35.0-45.0) mmhg ABG pO2 (80-100) mmhg ABG HCO3 (22.0-26.0) mmhg ABG Total CO2 (23-27) mmhg ABG O2 Saturation (90-100) % Anion Gap (5-15) mEq/L Glucose (74-100) mg/dl POC Glucose 459 H* 409 H* (70-110) AST (14-36) U/L Alkaline Phosphatase (38-126) U/L Troponin I (0.00-0.034) ng/ml Globulin (1.3-3.2) g/dL Albumin/Globulin Ratio (1.1-1.8) H & H 01/31/25 02/01/25 02/01/25 Range/Units 15:47 06:10 10:05 Hgb 12.7 12.5 15.4 D (12.2-16.2) g/dL Hct 37.4 37.6 48.6 H (37.0-47.0) % Coagulation 01/31/25 Range/Units 16:20 INR 1.03 (0.9-1.1) All other labs normal. Assessment and Plan *Assessment and plan (1) Gangrene of right foot: Status: Acute Category: Medical Code(s): I96 - Gangrene, not elsewhere classified (2) Cellulitis of right foot: Status: Acute Category: Medical Code(s): L03.115 - Cellulitis of right lower limb (3) Diabetic ulcer of right foot: Status: Acute Qualifiers: Diabetes mellitus type: type 2 Diabetic foot ulcer location: toe Non- pressure ulcer stage: with muscle involvement without evidence of necrosis Q ualified Code(s): E11.621 - Type 2 diabetes mellitus with foot ulcer; L97.515 - Non-pressure chronic ulcer of other part of right foot with muscle involvement without evidence of necrosis Category: Medical Code(s): E11.621 - Type 2 diabetes mellitus with foot ulcer; L97.519 - Non-pressure chronic ulcer of other part of right foot with unspecified severity (4) Gangrene due to peripheral vascular disease: Status: Acute Category: Medical Code(s): I73.9 - Peripheral vascular disease, unspecified (5) Diabetes mellitus with diabetic neuropathy: Status: Acute Qualifiers: Diabetes mellitus detention insulin use: with regional intermodal truck driver use Diabetes mellitus type: type 2 Qualified Code(s): E11.40 - Type 2 diabetes mellitus with diabetic neuropathy, unspecified; Z79.4 - residential (current) use of insulin Category: Medical Code(s): E11.40 - Type 2 diabetes mellitus with diabetic neuropathy, unspecified (6) Morbid obesity with body mass index (BMI) of 40.0 to 49.9: Status: Acute Category: Medical Code(s): E66.01 - Morbid (severe) obesity due to excess calories (7) Deep vein thrombosis (DVT) of right posterior tibial vein: Status: Acute Category: Medical Code(s): I82.441 - Acute embolism and thrombosis of right tibial vein Documented by User: Makenzie Carpio DPM 02/02/25 09:01 History of Present Illness *Reason for visit:: Right toe gangrene, PAD, cellulitis *History of present illness: This is a 69-year-old female with past medical history of CAD, hypertension, hyperlipidemia, T2DM, prior CVA who presents emergency department today with complaints of shortness of breath and bilateral lower extremity edema. She also reports a wound on her fifth digit of her right foot. She reports that she has had swelling for some time but it has been getting worse over the last 3 days. She was put on Lasix by her primary care provider. Despite taking the Lasix she has had increased shortness of breath and swelling. With regards to the wound she states that she did not notice the wound until today. Denies any fever. Denies any chest pain. Emergency department workup notable for cellulitis versus gangrene to the right lower extremity. CTA chest abdomen pelvis obtained and notable for pulmonary emboli within the subsegmental artery to the left lower lobe and right middle lobe. Also notable is high-grade stenosis at the celiac trunk and SMA. Right dorsalis pedis artery not well-seen and could be occluded as well as the left dorsalis pedis artery. Also notable to have mid posterior tibial artery filling defect which could represent tiny blood clots Laboratory evaluation notable for leukocytosis with a white count of 18, elevated ESR of 58, glucose of 316, A1c of 11.9, troponin of 0.02 with uptrend to 0.04, CRP of 67 Dr Carpio was consulted with podiatry and recommended transfer initially. Transfer attempted by ED provider at . states the patient likely can go home with treatment for cellulitis but given patient's vascular disease and pulmonary emboli it was felt that she would benefit from hospitalization. After multiple discussions with the ED provider and family, family wishes to be admitted here or discharged home. Does not want transfer to any other facility. States that they are happy with the care they are receiving here. ER provider did inform them that vascular surgery was probably the best option for salvage care of the foot. They are understanding that the best course of treatment would likely be vascular surgery but would like to be admitted here for IV antibiotics and blood thinners until they can have a more lengthy family discussion on goals of care. Patient is in agreement to this. Dr. Rangel was consulted at the time of decision to stay here at this facility and will be happy to consult on Sunday for consult for possible revascularization. Dr. Carpio also notified of patient's admission here to this hospital. 02/02/25, Podiatry Consult: Patient seen and evaluated by podiatry [employer] and myself. Discussed patient with ER Doctor Usha Rajan 01/31/25. Based on imaging being negative for gas and osteomyelitis, dusky toe with gangrene and blood clot my recommendation was transfer for vascular evaluation. Patient/family refused transfer. Due to her elevated white count, ESR, CRP, uncontrolled diabetes, pulmonary embolism clots and gangrene, decision made for admission for IV antibiotics and blood thinners. Patient denies significant pain to the right foot today. Reports some shortness of breath. Patient does not want amputation. Had a very interactive discussion with her /family regarding her plan of care. At home they were using Kenzie and jorge and have in the past to treat other wounds. PCP: Nydia Carlos. Will monitor and await if cardiology can offer any revascularization options. [facility] Medical History Wound of left lower extremity HLD (hyperlipidemia) HHD (hypertensive heart disease) CAD (coronary artery disease) Obesity Social History Smoking Status: Never smoker alcohol intake: never substance use type: denies use current occupational status: other Travel in the last 8 weeks?: Inside the [place] household members: spouse and family housing: house current occupation: farm/ house work current occupational exposures/hazards: No Have you lived/traveled outside [place] in past 30 days?: No Contact w/someone who lives/traveled outside [place] past 30 days?: No Exposure to someone with infectious disease in past 14 days?: No Do you have a fever (greater than 100.4 F or 38 C)?: No Have you tested positive for COVID-19?: No Exposed to someone with COVID-19 in past 14 days?: No Do you have a sore throat?: No Do you have a cough?: No Do you have any weakness?: No Do you have any diarrhea?: No Are you experiencing any unusual bleeding?: No Do you have any muscle aches/pain?: No Do you have any abdominal pain?: No Are you experiencing loss of taste or smell?: No Review of Systems Review of Systems Review of systems:: pertinent systems reviewed and negative unless documented below Review of systems (narrative): Negative except for HPI Constitutional Constitutional: Reports system reviewed and no additional complaints, except as documented, Reports fatigue and Reports weakness Eyes Eyes: Reports system reviewed and no additional complaints, except as documented *Cardiovascular Cardiovascular: Reports dyspnea and Reports edema *Respiratory Respiratory: Reports dyspnea *Gastrointestinal Gastrointestinal: Reports system reviewed and no additional complaints, except as documented *Genitourinary Comments: Lainez in place *Musculoskeletal Musculoskeletal: Reports joint swelling, Reports muscle weakness and 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) Integumentary/Breasts Skin/Breast: Reports change in pigmentation, Reports non-healing lesions, Reports skin swelling and Reports wounds (R 5th toe) *Neurologic Neurologic: 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), Reports paresthesias and Reports weakness Psychiatric Psychiatric: Reports anxiety (crying at bedside) Endocrine Endocrine: Reports fatigue Meds Home Medications and Allergies Home Medications ?Medication ?Instructions ?Recorded ?Confirmed ?Type metformin 500 mg tablet,extended 500 mg PO BID Diabete s 10/28/22 01/31/25 History release 24 hr bisoprolol fumarate 5 mg tablet 5 mg PO DAILY #30 tabs 01/29/23 01/31/25 Rx lisinopril 5 mg tablet 5 mg PO DAILY #30 tabs 01/2901/31/25 Rx cephalexin 500 mg capsule 500 mg PO BID 01/31/2501/31 History New Prescriptions to Start Prescriptions: Allergies Allergy/AdvReac Type Severity Reaction Status Date / Time No Known Allergies Allergy Verified 02/21/19 09:16 Exam (Inpt) Constitutional: Present no acute distress and morbidly obese Head: Present normocephalic Neck: Present normal inspection Respiratory: Absent respiratory distress Cardiac: Absent pedal pulses present Comment:: Unable to palpable DP pulses b/l. Decreased pedal hair growth. Dusky changes to right 5th toe. Rectal (female): Present deferred (female): Present deferred Extremities: Present calf tenderness; Absent normal capillary refill Comment:: Right 5th toe has dusky discoloration. There is a sulcus at the inferior aspect of the 5th MPJ. Mild toe cellulitis. The 5th toe has skin intact but is loose and looks like it will slough off. The inferior sulcus is deep but no exposed bone. No debridement. Skin cleansed with betadine. Right DFU: 100% grayish-black dusky, 2 x 0.2 x 0.4cm. No sheng purulence, malodor or ascending cellulitis. WCx taken by ER 01/31/25. Neuro: Present Motor Function Intact, oriented x 3 and moves all extremities; Absent Sensory Function Intact Ankle: bilateral: normal inspection and bilateral: swelling (b/l LE pitting edema) Feet/Toes: right: wound (R 5th toe DFU, gangrene) and bilateral: hammer toe, bilateral: nail abnormalities (thick elongated) and bilateral: swelling (b/l LE) Inspection: Present skin break, infection and ulceration Pulses: L posterior tibial pulse: diminished and R posterior tibial pulse: diminished CFT: dim: CFT Results Labs 02/02/25 07:35 02/02/25 07:35 Diagnostic results Ankle/Foot x-ray: report reviewed and image reviewed (no acute fracture, gas or OM noted) Ankle/Foot CT: report reviewed (CT angio) and image reviewed Assessment and Plan *Assessment and plan (1) Gangrene of right foot: Status: Acute Category: Medical Code(s): I96 - Gangrene, not elsewhere classified (2) Cellulitis of right foot: Status: Acute Category: Medical Code(s): L03.115 - Cellulitis of right lower limb (3) Diabetic ulcer of right foot: Status: Acute Qualifiers: Diabetes mellitus type: type 2 Diabetic foot ulcer location: toe Non- pressure ulcer stage: with muscle involvement without evidence of necrosis Q ualified Code(s): E11.621 - Type 2 diabetes mellitus with foot ulcer; L97.515 - Non-pressure chronic ulcer of other part of right foot with muscle involvement without evidence of necrosis Category: Medical Code(s): E11.621 - Type 2 diabetes mellitus with foot ulcer; L97.519 - Non-pressure chronic ulcer of other part of right foot with unspecified severity (4) Gangrene due to peripheral vascular disease: Status: Acute Category: Medical Code(s): I73.9 - Peripheral vascular disease, unspecified (5) Diabetes mellitus with diabetic neuropathy: Status: Acute Qualifiers: Diabetes mellitus detention insulin use: with regional intermodal truck driver use Diabetes mellitus type: type 2 Qualified Code(s): E11.40 - Type 2 diabetes mellitus with diabetic neuropathy, unspecified; Z79.4 - regional intermodal truck driver (current) use of insulin Category: Medical Code(s): E11.40 - Type 2 diabetes mellitus with diabetic neuropathy, unspecified (6) Morbid obesity with body mass index (BMI) of 40.0 to 49.9: Status: Acute Category: Medical Code(s): E66.01 - Morbid (severe) obesity due to excess calories (7) Deep vein thrombosis (DVT) of right posterior tibial vein: Status: Acute Category: Medical Code(s): I82.441 - Acute embolism and thrombosis of right tibial vein Plan Imagin01/31/25, 3v right foot. FINDINGS: Bones/joints: Degenerative changes of the interphalangeal joints. No evidence of acute fracture or dislocation. Calcaneal spurs are present. Soft tissues: Lateral soft tissue swelling. IMPRESSION: 1. Degenerative changes of the interphalangeal joints. 2. Lateral soft tissue swelling. 3. No evidence of acute fracture or dislocation. . 01/31/25, CT Angio, COMPARISON: CT ANGIO CHEST PE PROTOCOL 01/31/2025 5:16 PM. FINDINGS: Tubes, catheters and devices: Lainez catheter. Aorta: No aortic aneurysm. No aortic dissection. Celiac trunk and mesenteric arteries: High- grade stenosis proximal celiac trunk and SMA 70%. Renal arteries: No occlusion or significant stenosis. Right iliac arteries: No occlusion or significant stenosis. Right femoral/popliteal arteries: No occlusion or significant stenosis. Right infrapopliteal arteries: The right dorsalis pedis artery is not well seen and could be occluded. Left iliac arteries: No occlusion or significant stenosis. Left femoral/popliteal arteries: No occlusion or significant stenosis. Left infrapopliteal arteries: The left dorsalis pedis artery is not seen and could be occluded. There is tiny filling defects within the mid left posterior tibial artery which could indicate tiny blood clots. Lungs: Atelectasis in the lung bases. Liver: No mass. Gallbladder and biliary ducts: Unremarkable. No calcified stones. No ductal dilation. Pancreas: Unremarkable. No mass. No ductal dilation. Spleen: Normal. No splenomegaly. Adrenal glands: Left adrenal adenoma. Kidneys and ureters: Normal. No mass. Stomach and bowel: Unremarkable. No obstruction. No mucosal thickening. Appendix: No evidence of appendicitis. Urinary bladder: Unremarkable. No mass. Reproductive: Unremarkable as visualized. Intraperitoneal space: Unremarkable. No free air. No significant fluid collection. Lymph nodes: Right groin enlarged lymph nodes. Bones/joints: No acute fracture. No dislocation. Soft tissues: Soft tissue swelling and skin thickening involving the inferior pannus reflecting cellulitis. Soft tissue swelling involving the right calf but no soft tissue gas or abscess. Soft tissue swelling involving the calf on the left skin thickening. No abscess or soft tissue gas. IMPRESSION: 1. 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 2. The right dorsalis pedis artery is not well seen and could be occluded or this could be due to slow flow. 3. The left dorsalis pedis artery is not seen and could be occluded or this could be due to slow flow. 4. There is tiny filling defects within the mid left posterior tibial artery which could indicate tiny blood clots. 02/02/25, B/L LE Venous Doopler: FINDINGS: Multiple transverse and longitudinal scans were performed of the femoral popliteal deep venous system, with augmentation and compression maneuvers. Thrombus is seen in the right posterior tibial vein. Otherwise, normal phasic flow was noted in the visualized deep venous system. No intraluminal increased echogenicity is noted to suggest thrombus. There is normal compression and augmentation of the venous structures. No abnormal venous collaterals are seen. IMPRESSION: Isolated right calf venous thrombosis. Recommend follow-up Doppler exam in 7-10 days to assess for propagation. Reviewed, Interpreted and Dictated by Theresa Dow MD. Transcribed by Mimi Wilkinson. 02/02/25, B/L LE ABIs: canceled due to DVT R PT vein Specimens: 01/31/25: Right foot WCx: GNR x3 Labs: 01/31/25: wbc 18.2, esr 58, 67.8, cr 0.5, gfr 122, glucose 316, albumin 3.4 02/01/25: wbc 36.3, cr 0.6, gfr 99, glucose 406, albumin 3.7 02/02/25: wbc 24.4, glucose 409 02/02/25, Podiatry Consult Infected Wound: Right 5th toe DFU, gangrene: -Ulcer, skin changes x 1 week per patient (may have hit it on the wheelchair). -Discussed the importance of proper hygiene and maintaining a clean healthy wound bed to avoid the infection spreading. -Wound was cleansed with betadine. -No debridement due to gangrene. -Discussed local wound care, abx for cellulitis. -Right 5th toe: paint with betadine daily, avoid tight dressings. -Discussed if infection is not responding or worsens, may need more oral/IV abx, surgical debridement, and/or amputation. -Review x-rays 3v foot, (-) OM. -Reviewed infection panel: CBC, CMP, ESR, CRP, Ha1c, wound culture. -Independent review of x-rays, CT angio. -WBaT in post op shoe, will need. -IV Abx: Vanco, Cefepime, Clinda per Hospitalist team -Gangrene, PAD, blood clot: defer to Cardiology -Podiatry plan: continue abx and monitor, no plans for surgery -I had a long discussion with the patient and her family about prognosis. I explained likely when she hit the fifth toe on wheelchair, it caused some early bruising but because of the poor blood flow and uncontrolled diabetes, it has gangrenous changes. At this point imaging and clinical exam does not show osteomyelitis or gas gangrene, so I would not recommend amputation. My recommendation would be IV antibiotics for the cellulitis and monitor. Patient/family understand however if she starts to get septic, if clinical signs of infection worsen, or any new imaging shows bone infection or or gas gangrene, she may need an amputation. I explained that toe amputation in a patient with PAD can cause further gangrenous changes which may necessitate TMA, partial adductus of foot or loss of leg. Combined with patient's uncontrolled diabetes of an A1c of 11.9, her prognosis is guarded due to her lack of healing potential from sugar and blood flow. My initial recommendation was to [facility] transfer for vascular, however patient refused in the ER. Thankfully, Dr Rangel has agreed to consult. I explained to the patient there may or may not be any revascularization options and therefore I cannot predict what will happen with her toe. There is a chance it could auto amputate. Podiatry recommendations, daily paint with Betadine, avoid tight dressings, monitor for changes, avoid aggressive surgery/debridement. Podiatry will continue to follow.
[2025-02-02 07:46] LABS: Basophils # 0.1 K/mm3 (0-0.2); Basophils % 0.2 % (0.1-2.0); Hematocrit 39.1 % (37.0-47.0); Immature Granulocytes # 0.13 10^3uL; Immature Granulocytes % 0.5 %; Lymphocytes # 3.2 K/mm3 (0.7-4.5); Lymphocytes % 13.1 % (10-50); Mean Corpuscular HGB Conc 34.3 g/dL (31.8-35.4); Mean Corpuscular Hemoglobin 29.7 pg (27.0-31.2); Mean Corpuscular Volume 86.7 fl (81-99); Mean Platelet Volume 8.9 fl (7.4-10.4); Monocytes # 1.5 K/mm3 (0.1-1.0); Monocytes % 6.1 % (1.7-9.3); Neutrophils # 19.5 K/mm3 (1.8-7.8); Neutrophils % 80.1 % (37.0-80.0); Nucleated Red Blood Cells # 0 10^3/uL; Nucleated Red Blood Cells % 0 %; Platelet Count 377 K/mm3 (142-424); Red Blood Count 4.51 M/mm3 (4.20-5.40); Red Cell Distribution Width 12.6 % (11.5-17.5); Red Cell Distribution Width-SD 40.1 fL; White Blood Count 24.4 K/mm3 (4.8-10.8)
[2025-02-02 07:48] LABS: Hemoglobin 13.4 g/dL (12.2-16.2)
[2025-02-02 07:53] LABS: Albumin Level 3.4 g/dl (3.5-5.0); Chloride 95 mmol/L (98-107); Potassium 3.5 mmoL/L (3.5-5.1); Sodium 135 mmol/L (136-145)
[2025-02-02 07:56] LABS: Alanine Aminotransferase 54 U/L (12-78); Albumin/Globulin Ratio 0.9 (1.1-1.8); Alkaline Phosphatase 99 U/L (38-126); Anion Gap 10.5 mEq/L (5-15); Aspartate Amino Transferase 125 U/L (14-36); Bilirubin,Total 0.4 mg/dl (0.2-1.3); Blood Urea Nitrogen 22 mg/dl (7-17); Carbon Dioxide 33 mmol/L (22.0-30.0); Creatinine Clearance Estimated 32 mL/min (50-200); Estimated Glomerular Filt Rate 99 ml/min (>60); GFR (African American) 120 ML/MIN (>60); Total Protein,Serum 7.4 g/dl (6.3-8.2)
[2025-02-02 07:57] LABS: Calcium 8.3 mg/dl (8.4-10.2)
[2025-02-02 08:14] LABS: Vancomycin,Trough < 5.0 ug/mL (5.0-10.0)
[2025-02-02 08:17] LABS: Glucose 475 mg/dl (74-100)
--- NOTE | 2025-02-02 09:00 | CA_ITS ---
APPROVED REPORT EXAM: Comprehensive 2D, Doppler, and color-flow Echocardiogram Tractor Driver: Mitra MirandaJHONY Ht: 4 ft 9 in Wt: 226lbs BSA: 1.89 BP: 109/60 mmHg Indications: Congestive Heart Failure,Pulmonary Embolism 2D Dimensions LA Volume 61.60 mL LA Volume Index 32.42 mL/m2 (M/F) 16-34 M-Mode Dimensions RVDd 2.05 cm (0.9-2.6) LA Diam 3.87 cm (1.9-4.0) LVDd 4.98 cm (3.5-5.7) LVDs 3.38 cm (3.5-5.7) IVSd 1.08 cm (0.6-1.1) PWd 0.64 cm (0.6-1.1) EF (Teich) 60.00% FS 32.10% EDV (Teich) 117.10 mL ESV (Teich) 46.80 mL LV Diastology E Decel Time 150 (160-240 msec) E/A Ratio 0.7 Aortic Valve DAVID Index 1.10 cm2/m2 AoV Peak Edmond. 158.0 (50-130 cm/s) AO Peak GR. 9.90 mmHg AO Mean GR. 6.00 (<5 mmHg) AO VTI 28.8 (18-25 cm) DAVID (VTI) 2.14 (2.5-4.5 cm2) Mitral Valve MV E Max [place]. 57.0 (40-130 cm/s) MV A Velocity 80.0 (40-130 cm/s) E/A Ratio 0.71 MV PHT 44.0 ms Pulmonary Valve PV Peak Velocity 88.0 (50-150 cm/s) Left Ventricle The left ventricle is normal size. The left ventricular systolic function is normal. The left ventricular ejection fraction is within the normal range. There is increased LV wall thickness. There is normal LV segmental wall motion. Transmitral Doppler flow pattern suggests impaired LV relaxation. LVEF is 55%. Right Ventricle Right ventricle is mildly dilated. Right ventricle is mildly hypokinetic. Atria The left atrium is mildly dilated. Right atrium is mildly dilated. There is no Doppler evidence of interatrial shunt. Aortic Valve Aortic valve is mildly thickened. Aortic sclerosis is present, but no evidence of hemodynamically significant aortic stenosis. Trace aortic regurgitation. Mitral Valve The mitral valve is mildly thickened. No evidence of mitral valve stenosis. Trace mitral regurgitation. Tricuspid Valve Tricuspid valve is grossly normal in structure and function. Trace tricuspid regurgitation. There is insufficient TR jet to estimate RVSP. Pulmonic Valve The pulmonary valve is normal in structure. Trace pulmonic regurgitation. Great Vessels The aortic root is normal in size. IVC is normal in size and collapses >50% with inspiration. Pericardium There is no pericardial effusion. Other Information Study Quality: Fair Conclusion Normal LV systolic function. Mild RV dilation with mild reduction in RV function. Mild biatrial dilation. No significant valvular stenosis or regurgitation. Electronically signed by : Shelli Murrieta MD 02/02/2025 12:20:23
--- NOTE | 2025-02-02 09:05 | EXP.CARD.CON ---
History of Present Illness History of Present Illness Consult date: 02/02/25 Requesting physician: Bob Donald Consult reason: congestive heart failure Chief complaint: SOA, LE edema Additional Medical History:: 1. CAD A. LHC, 07/2018, referred for CABG. Patient declined. B. SHANNAN to LAD, 07/2018, 2. Diabetes mellitus 3. Hypertension A. Echocardiogram 07/25/2018, mild LAE, normal LV size, mild concentric LVH, EF 55% with no regional WMA. G1 DD. Mild MR/TR. 4. History of CVA 5. DNR/DNI History of present illness: 69-year-old [place] female presented to the emergency department at the insistence of her PCP for failure of outpatient therapy to treat swelling and shortness of breath in addition to a wound to the right foot. Workup in the ER revealed evidence of distal bilateral pulmonary emboli for which the patient was started on IV heparin. Also concern for right foot infection with possible gangrene. IV antibiotics were started in form of vancomycin, cefepime and clindamycin. Due to edema patient was also started on IV Lasix. She has had significant urine output with improvement in symptoms. The morning of 02/01/2025 patient had a rapid response called due to hypoxia and fluid overload in the setting of A-fib with RVR and hypertensive emergency. She responded well to Lasix, Lopressor IV and BiPAP therapy. This morning patient is sitting in bed in no acute distress off BiPAP therapy with a heart rate of 100 bpm with telemetry showing atrial fibrillation. CTA of the chest shows left lower lobe and right middle lobe pulmonary emboli with chest x-ray showing evidence of pulmonary edema with a mildly elevated BNP of 522. IV Lasix was given with over 7 L of urine output. CT scans of the abdomen showed evidence of celiac artery stenosis but no associated abdominal pain or weight loss per patient. Cardiology consulted for further evaluation. Troponins showed a very mild plateau of 0.07. Initial EKG shows sinus rhythm at 88 bpm with incomplete right bundle branch block borderline left axis deviation and nonspecific ST-T abnormalities in the lateral leads. [facility] Disclaimer: The information contained in this section may have been updated after the patient was seen, as this information can be updated by other users. Medical History Wound of left lower extremity HLD (hyperlipidemia) HHD (hypertensive heart disease) CAD (coronary artery disease) Obesity Social History Smoking Status: Never smoker alcohol intake: never substance use type: denies use current occupational status: other Travel in the last 8 weeks?: Inside the [place] household members: spouse and family housing: house current occupation: farm/ house work current occupational exposures/hazards: No Have you lived/traveled outside [place] in past 30 days?: No Contact w/someone who lives/traveled outside [place] past 30 days?: No Exposure to someone with infectious disease in past 14 days?: No Do you have a fever (greater than 100.4 F or 38 C)?: No Have you tested positive for COVID-19?: No Exposed to someone with COVID-19 in past 14 days?: No Do you have a sore throat?: No Do you have a cough?: No Do you have any weakness?: No Do you have any diarrhea?: No Are you experiencing any unusual bleeding?: No Do you have any muscle aches/pain?: No Do you have any abdominal pain?: No Are you experiencing loss of taste or smell?: No Review of Systems Constitutional Constitutional: Reports weakness *Cardiovascular Cardiovascular: Denies chest pain and Reports dyspnea *Respiratory Respiratory: Reports cough and Reports dyspnea *Musculoskeletal Musculoskeletal: 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) *Neurologic Neurologic: 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), Reports paresthesias and Reports weakness Exam Data for Last 24 hours Vital signs and Labs for Last 24 Hours: Temp Pulse Resp BP Pulse Ox O2 Del Method O2 Flow Rate 98.6 F 100 H 16 114/56 L 94 L Nasal Cannula 2 02/02/25 08:00 02/02/25 08:00 02/02/25 08:00 02/02/25 08:00 02/02/25 08:00 02/02/25 08:00 02/02/25 08:00 FiO2 32 02/01/25 18:40 Laboratory Results - last 24 hr 02/01/25 09:56: POC Glucose 379 H* 02/01/25 10:02: Specimen Source Right radial, O2 % 6l, ABG pH 7.33 L, ABG pCO2 53.3 H, ABG pO2 56.2 L, ABG HCO3 27.5 H, ABG Total CO2 29.2 H, ABG O2 Saturation 87 L*, ABG Base Excess 0.5, [place] Test Acceptable 02/01/25 10:05: WBC 36.3 H* D, RBC 5.39 D, Hgb 15.4 D, Hct 48.6 H, MCV 90.2, MCH 28.6, MCHC 31.7 L, RDW 12.8, Plt Count 442 H D, MPV 9.3, Neut % (Auto) 48.9, Lymph % (Auto) 41.5, [place] % (Auto) 7.4, Eos % (Auto) 0.8, Baso % (Auto) 0.5, Neut # (Auto) 17.8 H, Lymph # (Auto) 15.1 H, [place] # (Auto) 2.7 H, Eos # (Auto) 0.3, Baso # (Auto) 0.2, Total Counted 100, Neutrophils % (Manual) 57, Lymphocytes % (Manual) 40, Monocytes % (Manual) 2, Eosinophils % (Manual) 1, Platelet Estimate Slight increase, RBC Morphology Normal, APTT 50.2, Sodium 136, Potassium 4.3 D, Chloride 98, Carbon Dioxide 26, Anion Gap 16.3 H, BUN 13, Creatinine 0.60, Estimated Creat Clear 32, Estimated GFR 99, Est GFR ( Amer) 120, Glucose 406 H* D, Calcium 8.8, Total Bilirubin 0.5, AST 44 H, ALT 41, Alkaline Phosphatase 128 H, Troponin I 0.05 H, Total Protein 7.7, Albumin 3.7, Globulin 4.0 H, Albumin/Globulin Ratio 0.9 L 02/01/25 11:12: POC Glucose 437 H* 02/01/25 13:33: APTT 27.9 L 02/01/25 16:07: POC Glucose 396 H* 02/01/25 20:33: POC Glucose 459 H* 02/02/25 05:49: POC Glucose 409 H* 02/02/25 07:35: WBC 24.4 H* D, RBC 4.51, Hgb 13.4 D, Hct 39.1, MCV 86.7, MCH 29.7, MCHC 34.3, RDW 12.6, Plt Count 377, MPV 8.9, Neut % (Auto) 80.1 H, Lymph % (Auto) 13.1, [place] % (Auto) 6.1, Eos % (Auto) 0.0 L, Baso % (Auto) 0.2, Neut # (Auto) 19.5 H, Lymph # (Auto) 3.2, [place] # (Auto) 1.5 H, Eos # (Auto) 0.0, Baso # (Auto) 0.1, Sodium 135 L, Potassium 3.5, Chloride 95 L, Carbon Dioxide 33 H, Anion Gap 10.5, BUN 22 H D, Creatinine 0.60, Estimated Creat Clear 32, Estimated GFR 99, Est GFR ( Amer) 120, Glucose 475 H*, Calcium 8.3 L, Magnesium 2.0 D, Total Bilirubin 0.4, AST 125 H D, ALT 54 D, Alkaline Phosphatase 99, Total Protein 7.4, Albumin 3.4 L, Globulin 4.0 H, Albumin/Globulin Ratio 0.9 L, Vancomycin Trough < 5.0 L I & O for Last 24 hours: Intake & Output 01/30/25 01/31/25 02/01/25 02/02/25 11:59 11:59 11:59 11:59 Intake Total 360 / 360 1115 / 1115 Output Total 8050 / 8050 4200 / 4200 Balance -7690 / -7690 -3085 / -3085 Weight 236 lb 5.369 oz 226 lb Microbiology Reports for the Last 24 Hours: Microbiology 01/31/25 17:34 Foot,Right Gram Stain - Final 01/31/25 17:34 Foot,Right Wound Culture - Preliminary Gram Negative Rods Gram Negative Rods#2 Gram Negative Rods#3 01/31/25 15:47 Blood Blood Culture - Preliminary NO GROWTH AFTER 24 HOURS 01/31/25 15:55 Blood Blood Culture - Preliminary NO GROWTH AFTER 24 HOURS Constitutional Constitutional: no acute distress *Routine Respiratory Exam Respiratory: Present decreased breath sounds and diminished air movement; Absent wheezes *Routine Cardiovascular Exam Cardiovascular: Present murmur and irregularly irregular; Absent gallop or rubs *Routine Extremities Exam Extremities: Present edema Meds Home Medications and Allergies Home Medications ?Medication ?Instructions ?Recorded ?Confirmed ?Type metformin 500 mg tablet,extended 500 mg PO BID Diabetes 10/28/22 01/31/25 History release 24 hr bisoprolol fumarate 5 mg tablet 5 mg PO DAILY #30 tabs 01/29/23 01/31/25 Rx lisinopril 5 mg tablet 5 mg PO DAILY #30 tabs 01/29/23 01/31/25 Rx cephalexin 500 mg capsule 500 mg PO BID 01/31/25 01/31/25 History New Prescriptions to Start Prescriptions: Allergies Allergy/AdvReac Type Severity Reaction Status Date / Time No Known Allergies Allergy Verified 02/21/19 09:16 Assessment and Plan *Assessment and plan (1) Pulmonary emboli: Status: Acute Qualifiers: Pulmonary embolism type: multiple subsegmental (without acute cor pulmonale) Qualified Code(s): I26.94 - Multiple subsegmental thrombotic pulmonary emboli without acute cor pulmonale Category: Medical Code(s): I26.99 - Other pulmonary embolism without acute cor pulmonale (2) Deep vein thrombosis (DVT) of right posterior tibial vein: Status: Acute Category: Medical Code(s): I82.441 - Acute embolism and thrombosis of right tibial vein (3) Cellulitis of right foot: Status: Acute Category: Medical Code(s): L03.115 - Cellulitis of right lower limb (4) Diabetes mellitus with diabetic neuropathy: Status: Acute Qualifiers: Diabetes mellitus crop specialist insulin use: with crop specialist use Diabetes mellitus type: type 2 Qualified Code(s): E11.40 - Type 2 diabetes mellitus with diabetic neuropathy, unspecified; Z79.4 - long-term (current) use of insulin Category: Medical Code(s): E11.40 - Type 2 diabetes mellitus with diabetic neuropathy, unspecified (5) CAD (coronary artery disease): Status: Chronic Qualifiers: Associated angina: without angina Coronary Disease-Associated Artery/Lesion type: [place] artery [place] vs. transplanted heart: [place] heart Qualified Code(s): I25.10 - Atherosclerotic heart disease of [place] coronary artery without angina pectoris Category: Medical Code(s): I25.10 - Atherosclerotic heart disease of [place] coronary artery without angina pectoris (6) HHD (hypertensive heart disease): Status: Chronic Qualifiers: Heart failure presence: without heart failure Qualified Code(s): I11.9 - Hypertensive heart disease without heart failure Category: Medical Code(s): I11.9 - Hypertensive heart disease without heart failure (7) HLD (hyperlipidemia): Status: Chronic Qualifiers: Hyperlipidemia type: unspecified Qualified Code(s): E78.5 - Hyperlipidemia, unspecified Category: Medical Code(s): E78.5 - Hyperlipidemia, unspecified (8) Obesity: Status: Chronic Qualifiers: Body mass index: BMI 34.0-34.9 Obesity classification: adult class 1 (BMI 30 - 34.9) Obesity type: due to excess calories Serious obesity comorbidity presence: with serious comorbidity Qualified Code(s): E66.09 - Other obesity due to excess calories; Z68.34 - Body mass index (BMI) 34.0-34.9, adult Category: Medical Code(s): E66.9 - Obesity, unspecified Plan 1. RLE DVT with bilateral Pulmonary Emboli -IV heparin Switched to Lovenox 2. Cellulitis R foot with known PVD (bilateral dorsalis pedis arteries and left posterior tibial arteries) -IV Abx -Podiatry consulted 3. A. fib with RVR -related to bilateral PE's with possible infection -On metoprolol and lovenox 4. DM -on insulin 5. CAD with prior SHANNAN (2018) -declined CABG in past -trops mildly elevated here -check echo -on aspirin 6. HLD -on statin 7. Obesity 8. HTN -on irbesartan, metoprolol 9. Edema -on lasix and spironolactone 10. 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 Calcifications of thyroid on chest CTA -ultrasound recommended No plans for invasive procedures from cardiology standpoint Check echo (shows normal LVEF, no significant valve disease, mild RV dilation and mild reduced function) Adjust meds pending above results. If no plans for surgery then switch lovenox to either Xarelto or Eliquis.
[2025-02-02] MEDS: INSULIN GLARGINE 100 UNITS/ML 3ML FLEXPEN 20 UNIT SUBCUT ×2 (09:19→16:51)
[2025-02-02] MEDS: ENOXAPARIN 120MG/0.8ML SYRINGE 105 MG SUBCUT (09:20)
[2025-02-02] MEDS: VANCOMYCIN/WATER FOR INJ (PEG) 1.75 GM/350 ML PIGGYBACK IV (09:21)
[2025-02-02] MEDS: IRBESARTAN 75MG TABLET 75 MG PO (09:22)
[2025-02-02] MEDS: ASPIRIN EC 81MG TABLET 81 MG PO (09:22)
[2025-02-02] MEDS: SPIRONOLACTONE 25MG TABLET 50 MG PO (09:22)
[2025-02-02] MEDS: FUROSEMIDE 40MG/4ML VIAL 80 MG IV ×2 (09:22→16:53)
[2025-02-02] MEDS: METOPROLOL TARTRATE 25MG TABLET 12.5 MG PO ×2 (09:23→20:14)
--- NOTE | 2025-02-02 09:54 | P.CONS_ITS ---
History of Present Illness History of present illness: Mr. Lynn is a 69 Y/o F with reported medical history of CAD, hypertension, hyperlipidemia, T2DM, prior CVA presented today with worsening respiratory disease bilateral lower extremity edema pulmonary was called for further evaluation and management. No significant smoking history or secondhand smoke exposure. Denies any baseline respiratory symptoms. Never used any inhalers or oxygen supplementation [facility] Disclaimer: The information contained in this section may have been updated after the patient was seen, as this information can be updated by other users. Medical History Wound of left lower extremity HLD (hyperlipidemia) HHD (hypertensive heart disease) CAD (coronary artery disease) Obesity Social History Smoking Status: Never smoker alcohol intake: never substance use type: denies use current occupational status: other Travel in the last 8 weeks?: Inside the [place] household members: spouse and family housing: house current occupation: farm/ house work current occupational exposures/hazards: No Have you lived/traveled outside [place] in past 30 days?: No Contact w/someone who lives/traveled outside US past 30 days?: No Exposure to someone with infectious disease in past 14 days?: No Do you have a fever (greater than 100.4 F or 38 C)?: No Have you tested positive for COVID-19?: No Exposed to someone with COVID-19 in past 14 days?: No Do you have a sore throat?: No Do you have a cough?: No Do you have any weakness?: No Do you have any diarrhea?: No Are you experiencing any unusual bleeding?: No Do you have any muscle aches/pain?: No Do you have any abdominal pain?: No Are you experiencing loss of taste or smell?: No Review of Systems Constitutional Constitutional: Reports fatigue, Reports lethargy and Reports weakness Eyes Eyes: Denies eye discharge, Denies dry eyes, Denies irritation and Denies itchy eyes ENT Ears, Nose, Mouth, and Throat: Denies epistaxis, Denies facial pain, Denies lip swelling and Denies throat swelling *Cardiovascular Cardiovascular: Reports dyspnea and Reports dyspnea on exertion *Respiratory Respiratory: Denies change in phlegm color, Reports chest congestion, Reports cough, Reports dyspnea, Reports dyspnea on exertion, Denies excessive phlegm production, Denies hemoptysis, Denies pain on inspiration, Denies pain with cough and Denies wheezing *Gastrointestinal Gastrointestinal: Denies abdominal pain, Denies belching and Denies cramping *Musculoskeletal Musculoskeletal: Reports back pain and 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) *Neurologic Neurologic: 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), Reports paresthesias and Reports weakness Psychiatric Psychiatric: Denies homicidal ideation and Denies suicidal ideation Endocrine Endocrine: Reports fatigue and Denies heat intolerance Hematologic/Lymphatic Hematologic/Lymphatic: Denies easy bleeding and Denies lymphadenopathy Allergic/Immunologic Allergic/Immunologic: Denies itchy eyes, Denies lip swelling, Denies throat swelling and Denies wheezing Pulmonology Exam Inpatient Vital signs and Labs for Last 24 Hours: Temp Pulse Resp BP Pulse Ox O2 Del Method O2 Flow Rate 98.6 F 100 H 16 114/56 L 94 L Nasal Cannula 3 02/02/25 08:00 02/02/25 08:00 02/02/25 08:00 02/02/25 08:00 02/02/25 08:00 02/02/25 09:00 02/02/25 09:00 FiO2 32 02/01/25 18:40 Laboratory Results - last 24 hr 02/01/25 09:56: POC Glucose 379 H* 02/01/25 10:02: Specimen Source Right radial, O2 % 6l, ABG pH 7.33 L, ABG pCO2 53.3 H, ABG pO2 56.2 L, ABG HCO3 27.5 H, ABG Total CO2 29.2 H, ABG O2 Saturation 87 L*, ABG Base Excess 0.5, Uzair Test Acceptable 02/01/25 10:05: WBC 36.3 H* D, RBC 5.39 D, Hgb 15.4 D, Hct 48.6 H, MCV 90.2, MCH 28.6, MCHC 31.7 L, RDW 12.8, Plt Count 442 H D, MPV 9.3, Neut % (Auto) 48.9, Lymph % (Auto) 41.5, Hardin % (Auto) 7.4, Eos % (Auto) 0.8, Baso % (Auto) 0.5, N eut # (Auto) 17.8 H, Lymph # (Auto) 15.1 H, Hardin # (Auto) 2.7 H, Eos # (Auto) 0.3, Baso # (Auto) 0.2, Total Counted 100, Neutrophils % (Manual) 57, Lymphocytes % (Manual) 40, Monocytes % (Manual) 2, Eosinophils % (Manual) 1, Platelet Estimate Slight increase, RBC Morphology Normal, APTT 50.2, Sodium 136, Potassium 4.3 D, Chloride 98, Carbon Dioxide 26, Anion Gap 16.3 H, BUN 13, Creatinine 0.60, Estimated Creat Clear 32, Estimated GFR 99, Est GFR ( Amer) 120, Glucose 406 H* D, Calcium 8.8, Total Bilirubin 0.5, AST 44 H, ALT 41, Alkaline Phosphatase 128 H, Troponin I 0.05 H, Total Protein 7.7, Albumin 3.7, G lobulin 4.0 H, Albumin/Globulin Ratio 0.9 L 02/01/25 11:12: POC Glucose 437 H* 02/01/25 13:33: APTT 27.9 L 02/01/25 16:07: POC Glucose 396 H* 02/01/25 20:33: POC Glucose 459 H* 02/02/25 05:49: POC Glucose 409 H* 02/02/25 07:35: WBC 24.4 H* D, RBC 4.51, Hgb 13.4 D, Hct 39.1, MCV 86.7, MCH 29.7, MCHC 34.3, RDW 12.6, Plt Count 377, MPV 8.9, Neut % (Auto) 80.1 H, Lymph % (Auto) 13.1, Hardin % (Auto) 6.1, Eos % (Auto) 0.0 L, Baso % (Auto) 0.2, Neut # (Auto) 19.5 H, Lymph # (Auto) 3.2, Hardin # (Auto) 1.5 H, Eos # (Auto) 0.0, Baso # (Auto) 0.1, Sodium 135 L, Potassium 3.5, Chloride 95 L, Carbon Dioxide 33 H, Anion Gap 10.5, BUN 22 H D, Creatinine 0.60, Estimated Creat Clear 32, Estimated GFR 99, Est GFR ( Amer) 120, Glucose 475 H*, Calcium 8.3 L, Magnesium 2.0 D, Total Bilirubin 0.4, AST 125 H D, ALT 54 D, Alkaline Phosphatase 99, Total Protein 7.4, Albumin 3.4 L, Globulin 4.0 H, Albumin/Globulin Ratio 0.9 L, V ancomycin Trough < 5.0 L I & O for Labs for Last 24 Hours: Intake & Output 01/30/25 01/31/25 02/01/25 02/02/25 23:59 23:59 23:59 23:59 Intake Total 1040 / 1195 435 / 435 Output Total 5800 / 5800 5550 / 5550 900 / 900 Balance -5800 / -5800 -4510 / -4355 -465 / -465 Weight 190 lb 229 lb 2 oz 226 lb Microbiology Reports for the Last 24 Hours: Microbiology 01/31/25 17:34 Foot,Right Gram Stain - Final 01/31/25 17:34 Foot,Right Wound Culture - Preliminary Gram Negative Rods Gram Negative Rods#2 Gram Negative Rods#3 01/31/25 15:47 Blood Blood Culture - Preliminary NO GROWTH AFTER 24 HOURS 01/31/25 15:55 Blood Blood Culture - Preliminary NO GROWTH AFTER 24 HOURS Constitutional: Present moderate distress Head: Present normocephalic and atraumatic ENT: Present normal exam, normal oropharynx and mucous membranes moist Neck: Present normal inspection and full ROM Respiratory: Present respiratory distress, crackles and able to speak in complete sentences; Absent prolonged expiratory phase or wheezes Cardiac: Present S1/S2, Tachycardia and radial pulses present GI: Present soft and distention; Absent tenderness or guarding Rectal (female): Present deferred (female): Present deferred Skin: Present intact; Absent cyanosis or jaundice Neuro: Present alert, awake and oriented x 3 Extremities: Present normal inspection; Absent clubbing or cyanosis Psychiatric: Present normal affect and cooperative Meds Home Medications and Allergies Home Medications ?Medication ?Instructions ?Recorded ?Confirmed ?Type metformin 500 mg tablet,extended 500 mg PO BID Diabete s 10/28/22 01/31/25 History release 24 hr bisoprolol fumarate 5 mg tablet 5 mg PO DAILY #30 tabs 01/29/23 01/31/25 Rx lisinopril 5 mg tablet 5 mg PO DAILY #30 tabs 01/2901/31/25 Rx cephalexin 500 mg capsule 500 mg PO BID 01/31/2501/31 History New Prescriptions to Start Prescriptions: Allergies Allergy/AdvReac Type Severity Reaction Status Date / Time No Known Allergies Allergy Verified 02/21/19 09:16 Results Laboratory Findings 02/02/25 07:35 02/02/25 07:35 ABG ABG pH 7.33 mmol/L (7.35-7.45) L 02/01/25 10:02 ABG pCO2 53.3 mmhg (35.0-45.0) H 02/01/25 10:02 ABG pO2 56.2 mmhg (80-100) L 02/01/25 10:02 ABG O2 Saturation 87 % (90-100) L* 02/01/25 10:02 PT/INR, D-dimer PT 11.4 seconds (10.1-12.5) 01/31/25 16:20 INR 1.03 (0.9-1.1) 01/31/25 16:20 D-Dimer 1.25 ug/mL (0.0-0.5) H 01/31/25 16:20 Abnormal lab findings: Abnormal Labs 01/31/25 01/31/25 01/31/25 15:47 15:59 16:20 WBC 18.2 H Hct MCHC Plt Count Neut % (Auto) Eos % (Auto) Neut # (Auto) 13.3 H Lymph # (Auto) Hardin # (Auto) 1.2 H ESR 58 H APTT D-Dimer 1.25 H ABG pH ABG pCO2 ABG pO2 ABG HCO3 ABG Total CO2 ABG O2 Saturation VBG pH 7.49 H VBG pO2 114.7 H VBG O2 Saturation 98.8 H VBG Base Excess 2.6 H VBG Lactic Acid 2.1 H Sodium 132 L Potassium Chloride Carbon Dioxide Anion Gap BUN Creatinine 0.50 L Glucose 316 H POC Glucose Hemoglobin A1c 11.9 H Calcium Magnesium AST 39 H Alkaline Phosphatase Troponin I C-Reactive Protein 67.8 H NT-Pro-B Natriuret Pep 522 H Albumin 3.4 L Globulin 3.7 H Albumin/Globulin Ratio 0.9 L Triglycerides LDL Cholesterol Direct HDL Cholesterol Cholesterol/HDL Ratio Vancomycin Trough 01/31/25 01/31/25 01/31/25 16:25 18:27 21:21 WBC Hct MCHC Plt Count Neut % (Auto) Eos % (Auto) Neut # (Auto) Lymph # (Auto) Hardin # (Auto) ESR APTT 24.9 L D-Dimer ABG pH ABG pCO2 ABG pO2 ABG HCO3 ABG Total CO2 ABG O2 Saturation VBG pH VBG pO2 VBG O2 Saturation VBG Base Excess VBG Lactic Acid Sodium Potassium Chloride Carbon Dioxide Anion Gap BUN Creatinine Glucose POC Glucose Hemoglobin A1c Calcium Magnesium AST Alkaline Phosphatase Troponin I 0.04 H 0.07 H C-Reactive Protein NT-Pro-B Natriuret Pep Albumin Globulin Albumin/Globulin Ratio Triglycerides LDL Cholesterol Direct HDL Cholesterol Cholesterol/HDL Ratio Vancomycin Trough 01/31/25 01/31/25 02/01/25 22:20 23:42 01:26 WBC Hct MCHC Plt Count Neut % (Auto) Eos % (Auto) Neut # (Auto) Lymph # (Auto) Hardin # (Auto) ESR APTT 36.2 L 31.5 L D-Dimer ABG pH ABG pCO2 ABG pO2 ABG HCO3 ABG Total CO2 ABG O2 Saturation VBG pH VBG pO2 VBG O2 Saturation VBG Base Excess VBG Lactic Acid Sodium Potassium Chloride Carbon Dioxide Anion Gap BUN Creatinine Glucose POC Glucose 323 H* Hemoglobin A1c Calcium Magnesium AST Alkaline Phosphatase Troponin I 0.07 H C-Reactive Protein NT-Pro-B Natriuret Pep Albumin Globulin Albumin/Globulin Ratio Triglycerides LDL Cholesterol Direct HDL Cholesterol Cholesterol/HDL Ratio Vancomycin Trough 02/01/25 02/01/25 02/01/25 05:17 06:10 09:56 WBC 17.4 H Hct MCHC Plt Count Neut % (Auto) Eos % (Auto) Neut # (Auto) 11.7 H Lymph # (Auto) Hardin # (Auto) 1.3 H ESR APTT 46.7 L D-Dimer ABG pH ABG pCO2 ABG pO2 ABG HCO3 ABG Total CO2 ABG O2 Saturation VBG pH VBG pO2 VBG O2 Saturation VBG Base Excess VBG Lactic Acid Sodium 134 L Potassium 3.4 L Chloride Carbon Dioxide Anion Gap 3.4 L BUN Creatinine 0.50 L Glucose 326 H POC Glucose 355 H* 379 H* Hemoglobin A1c Calcium 8.3 L Magnesium 2.4 H D AST Alkaline Phosphatase Troponin I C-Reactive Protein NT-Pro-B Natriuret Pep Albumin Globulin Albumin/Globulin Ratio Triglycerides 161 H LDL Cholesterol Direct 83.76 L HDL Cholesterol 30 L Cholesterol/HDL Ratio 5.2 H Vancomycin Trough 02/01/25 02/01/25 02/01/25 10:02 10:05 11:12 WBC 36.3 H* D Hct 48.6 H MCHC 31.7 L Plt Count 442 H D Neut % (Auto) Eos % (Auto) Neut # (Auto) 17.8 H Lymph # (Auto) 15.1 H Hardin # (Auto) 2.7 H ESR APTT D-Dimer ABG pH 7.33 L ABG pCO2 53.3 H ABG pO2 56.2 L ABG HCO3 27.5 H ABG Total CO2 29.2 H ABG O2 Saturation 87 L* VBG pH VBG pO2 VBG O2 Saturation VBG Base Excess VBG Lactic Acid Sodium Potassium Chloride Carbon Dioxide Anion Gap 16.3 H BUN Creatinine Glucose 406 H* D POC Glucose 437 H* Hemoglobin A1c Calcium Magnesium AST 44 H Alkaline Phosphatase 128 H Troponin I 0.05 H C-Reactive Protein NT-Pro-B Natriuret Pep Albumin Globulin 4.0 H Albumin/Globulin Ratio 0.9 L Triglycerides LDL Cholesterol Direct HDL Cholesterol Cholesterol/HDL Ratio Vancomycin Trough 02/01/25 02/01/25 02/01/25 13:33 16:07 20:33 WBC Hct MCHC Plt Count Neut % (Auto) Eos % (Auto) Neut # (Auto) Lymph # (Auto) Hardin # (Auto) ESR APTT 27.9 L D-Dimer ABG pH ABG pCO2 ABG pO2 ABG HCO3 ABG Total CO2 ABG O2 Saturation VBG pH VBG pO2 VBG O2 Saturation VBG Base Excess VBG Lactic Acid Sodium Potassium Chloride Carbon Dioxide Anion Gap BUN Creatinine Glucose POC Glucose 396 H* 459 H* Hemoglobin A1c Calcium Magnesium AST Alkaline Phosphatase Troponin I C-Reactive Protein NT-Pro-B Natriuret Pep Albumin Globulin Albumin/Globulin Ratio Triglycerides LDL Cholesterol Direct HDL Cholesterol Cholesterol/HDL Ratio Vancomycin Trough 02/02/25 02/02/25 05:49 07:35 WBC 24.4 H* D Hct MCHC Plt Count Neut % (Auto) 80.1 H Eos % (Auto) 0.0 L Neut # (Auto) 19.5 H Lymph # (Auto) Hardin # (Auto) 1.5 H ESR APTT D-Dimer ABG pH ABG pCO2 ABG pO2 ABG HCO3 ABG Total CO2 ABG O2 Saturation VBG pH VBG pO2 VBG O2 Saturation VBG Base Excess VBG Lactic Acid Sodium 135 L Potassium Chloride 95 L Carbon Dioxide 33 H Anion Gap BUN 22 H D Creatinine Glucose 475 H* POC Glucose 409 H* Hemoglobin A1c Calcium 8.3 L Magnesium AST 125 H D Alkaline Phosphatase Troponin I C-Reactive Protein NT-Pro-B Natriuret Pep Albumin 3.4 L Globulin 4.0 H Albumin/Globulin Ratio 0.9 L Triglycerides LDL Cholesterol Direct HDL Cholesterol Cholesterol/HDL Ratio Vancomycin Trough < 5.0 L Assessment and Plan *Assessment and plan (1) Deep vein thrombosis (DVT) of right posterior tibial vein: Status: Acute Category: Medical Code(s): I82.441 - Acute embolism and thrombosis of right tibial vein (2) Pulmonary emboli: Status: Acute Qualifiers: Pulmonary embolism type: multiple subsegmental (without acute cor pulmonale) Qualified Code(s): I26.94 - Multiple subsegmental thrombotic pulmonary emboli without acute cor pulmonale Category: Medical Code(s): I26.99 - Other pulmonary embolism without acute cor pulmonale Plan Mr. Lynn is a 69 Y/o F with reported medical history of CAD, hypertension, hyperlipidemia, T2DM, prior CVA presented today with worsening respiratory disease bilateral lower extremity edema pulmonary was called for further evaluation and management. No significant smoking history or secondhand smoke exposure. Denies any baseline respiratory symptoms. Never used any inhalers or oxygen supplementation CTA PE upon admission showed bilateral segmental and subsegmental pulmonary embolism. No dense consolidative/airspace changes. No significant pleural effusions. Right lower lobe pleural-based nodule. CT abdomen celiac trunk stenosis. Concerning occlusion of the left dorsalis pedis artery with filling defects tibial and dorsalis pedis artery left. Concerning soft tissue cellulitis pannus, right calf Significant neutrophilic predominant leukocytosis improving. Wound culture gram-negative rods. Final speciation pending. On broad-spectrum antibiotics including vancomycin and cefepime. Plan: DuoNebs 4 times daily as needed Oxygen supplementation only as needed to maintain O2 saturation of 90% open Continue full dose anticoagulation for the noted DVT PE Follow with cardiology and podiatric recommendations. Broad-spectrum antibiotics pending culture results for the noted cellulitis
--- NOTE | 2025-02-02 10:12 | [facility].PTEV ---
Physical Therapy Evaluation Rehab PT IP Evaluation Start: 02/02/25 08:54 Freq: ONCE Status: Active Protocol: Document 02/02/25 09:44 EMMA (Rec: 02/02/25 10:11 EMMA [id number]) Subjective/History History History Per H&P: This is a 69-year-old female with past medical history of CAD, hypertension, hyperlipidemia, T2DM, prior CVA who presents emergency department today with complaints of shortness of breath and bilateral lower extremity edema. She also reports a wound on her fifth digit of her right foot. She reports that she has had swelling for some time but it has been getting worse over the last 3 days. She was put on Lasix by her primary care provider. Despite taking the Lasix she has had increased shortness of breath and swelling. With regards to the wound she states that she did not notice the wound until today. Denies any fever. Denies any chest pain. Emergency department workup notable for cellulitis versus gangrene to the right lower extremity. CTA chest abdomen pelvis obtained and notable for pulmonary emboli within the subsegmental artery to the left lower lobe and right middle lobe. 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 Right dorsalis pedis artery not well-seen and could be occluded as well as the left dorsalis pedis artery. Also notable to have mid posterior tibial artery filling defect which could represent tiny blood clots Laboratory evaluation notable for leukocytosis with a white count of 18, elevated ESR of 58, glucose of 316, A1c of 11.9, troponin of 0.02 with uptrend to 0.04, CRP of 67 Dr Carpio was consulted with podiatry and recommended transfer initially. Transfer attempted by ED provider at . states the patient likely can go home with treatment for cellulitis but given patient's vascular disease and pulmonary emboli it was felt that she would benefit from hospitalization. After multiple discussions with the ED provider and family, family wishes to be admitted here or discharged home. Does not want transfer to any other facility. States that they are happy with the care they are receiving here. ER provider did inform them that vascular surgery was probably the best option for salvage care of the foot. They are understanding that the best course of treatment would likely be vascular surgery but would like to be admitted here for IV antibiotics and blood thinners until they can have a more lengthy family discussion on goals of care. Patient is in agreement to this. Dr. Rangel was consulted at the time of decision to stay here at this facility and will be happy to consult on Sunday for consult for possible revascularization. Dr. Carpio also notified of patient 's admission here to this hospital. Subjective Subjective PLOF: Small amount of ambulation with B platform RW. However, pt has declined to using w/c as primary mode of mobility for past 2 weeks. Requires 1-2 person assist. Home: Single-story home. Owns a hospital bed, mechanical lift, BSC, w/c, and RW. Available assistance: Family able to assist with supervision and physically as needed 05/03. New diagnosis of No cancer in past 12 months? [facility] How much help from another person do you currently need... Turning from your A lot back to your side while in a flat bed without using bedrails? Moving from lying on A lot back to sitting on the side of a flat bed without using bedrails? Moving to and from a A lot bed to a chair ( including a wheelchair)? Standing up from a A lot chair using your arms? (e.g., wheelchair, bedside chair) Walking in hospital A lot room? Climbing 3-5 steps Total with a railing? Mobility Score 11 Mobility Level [facility] Mobility 4 Move to chair/commode Mobility Calculator Rehab PT IP Eval Objective Appearance Patient Behavior Appropriate Patient Orientation Person,Place Difficulty following none instructions Speech Pattern Clear Ambulation Patient Able to No Ambulate Balance Ability to Arise Able, uses arms to help Sitting Balance Leans or slides in chair Standing Balance Unsteady Transfers Bed Transfer Ability Moderate x 2 (50% assist) Sit to Stand Bed Moderate x 2 (50% assist) Transfer Ability Rehab PT IP prob,goals,plan Problems Date of Evaluation: 02/02/25 PT IP Problems Bed Mobility,Transfers,Gait,Balance,Self care,Safety Rehab Potential Rehab Potential Good Plan PT Intervention Plan Bed Mobility,Transfers,Gait,Balance,Self care,Safety, Therapeutic Exercise Other Intervention 1-2 times Plan PT Plan Frequency Daily Duration LOS Discharge Goals Bed Transfer Ability Moderate x 1 (50% assist) Sit to Stand Chair Moderate x 1 (50% assist) Transfer Ability Discharge Plan PT Discharge Plan Initial physical therapy evaluation performed. Patient presents below baseline at this time in functional mobility, transfers, and strength. PT recommending short-term rehabilitation stay upon d/c from [facility]. Pt would benefit from skilled PT while at [facility] to prevent further functional decline and maximize safety with mobility. If family is not agreeable to rehabilitation placement, pt may be safe to d/c home with assistance as needed by family and PT services. Eval Complexity Eval Charge Codes 13775 - Moderate Complexity PHYSICIAN CERTIFICATION: I certify the specified therapy services for Gloria Lynn are required, authorized, and reviewed every 30 days.
[2025-02-02 10:23] LABS: Adenovirus,PCR Not Detected (NotDetected); Bordetella Pertussis Not Detected (NotDetected); Chlamydophila Pneumoniae, PCR Not Detected (NotDetected); Coronavirus 19, PCR Not Detected (NotDetected); Coronavirus 229E Not Detected (NotDetected); Coronavirus NL63 Not Detected (NotDetected); Coronavirus OC43 Not Detected (NotDetected); Coronovirus HKU1,PCR Not Detected (NotDetected); Human Metapneumovirus Not Detected (NotDetected); Influenza A, PCR Not Detected (NotDetected); Influenza AH1, 2009 Not Detected (NotDetected); Influenza AH1, PCR Not Detected (NotDetected); Influenza AH3,PCR Not Detected (NotDetected); Influenza B, PCR Not Detected (NotDetected); Mycoplasma Pneumoniae, PCR Not Detected (NotDetected); Parainfluenza 1, PCR Not Detected (NotDetected); Parainfluenza 2, PCR Not Detected (NotDetected); Parainfluenza 3, PCR Not Detected (NotDetected); Parainfluenza 4, PCR Not Detected (NotDetected); Respiratory Syncytial Virus Not Detected (NotDetected); Rhinovirus/Enterovirus Not Detected (NotDetected)
[2025-02-02] MEDS: CEFEPIME HCL 1 GM in 0.9 % SODIUM CHLORIDE 50 ML IV ×2 (11:13→21:15)
[2025-02-02 11:23] LABS: POC Glucose,Bedside 412 (70-110)
--- NOTE | 2025-02-02 11:30 | HMH.OTEV ---
OT Inpatient Evaluation Rehab OT IP Evaluation Start: 02/02/25 08:54 Freq: ONCE Status: Active Protocol: Document 02/02/25 11:23 CHARLEE (Rec: 02/02/25 11:30 CHARLEE [id number]) Rehab OT IP Assessment Subjective History PER H&P: This is a 69-year-old female with past medical history of CAD, hypertension, hyperlipidemia, T2DM, prior CVA who presents emergency department today with complaints of shortness of breath and bilateral lower extremity edema. She also reports a wound on her fifth digit of her right foot. She reports that she has had swelling for some time but it has been getting worse over the last 3 days. She was put on Lasix by her primary care provider. Despite taking the Lasix she has had increased shortness of breath and swelling. With regards to the wound she states that she did not notice the wound until today. Denies any fever. Denies any chest pain. Emergency department workup notable for cellulitis versus gangrene to the right lower extremity. CTA chest abdomen pelvis obtained and notable for pulmonary emboli within the subsegmental artery to the left lower lobe and right middle lobe. 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 Right dorsalis pedis artery not well-seen and could be occluded as well as the left dorsalis pedis artery. Also notable to have mid posterior tibial artery filling defect which could represent tiny blood clots Laboratory evaluation notable for leukocytosis with a white count of 18, elevated ESR of 58, glucose of 316, A1c of 11.9, troponin of 0.02 with uptrend to 0.04, CRP of 67 Dr Carpio was consulted with podiatry and recommended transfer initially. Transfer attempted by ED provider at . states the patient likely can go home with treatment for cellulitis but given patient's vascular disease and pulmonary emboli it was felt that she would benefit from hospitalization. After multiple discussions with the ED provider and family, family wishes to be admitted here or discharged home. Does not want transfer to any other facility. States that they are happy with the care they are receiving here. ER provider did inform them that vascular surgery was probably the best option for salvage care of the foot. They are understanding that the best course of treatment would likely be vascular surgery but would like to be admitted here for IV antibiotics and blood thinners until they can have a more lengthy family discussion on goals of care. Patient is in agreement to this. Dr. Rangel was consulted at the time of decision to stay here at this facility and will be happy to consult on Sunday for consult for possible revascularization. Dr. Carpio also notified of patient 's admission here to this hospital. Subjective I do okay. Pt supine in bed when therapy arrived. Family present. Pt agreed to complete initial OT eval. Pt PLOF: Small amount of functional mobility with B platform RW. However, pt has declined to using w/c as primary mode of mobility for past 2 weeks. Requires 1-2 person assist. Home: Single-story home. Owns a hospital bed, mechanical lift, BSC, w/c, and RW. Available assistance: Family able to assist with supervision and physically as needed 05/03. Pt reported they need assist with IADLs and ADLs. Pt reports they have bedside commode. reports he helps with sponge baths. Pt reports they had a stroke 2 yrs ago and primarily have L side weakness in L UE and L LB. Pt agreed to sit on EOB. Pt Max A x2 to move from supine to EOB. Pt demo good static sitting balance for 1 minute. Pt then max A x2 to move from EOB to supine in bed. Pt able to assist with scooting LB to sit up in bed. Pt left with call light and all other needs within reach and family present. Objective Patient Orientation Person,Place,Birthday Right Upper WFL Extremity Gross ROM Left Upper Extremity WFL Gross ROM Shoulder ROM Muscle Weakness Limitations Elbow ROM Muscle Weakness Limitations Bed Mobility bed mobility-scooting,bed mobility - supine/sit Assist Level Maximum x 2 (75% assist) Decrease in Yes Endurance Rehab OT IP prob,goals,plan Problems Date of Evaluation: 02/02/25 OT IP Problems Bed Mobility,Transfers,Balance,Self care,Safety Rehab Potential Rehab Potential Good Equipment Needs Assistive Devices Rolling / Wheeled Walker,Wheelchair Plan OT intervention Plan Bed Mobility,Transfers,Balance,Self care,Safety, Therapeutic Exercise OT Plan Frequency Daily Duration LOS Discharge Goals Bed Mobility Ability Assistance x1 Sit to Stand Chair Moderate x 1 (50% assist) Transfer Ability Chair Transfer Moderate x 1 (50% assist) Ability Commode/Toilet Toilet Rails,Grab Bars Transfer Assistive Devices Decrease in No Endurance Discharge Plan OT Discharge Plan Initial OT evaluation performed. Patient presents below baseline at this time in functional mobility, transfers, and strength. OT recommending short-term rehabilitation stay upon d/c from [facility]. Pt would benefit from skilled OT while at [facility] to prevent further functional decline in occupational performance. If family is not agreeable to rehabilitation placement, pt may be safe to d/c home with assistance as needed by family and OT services. Eval Complexity Eval Charge Codes 36769 - Moderate Complexity PHYSICIAN CERTIFICATION: I certify the specified therapy services for Gloria Lynn are required, authorized, and reviewed every 30 days.
--- NOTE | 2025-02-02 16:01 | P.PN_ITS ---
Subjective *Date: 02/02/25 *Time: 16:01 Interval history: Patient looks much more comfortable today, on room air now. Exam Data for Last 24 hours Vital signs and Labs for Last 24 Hours: Temp Pulse Resp BP Pulse Ox O2 Del Method O2 Flow Rate 98.6 F 98 H 22 109/55 L 91 L Room Air 3 02/02/25 08:00 02/02/25 12:00 02/02/25 12:00 02/02/25 12:00 02/02/25 12:00 02/02/25 13:00 02/02/25 09:00 FiO2 32 02/01/25 18:40 Laboratory Results - last 24 hr 02/01/25 16:07: POC Glucose 396 H* 02/01/25 20:33: POC Glucose 459 H* 02/02/25 05:49: POC Glucose 409 H* 02/02/25 07:35: WBC 24.4 H* D, RBC 4.51, Hgb 13.4 D, Hct 39.1, MCV 86.7, MCH 29.7, MCHC 34.3, RDW 12.6, Plt Count 377, MPV 8.9, Neut % (Auto) 80.1 H, Lymph % (Auto) 13.1, [place] % (Auto) 6.1, Eos % (Auto) 0.0 L, Baso % (Auto) 0.2, Neut # (Auto) 19.5 H, Lymph # (Auto) 3.2, [place] # (Auto) 1.5 H, Eos # (Auto) 0.0, Baso # (Auto) 0.1, Sodium 135 L, Potassium 3.5, Chloride 95 L, Carbon Dioxide 33 H, [place] 10.5, BUN 22 H D, Creatinine 0.60, Estimated Creat Clear 32, Estimated GFR 99, Est GFR ( Amer) 120, Glucose 475 H*, Calcium 8.3 L, Magnesium 2.0 D, Total Bilirubin 0.4, AST 125 H D, ALT 54 D, Alkaline Phosphatase 99, Total Protein 7.4, Albumin 3.4 L, Globulin 4.0 H, Albumin/Globulin Ratio 0.9 L, Vancomycin Trough < 5.0 L 02/02/25 10:13: Chlamy pneumoniae PCR Not detected, Adenovirus (PCR) Not detected, B. pertussis DNA (PCR) Not detected, Coronavirus OC43 (PCR) Not detected, Coronavirus HKU1 (PCR) Not detected, Coronavirus 229E (PCR) Not detected, SARS-CoV-2 (PCR) Not detected, Coronavirus NL63 (PCR) Not detected, Human Metapneumovir PCR Not detected, Influenza A (H1) PCR Not detected, Influ A (H1N1/09) PCR Not detected, Influenza A (H3) PCR Not detected, Influenza Type A (PCR) Not detected, Influenza Type B (PCR) Not detected, M. pneumoniae (PCR) Not detected, Parainfluenza 1 (PCR) Not detected, Parainfluenza 2 (PCR) Not detected, Parainfluenza 3 (PCR) Not detected, Parainfluenza 4 (PCR) Not detected, RSV (PCR) Not detected, Entero/Rhino (PCR) Not detected 02/02/25 11:16: POC Glucose 412 H* I & O for Last 24 hours: Intake & Output 01/30/25 01/31/25 02/01/25 02/02/25 23:59 23:59 23:59 23:59 Intake Total 1040 / 1195 805 / 805 Output Total 5800 / 5800 5550 / 5550 1900 / 1900 Balance -5800 / -5800 -4510 / -4355 -1095 / -1095 Weight 86.183 kg 103.929 kg 102 kg Microbiology Reports for the Last 24 Hours: Microbiology 01/31/25 17:34 Foot,Right Gram Stain - Final 01/31/25 17:34 Foot,Right Wound Culture - Preliminary Gram Negative Rods Gram Negative Rods#2 Gram Negative Rods#3 01/31/25 15:47 Blood Blood Culture - Preliminary NO GROWTH AFTER 24 HOURS 01/31/25 15:55 Blood Blood Culture - Preliminary NO GROWTH AFTER 24 HOURS Constitutional Constitutional: no acute distress *Routine HEENT Exam Head: Present normocephalic Eye: Present EOMI and PERRL ENT: Present mucous membranes moist *Routine Neck Exam Neck: Present supple; Absent lymphadenopathy *Routine Respiratory Exam Respiratory: Present CTA bilaterally *Routine Cardiovascular Exam Cardiovascular: Present RRR *Routine Abdominal Exam Abdominal: Present soft and normoactive bowel sounds; Absent tenderness *Routine Extremities Exam Extremities: Absent cyanosis, clubbing or edema Comments: Gangrenous right fifth toe with overlying erythema swelling. *Routine Skin Exam Skin: Present warm; Absent rash *Routine Neurological Exam Neurological: Present alert and oriented X3 Assessment and Plan *Assessment and plan (1) Pulmonary emboli: Status: Acute Qualifiers: Pulmonary embolism type: multiple subsegmental (without acute cor pulmonale) Qualified Code(s): I26.94 - Multiple subsegmental thrombotic pulmonary emboli without acute cor pulmonale Category: Medical Code(s): I26.99 - Other pulmonary embolism without acute cor pulmonale (2) Cellulitis: Status: Acute Category: Medical Code(s): L03.90 - Cellulitis, unspecified (3) Gangrene of right foot: Status: Acute Category: Medical Code(s): I96 - Gangrene, not elsewhere classified (4) Acute non-ST elevation myocardial infarction (NSTEMI): Status: Acute Category: Medical Code(s): I21.4 - Non-ST elevation (NSTEMI) myocardial infarction (5) Leukocytosis: Status: Acute Qualifiers: Leukocytosis type: unspecified Qualified Code(s): D72.829 - Elevated white blood cell count, unspecified Category: Medical Code(s): D72.829 - Elevated white blood cell count, unspecified (6) Obesity: Status: Chronic Qualifiers: Obesity type: due to excess calories Obesity classification: adult class 1 (BMI 30 - 34.9) Serious obesity comorbidity presence: with serious comorbidity Body mass index: BMI 34.0-34.9 Qualified Code(s): E66.09 - Other obesity due to excess calories; Z68.34 - Body mass index (BMI) 34.0-34.9, adult Category: Medical Code(s): E66.9 - Obesity, unspecified (7) Celiac artery stenosis: Status: Acute Category: Medical Code(s): I77.4 - Celiac artery compression syndrome (8) Diabetes mellitus type 2 in obese: Status: Chronic Category: Medical Code(s): E11.69 - Type 2 diabetes mellitus with other specified complication; E66.9 - Obesity, unspecified (9) HLD (hyperlipidemia): Status: Chronic Qualifiers: Hyperlipidemia type: unspecified Qualified Code(s): E78.5 - Hyperlipidemia, unspecified Category: Medical Code(s): E78.5 - Hyperlipidemia, unspecified (10) HHD (hypertensive heart disease): Status: Chronic Qualifiers: Heart failure presence: without heart failure Qualified Code(s): I11.9 - Hypertensive heart disease without heart failure Category: Medical Code(s): I11.9 - Hypertensive heart disease without heart failure (11) CAD (coronary artery disease): Status: Chronic Qualifiers: Coronary Disease-Associated Artery/Lesion type: [place] artery [place] vs. transplanted heart: [place] heart Associated angina: without angina Qualified Code(s): I25.10 - Atherosclerotic heart disease of [place] coronary art festus without angina pectoris Category: Medical Code(s): I25.10 - Atherosclerotic heart disease of [place] coronary artery without angina pectoris Plan Gloria Romero is a 69-year-old female who presented with progressive shortness of breath, lower extremity pitting edema and was admitted for bilateral pulmonary emboli, HFpEF exacerbation, gangrenous right lower extremity. #Acute hypoxic, hypercapnic respiratory failure #Pulmonary emboli, RLE DVT #HFpEF exacerbation #Flash pulmonary edema #A-fib RVR #NSTEMI type II #Suspected community-acquired pneumonia #Sepsis #History of CAD with stent ? Presented with progressive shortness of breath, lower extremity edema. CTA chest showed left lower lobe, right middle lobe subsegmental pulmonary emboli. CXR with pulmonary edema. BNP 522. ? Patient had rapid response on 02/01/2025, hypoxic to low 80s with BP in 220s over 130s. Also found to be in A-fib RVR. ABG showing mild acute hypercapnia. Improved with IV Lasix 80 mg, IV Lopressor 5 mg, DuoNebs, Solu-Medrol 125 mg, and BiPAP. A-fib RVR converted to NSR. WBC bumped to 36.3 after rapid response, likely reactive from stress response. ? ECHO reveals normal biventricular systolic function, increased LV wall thickness. ? Hemoglobin A1c 11.9%, LDL 83, TSH normal. ? Continue IV Lasix 80 mg twice daily, spironolactone 50 mg. Net -11.5 L. ? Continue metoprolol 12.5 mg twice daily for Afib, lower dose chosen due to soft pressures and decompensated heart failure. HR currently 100. ? Continue vancomycin, cefepime pending sputum cultures. ? Switched to Eliquis 10 mg twice daily for total of 7 days, then 5 mg twice daily. For pulmonary emboli and A-fib. ? Cardiology consulted, patient was previously recommended CABG but she declined. Troponins peaked at 0.07, EKG without acute ischemic changes. No plans for intervention at this time. ? Pulmonology consulted, recommend indefinite anticoagulation for unprovoked PE and DVT. ? Aspirin 81 mg, atorvastatin 40 mg. ? Weaned to room air today. More comfortable. #Gangrenous right fifth toe #Cellulitis #PAD ? Consulted podiatry, recommend continuing IV antibiotics for gangrenous toe and overlying cellulitis. No plan for intervention given significant PAD. ? Cardiology consulted, no plan for revascularization as CTA shows small vessel disease. ? Continue aspirin, statin. ? Continue antibiotic therapy with vancomycin and cefepime and clindamycin. #Type 2 diabetes #Hyperglycemia ? Hemoglobin A1c 11.9%, with blood sugars in the 500s today. ? Given Lantus 20 units x 2, switch to high intensity sliding scale. ? Will schedule Lantus 40 units daily. ACHS glucose checks, HD SSI. #Celiac artery stenosis ? Continue aspirin, statin. Asymptomatic at this time. #Hypertension ? Started irbesartan 75 mg, continue statin. DNR/DNI DVT prophylaxis: [place]
[2025-02-02 17:28] LABS: Glucose,Random 518 mg/dL (74-100)
[2025-02-02] MEDS: ATORVASTATIN 40MG TABLET 40 MG PO (20:14)
[2025-02-02] MEDS: APIXABAN 5MG TABLET 10 MG PO (20:14)
[2025-02-02 20:35] LABS: POC Glucose,Bedside 428 (70-110)
--- NOTE | 2025-02-02 21:10 | PC.NURSE ---
numerous family members at bedside - provided care to right 5th toe with betadine. aldrich intact. patient voices no concerns at this time.
[2025-02-03] VITALS: BP 121/67; PULSE 91; RESP 16; TEMP 36.5; O2SAT 94
[2025-02-03 00:59] LABS: POC Glucose,Bedside 503 (70-110)
[2025-02-03 04:00] VITALS: BP 130/62; PULSE 95; RESP 18; TEMP 36.8; O2SAT 93; BMI 49.6
[2025-02-03] MEDS: CLINDAMYCIN PHOSPHATE/D5W 900 MG/50 ML PIGGYBACK 100 MG IV (06:12)
[2025-02-03 06:19] LABS: POC Glucose,Bedside 259 (70-110)
[2025-02-03 06:28] LABS: Basophils # 0.1 K/mm3 (0-0.2); Basophils % 0.4 % (0.1-2.0); Eosinophils # 0.1 Kmm3 (0.0-0.4); Eosinophils % 0.4 % (0.1-12.0); Hemoglobin 13.1 g/dL (12.2-16.2); Immature Granulocytes # 0.09 10^3uL; Immature Granulocytes % 0.5 %; Lymphocytes # 4.5 K/mm3 (0.7-4.5); Lymphocytes % 23.8 % (10-50); Mean Corpuscular HGB Conc 32.8 g/dL (31.8-35.4); Mean Corpuscular Hemoglobin 29.2 pg (27.0-31.2); Mean Corpuscular Volume 89.1 fl (81-99); Mean Platelet Volume 9.3 fl (7.4-10.4); Monocytes # 1.5 K/mm3 (0.1-1.0); Monocytes % 7.7 % (1.7-9.3); Neutrophils # 12.7 K/mm3 (1.8-7.8); Neutrophils % 67.2 % (37.0-80.0); Nucleated Red Blood Cells # 0 10^3/uL; Nucleated Red Blood Cells % 0 %; Platelet Count 325 K/mm3 (142-424); Red Blood Count 4.49 M/mm3 (4.20-5.40); Red Cell Distribution Width 12.9 % (11.5-17.5); White Blood Count 18.9 K/mm3 (4.8-10.8)
--- NOTE | 2025-02-03 06:39 | EXP.ORTH.PN ---
Subjective *Date: 02/03/25 *Time: 08:06 Interval history: Patient doing very well this morning, she has been moved from ICU to the [facility]. Infection markers are trending down. Patient eating her breakfast and denies any pain with her Right 5th toe. Family at bedside and we discussed plan of care with patient,spouse and family members. Ortho Exam (Inpt) Vital signs and Labs for Last 24 Hours: Temp Pulse Resp BP Pulse Ox O2 Del Method O2 Flow Rate 97.7 F 95 H 16 121/67 94 L Room Air 3 02/03/25 00:00 02/03/25 04:00 02/03/25 00:00 02/03/25 00:00 02/03/25 00:00 02/03/25 06:37 02/02/25 09:00 FiO2 32 02/01/25 18:40 Laboratory Results - last 24 hr 02/02/25 07:35: WBC 24.4 H* D, RBC 4.51, Hgb 13.4 D, Hct 39.1, MCV 86.7, MCH 29.7, MCHC 34.3, RDW 12.6, Plt Count 377, MPV 8.9, Neut % (Auto) 80.1 H, Lymph % (Auto) 13.1, [place] % (Auto) 6.1, Eos % (Auto) 0.0 L, Baso % (Auto) 0.2, Neut # (Auto) 19.5 H, Lymph # (Auto) 3.2, [place] # (Auto) 1.5 H, Eos # (Auto) 0.0, Baso # (Auto) 0.1, Sodium 135 L, Potassium 3.5, Chloride 95 L, Carbon Dioxide 33 H, Anion Gap 10.5, BUN 22 H D, Creatinine 0.60, Estimated Creat Clear 32, Estimated GFR 99, Est GFR ( Amer) 120, Glucose 475 H*, Calcium 8.3 L, Magnesium 2.0 D, Total Bilirubin 0.4, AST 125 H D, ALT 54 D, Alkaline Phosphatase 99, Total Protein 7.4, Albumin 3.4 L, Globulin 4.0 H, Albumin/Globulin Ratio 0.9 L, Vancomycin Trough < 5.0 L 02/02/25 10:13: Chlamy pneumoniae PCR Not detected, Adenovirus (PCR) Not detected, B. pertussis DNA (PCR) Not detected, Coronavirus OC43 (PCR) Not detected, Coronavirus HKU1 (PCR) Not detected, Coronavirus 229E (PCR) Not detected, SARS-CoV-2 (PCR) Not detected, Coronavirus NL63 (PCR) Not detected, Human Metapneumovir PCR Not detected, Influenza A (H1) PCR Not detected, Influ A (H1N1/09) PCR Not detected, Influenza A (H3) PCR Not detected, Influenza Type A (PCR) Not detected, Influenza Type B (PCR) Not detected, M. pneumoniae (PCR) Not detected, Parainfluenza 1 (PCR) Not detected, Parainfluenza 2 (PCR) Not detected, Parainfluenza 3 (PCR) Not detected, Parainfluenza 4 (PCR) Not detected, RSV (PCR) Not detected, Entero/Rhino (PCR) Not detected 02/02/25 11:16: POC Glucose 412 H* 02/02/25 16:31: POC Glucose 503 H* 02/02/25 16:46: Random Glucose 518 H* 02/02/25 20:23: POC Glucose 428 H* 02/03/25 05:39: WBC 18.9 H, RBC 4.49, Hgb 13.1, Hct 40.0, MCV 89.1, MCH 29.2, MCHC 32.8, RDW 12.9, Plt Count 325, MPV 9.3, Neut % (Auto) 67.2, Lymph % (Auto) 23.8, [place] % (Auto) 7.7, Eos % (Auto) 0.4, Baso % (Auto) 0.4, Neut # (Auto) 12.7 H, Lymph # (Auto) 4.5, [place] # (Auto) 1.5 H, Eos # (Auto) 0.1, Baso # (Auto) 0.1 02/03/25 06:11: POC Glucose 259 H I & O for Labs for Last 24 Hours: Intake & Output 01/31/25 02/01/25 02/02/25 02/03/25 23:59 23:59 23:59 23:59 Intake Total 1040 / 1040 1405 / 1405 340 / 340 Output Total 5800 / 5800 5550 / 5550 2775 / 2775 Balance -5800 / -5800 -4510 / -4510 -1370 / -1370 340 / 340 Weight 190 lb 229 lb 2 oz 224 lb 13.944 oz Microbiology Reports for the Last 24 Hours: Microbiology 01/31/25 17:34 Foot,Right Gram Stain - Final 01/31/25 17:34 Foot,Right Wound Culture - Preliminary Gram Negative Rods Gram Negative Rods#2 Gram Negative Rods#3 Gram Positive Cocci 01/31/25 15:55 Blood Blood Culture - Preliminary NO GROWTH AFTER 48 HOURS 01/31/25 15:47 Blood Blood Culture - Preliminary NO GROWTH AFTER 48 HOURS Constitutional: Present no acute distress and cooperative Head: Present normocephalic Eyes: Present as per HPI Neck: Present trachea midline Respiratory: Present normal respiratory effort and able to speak in complete sentences; Absent respiratory distress Comment:: patient now stable on room air 93% Cardiac: Absent pedal pulses present Comment:: Unable to palpable DP pulses b/l. Decreased pedal hair growth. Dusky changes to right 5th toe. Comments:: deferred Rectal (female): Present deferred (female): Present deferred Extremities: Present calf tenderness and other (Right 5th toe has dusky discoloration. There is a sulcus at the inferior aspect of the 5th MPJ. Mild toe cellulitis. The 5th toe has skin intact but is loose and looks like it will slough off. The inferior sulcus is deep but no exposed bone. No debridement. Skin cleansed with betadine. Right DFU: 10); Absent normal capillary refill Skin: Present wounds (R 5th DFU) and gangrene (Right DFU; 100% grayish-black dusky, 2.0 x 0.2 x 0.4 cm. No sheng purulence, malodor or ascending cellulitis.) Comment:: Pending WCx taken by ER 01/31/2025; showing Gram Positive Cocci, Gram Negative Rods. Neuro: Present Motor Function Intact, oriented x 3 and moves all extremities; Absent Sensory Function Intact Ankle: bilateral: normal inspection and bilateral: swelling (b/l LE pitting edema) Feet/Toes: right: swelling (B/L LE), right: tenderness and right: wound (Right fifth toe DFU, gangrene) and bilateral: hammer toe and bilateral: nail abnormalities (Thick elongated) Assessment and Plan *Assessment and plan (1) Gangrene of right foot: Status: Acute Category: Medical Code(s): I96 - Gangrene, not elsewhere classified (2) Cellulitis of right foot: Status: Acute Category: Medical Code(s): L03.115 - Cellulitis of right lower limb (3) Diabetic ulcer of right foot: Status: Acute Qualifiers: Diabetes mellitus type: type 2 Diabetic foot ulcer location: toe Non-pressure ulcer stage: with muscle involvement without evidence of necrosis Qualified Code(s): E11.621 - Type 2 diabetes mellitus with foot ulcer; L97.515 - Non-pressure chronic ulcer of other part of right foot with muscle involvement without evidence of necrosis Category: Medical Code(s): E11.621 - Type 2 diabetes mellitus with foot ulcer; L97.519 - Non-pressure chronic ulcer of other part of right foot with unspecified severity (4) Gangrene due to peripheral vascular disease: Status: Acute Category: Medical Code(s): I73.9 - Peripheral vascular disease, unspecified (5) Diabetes mellitus with diabetic neuropathy: Status: Acute Qualifiers: Diabetes mellitus nursing home insulin use: with intermediate card tender use Diabetes mellitus type: type 2 Qualified Code(s): E11.40 - Type 2 diabetes mellitus with diabetic neuropathy, unspecified; Z79.4 - continuous churn buttermaker (current) use of insulin Category: Medical Code(s): E11.40 - Type 2 diabetes mellitus with diabetic neuropathy, unspecified (6) Morbid obesity with body mass index (BMI) of 40.0 to 49.9: Status: Acute Category: Medical Code(s): E66.01 - Morbid (severe) obesity due to excess calories (7) Deep vein thrombosis (DVT) of right posterior tibial vein: Status: Acute Category: Medical Code(s): I82.441 - Acute embolism and thrombosis of right tibial vein Plan Imagin01/31/25, 3v right foot. FINDINGS: Bones/joints: Degenerative changes of the interphalangeal joints. No evidence of acute fracture or dislocation. Calcaneal spurs are present. Soft tissues: Lateral soft tissue swelling. IMPRESSION: 1. Degenerative changes of the interphalangeal joints. 2. Lateral soft tissue swelling. 3. No evidence of acute fracture or dislocation. . 01/31/25, CT Angio, COMPARISON: CT ANGIO CHEST PE PROTOCOL 01/31/2025 5:16 PM. FINDINGS: Tubes, catheters and devices: Lainez catheter. Aorta: No aortic aneurysm. No aortic dissection. 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 Renal arteries: No occlusion or significant stenosis. Right iliac arteries: No occlusion or significant stenosis. Right femoral/popliteal arteries: No occlusion or significant stenosis. Right infrapopliteal arteries: The right dorsalis pedis artery is not well seen and could be occluded. Left iliac arteries: No occlusion or significant stenosis. Left femoral/popliteal arteries: No occlusion or significant stenosis. Left infrapopliteal arteries: The left dorsalis pedis artery is not seen and could be occluded. There is tiny filling defects within the mid left posterior tibial artery which could indicate tiny blood clots. Lungs: Atelectasis in the lung bases. Liver: No mass. Gallbladder and biliary ducts: Unremarkable. No calcified stones. No ductal dilation. Pancreas: Unremarkable. No mass. No ductal dilation. Spleen: Normal. No splenomegaly. Adrenal glands: Left adrenal adenoma. Kidneys and ureters: Normal. No mass. Stomach and bowel: Unremarkable. No obstruction. No mucosal thickening. Appendix: No evidence of appendicitis. Urinary bladder: Unremarkable. No mass. Reproductive: Unremarkable as visualized. Intraperitoneal space: Unremarkable. No free air. No significant fluid collection. Lymph nodes: Right groin enlarged lymph nodes. Bones/joints: No acute fracture. No dislocation. Soft tissues: Soft tissue swelling and skin thickening involving the inferior pannus reflecting cellulitis. Soft tissue swelling involving the right calf but no soft tissue gas or abscess. Soft tissue swelling involving the calf on the left skin thickening. No abscess or soft tissue gas. IMPRESSION: 1. 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 2. The right dorsalis pedis artery is not well seen and could be occluded or this could be due to slow flow. 3. The left dorsalis pedis artery is not seen and could be occluded or this could be due to slow flow. 4. There is tiny filling defects within the mid left posterior tibial artery which could indicate tiny blood clots. 02/02/25, B/L LE Venous Doopler: FINDINGS: Multiple transverse and longitudinal scans were performed of the femoral popliteal deep venous system, with augmentation and compression maneuvers. Thrombus is seen in the right posterior tibial vein. Otherwise, normal phasic flow was noted in the visualized deep venous system. No intraluminal increased echogenicity is noted to suggest thrombus. There is normal compression and augmentation of the venous structures. No abnormal venous collaterals are seen. IMPRESSION: Isolated right calf venous thrombosis. Recommend follow-up Doppler exam in 7-10 days to assess for propagation. Reviewed, Interpreted and Dictated by Theresa Dow MD. Transcribed by Mimi Wilkinson. 02/02/25, B/L LE ABIs: canceled due to DVT R PT vein Specimens: 01/31/25: Right foot WCx: GNR x3 Labs: 01/31/25: wbc 18.2, esr 58, 67.8, cr 0.5, gfr 122, glucose 316, albumin 3.4 02/01/25: wbc 36.3, cr 0.6, gfr 99, glucose 406, albumin 3.7 02/02/25: wbc 24.4, glucose 409 02/03/25:wbc 18.9, glucose 259 02/02/25, Podiatry Consult Infected Wound: Right 5th toe DFU, gangrene: -Ulcer, skin changes x 1 week per patient (may have hit it on the wheelchair). -Discussed the importance of proper hygiene and maintaining a clean healthy wound bed to avoid the infection spreading. -Wound was cleansed with betadine. -No debridement due to gangrene. -Discussed local wound care, abx for cellulitis. -Right 5th toe: paint with betadine daily, avoid tight dressings. -Discussed if infection is not responding or worsens, may need more oral/IV abx, surgical debridement, and/or amputation. -Review x-rays 3v foot, (-) OM. -Reviewed infection panel: CBC, CMP, ESR, CRP, Ha1c, wound culture. -Independent review of x-rays, CT angio. -WBaT in post op shoe, will need. -IV Abx: Vanco, Cefepime, Clinda per Hospitalist team -Gangrene, PAD, blood clot: defer to Cardiology -Podiatry plan: continue abx and monitor, no plans for surgery -I had a long discussion with the patient and her family about prognosis. I explained likely when she hit the fifth toe on wheelchair, it caused some early bruising but because of the poor blood flow and uncontrolled diabetes, it has gangrenous changes. At this point imaging and clinical exam does not show osteomyelitis or gas gangrene, so I would not recommend amputation. My recommendation would be IV antibiotics for the cellulitis and monitor. Patient/family understand however if she starts to get septic, if clinical signs of infection worsen, or any new imaging shows bone infection or or gas gangrene, she may need an amputation. I explained that toe amputation in a patient with PAD can cause further gangrenous changes which may necessitate TMA, partial adductus of foot or loss of leg. Combined with patient's uncontrolled diabetes of an A1c of 11.9, her prognosis is guarded due to her lack of healing potential from sugar and blood flow. My initial recommendation was to [facility] transfer for vascular, however patient refused in the ER. Thankfully, Dr Rangel has agreed to consult. I explained to the patient there may or may not be any revascularization options and therefore I cannot predict what will happen with her toe. There is a chance it could auto amputate. Podiatry recommendations, daily paint with Betadine, avoid tight dressings, monitor for changes, avoid aggressive surgery/debridement. Podiatry will continue to follow. 02/03/25: Infected Wound: Right 5th toe DFU, gangrene: -Discussed the importance of proper hygiene and maintaining a clean healthy wound bed to avoid the infection spreading. -Wound was cleansed with betadine. -No debridement due to gangrene. -Discussed local wound care, abx for cellulitis. -Right 5th toe: paint with betadine daily, avoid tight dressings. Small betadine soaked gauze placed around toe loosely. -Discussed if infection is not responding or worsens, may need more oral/IV abx, surgical debridement, and/or amputation. -Review x-rays 3v foot, (-) OM. -Reviewed infection panel: Improving, WBC 18.9, glucose 259 -Independent review of x-rays, CT angio. -WBaT in post op shoe, will need (size 8.5) -IV Abx: Continue Vanco, Cefepime, Clinda per Hospitalist team -WCx: showing Gram Positive Cocci, Gram Negative Rods -Gangrene, PAD, blood clot: defer to Cardiology -Podiatry plan: continue abx and monitor, no plans for surgery -All orders per Dr. Carpio
[2025-02-03] MEDS: humaLOG 100 UNITS/ML 10ML VIAL (SSI) SUBCUT ×3 (06:45→17:16)
[2025-02-03 06:54] LABS: Albumin Level 3.1 g/dl (3.5-5.0); Chloride 96 mmol/L (98-107); Sodium 135 mmol/L (136-145)
[2025-02-03 06:56] LABS: Alanine Aminotransferase 39 U/L (12-78); Blood Urea Nitrogen 24 mg/dl (7-17); Creatinine Clearance Estimated 32 mL/min (50-200); Estimated Glomerular Filt Rate 122 ml/min (>60); GFR (African American) 148 ML/MIN (>60)
[2025-02-03 06:57] LABS: Albumin/Globulin Ratio 0.9 (1.1-1.8); Alkaline Phosphatase 103 U/L (38-126); Anion Gap 11.9 mEq/L (5-15); Aspartate Amino Transferase 80 U/L (14-36); Bilirubin,Total 0.4 mg/dl (0.2-1.3); Carbon Dioxide 30 mmol/L (22.0-30.0); Globulin 3.6 g/dL (1.3-3.2); Glucose 256 mg/dl (74-100); Magnesium 1.9 mg/dl (1.6-2.3); Total Protein,Serum 6.7 g/dl (6.3-8.2)
[2025-02-03 07:25] VITALS: BP 126/65; PULSE 104; RESP 20; TEMP 36.6; O2SAT 94
[2025-02-03 08:00] VITALS: PULSE 110
[2025-02-03 08:02] LABS: Potassium 2.9 mmoL/L (3.5-5.1)
[2025-02-03] MEDS: VANCOMYCIN/WATER FOR INJ (PEG) 1.75 GM/350 ML PIGGYBACK IV (09:02)
[2025-02-03] MEDS: FUROSEMIDE 40MG/4ML VIAL 80 MG IV ×2 (09:02→17:04)
[2025-02-03] MEDS: IRBESARTAN 75MG TABLET 75 MG PO (09:03)
[2025-02-03] MEDS: ASPIRIN EC 81MG TABLET 81 MG PO (09:03)
[2025-02-03] MEDS: APIXABAN 5MG TABLET 10 MG PO (09:03)
[2025-02-03] MEDS: SPIRONOLACTONE 25MG TABLET 50 MG PO (09:03)
[2025-02-03] MEDS: METOPROLOL TARTRATE 25MG TABLET 12.5 MG PO (09:03)
[2025-02-03] MEDS: POTASSIUM CHLORIDE 20MEQ TAB 40 MEQ PO ×3 (09:04→17:04)
[2025-02-03] MEDS: INSULIN GLARGINE 100 UNITS/ML 3ML FLEXPEN 40 UNIT SUBCUT (09:06)
--- NOTE | 2025-02-03 09:29 | P.PN_ITS ---
Documented by User: Surya Fairchild MD 02/03/25 11:07 Subjective *Date: 02/03/25 *Time: 11:06 Interval history: No acute respiratory vents overnight. Patient denies any new respiratory complaints. Pulmonology Exam Inpatient Vital signs and Labs for Last 24 Hours: Temp Pulse Resp BP Pulse Ox O2 Del Method O2 Flow Rate 97.8 F 104 H 20 126/65 94 L Room Air 2 02/03/25 07:02/03/25 07:02/03/25 07:02/03/25 07:02/03/25 07:02/03/25 07:02/03/25 04:00 FiO2 32 02/01/25 18:40 Laboratory Results - last 24 hr 02/02/25 10:13: Chlamy pneumoniae PCR Not detected, Adenovirus (PCR) Not detected, B. pertussis DNA (PCR) Not detected, Coronavirus OC43 (PCR) Not detected, Coronavirus HKU1 (PCR) Not detected, Coronavirus 229E (PCR) Not detected, SARS-CoV-2 (PCR) Not detected, Coronavirus NL63 (PCR) Not detected, Human Metapneumovir PCR Not detected, Influenza A (H1) PCR Not detected, Influ A (H1N1/09) PCR Not detected, Influenza A (H3) PCR Not detected, Influenza Type A (PCR) Not detected, Influenza Type B (PCR) Not detected, M. pneumoniae (PCR) Not detected, Parainfluenza 1 (PCR) Not detected, Parainfluenza 2 (PCR) Not detected, Parainfluenza 3 (PCR) Not detected, Parainfluenza 4 (PCR) Not detected, RSV (PCR) Not detected, Entero/Rhino (PCR) Not detected 02/02/25 11:16: POC Glucose 412 H* 02/02/25 16:31: POC Glucose 503 H* 02/02/25 16:46: Random Glucose 518 H* 02/02/25 20:23: POC Glucose 428 H* 02/03/25 05:39: WBC 18.9 H, RBC 4.49, Hgb 13.1, Hct 40.0, MCV 89.1, MCH 29.2, MCHC 32.8, RDW 12.9, Plt Count 325, MPV 9.3, Neut % (Auto) 67.2, Lymph % (Auto) 23.8, [place] % (Auto) 7.7, Eos % (Auto) 0.4, Baso % (Auto) 0.4, Neut # (Auto) 12.7 H, Lymph # (Auto) 4.5, [place] # (Auto) 1.5 H, Eos # (Auto) 0.1, Baso # (Auto) 0.1, Sodium 135 L, Potassium 2.9 L*, Chloride 96 L, Carbon Dioxide 30, Anion Gap 11.9, BUN 24 H, Creatinine 0.50 L, Estimated Creat Clear 32, Estimated GFR 122, Est GFR ( Amer) 148 D, Glucose 256 H D, Calcium 8.0 L, Magnesium 1.9, Total Bilirubin 0.4, AST 80 H D, ALT 39 D, Alkaline Phosphatase 103, Total Protein 6.7, Albumin 3.1 L, Globulin 3.6 H, Albumin/Globulin Ratio 0.9 L 02/03/25 06:11: POC Glucose 259 H Temp Pulse Resp BP Pulse Ox O2 Del Method O2 Flow Rate 98.6 F 100 H 16 114/56 L 94 L Nasal Cannula 3 02/02/25 08:00 02/02/25 08:00 02/02/25 08:00 02/02/25 08:00 02/02/25 08:00 02/02/25 09:00 02/02/25 09:00 FiO2 32 02/01/25 18:40 Laboratory Results - last 24 hr 02/01/25 09:56: POC Glucose 379 H* 02/01/25 10:02: Specimen Source Right radial, O2 % 6l, ABG pH 7.33 L, ABG pCO2 53.3 H, ABG pO2 56.2 L, ABG HCO3 27.5 H, ABG Total CO2 29.2 H, ABG O2 Saturation 87 L*, ABG Base Excess 0.5, [place] Test Acceptable 02/01/25 10:05: WBC 36.3 H* D, RBC 5.39 D, Hgb 15.4 D, Hct 48.6 H, MCV 90.2, MCH 28.6, MCHC 31.7 L, RDW 12.8, Plt Count 442 H D, MPV 9.3, Neut % (Auto) 48.9, Lymph % (Auto) 41.5, [place] % (Auto) 7.4, Eos % (Auto) 0.8, Baso % (Auto) 0.5, Neut # (Auto) 17.8 H, Lymph # (Auto) 15.1 H, [place] # (Auto) 2.7 H, Eos # (Auto) 0.3, Baso # (Auto) 0.2, Total Counted 100, Neutrophils % (Manual) 57, Lymphocytes % (Manual) 40, Monocytes % (Manual) 2, Eosinophils % (Manual) 1, Platelet Estimate Slight increase, RBC Morphology Normal, APTT 50.2, Sodium 136, Potassium 4.3 D, Chloride 98, Carbon Dioxide 26, Anion Gap 16.3 H, BUN 13, Creatinine 0.60, Estimated Creat Clear 32, Estimated GFR 99, Est GFR ( Amer) 120, Glucose 406 H* D, Calcium 8.8, Total Bilirubin 0.5, AST 44 H, ALT 41, Alkaline Phosphatase 128 H, Troponin I 0.05 H, Total Protein 7.7, Albumin 3.7, Globulin 4.0 H, Albumin/Globulin Ratio 0.9 L 02/01/25 11:12: POC Glucose 437 H* 02/01/25 13:33: APTT 27.9 L 02/01/25 16:07: POC Glucose 396 H* 02/01/25 20:33: POC Glucose 459 H* 02/02/25 05:49: POC Glucose 409 H* 02/02/25 07:35: WBC 24.4 H* D, RBC 4.51, Hgb 13.4 D, Hct 39.1, MCV 86.7, MCH 29.7, MCHC 34.3, RDW 12.6, Plt Count 377, MPV 8.9, Neut % (Auto) 80.1 H, Lymph % (Auto) 13.1, [place] % (Auto) 6.1, Eos % (Auto) 0.0 L, Baso % (Auto) 0.2, Neut # (Auto) 19.5 H, Lymph # (Auto) 3.2, [place] # (Auto) 1.5 H, Eos # (Auto) 0.0, Baso # (Auto) 0.1, Sodium 135 L, Potassium 3.5, Chloride 95 L, Carbon Dioxide 33 H, Anion Gap 10.5, BUN 22 H D, Creatinine 0.60, Estimated Creat Clear 32, Estimated GFR 99, Est GFR ( Amer) 120, Glucose 475 H*, Calcium 8.3 L, Magnesium 2.0 D, Total Bilirubin 0.4, AST 125 H D, ALT 54 D, Alkaline Phosphatase 99, Total Protein 7.4, Albumin 3.4 L, Globulin 4.0 H, Albumin/Globulin Ratio 0.9 L, Vancomycin Trough < 5.0 L I & O for Labs for Last 24 Hours: Intake & Output 01/31/25 02/01/25 02/02/25 02/03/25 23:59 23:59 23:59 23:59 Intake Total 1040 / 1195 1405 / 1745 760 / 760 Output Total 5800 / 5800 5550 / 5550 2775 / 2775 800 / 800 Balance -5800 / -5800 -4510 / -4355 -1370 / -1030 -40 / -40 Weight 190 lb 229 lb 2 oz 224 lb 13.944 oz 230 lb 4 oz Intake & Output 01/30/25 01/31/25 02/01/25 02/02/25 23:59 23:59 23:59 23:59 Intake Total 1040 / 1195 435 / 435 Output Total 5800 / 5800 5550 / 5550 900 / 900 Balance -5800 / -5800 -4510 / -4355 -465 / -465 Weight 190 lb 229 lb 2 oz 226 lb Microbiology Reports for the Last 24 Hours: Microbiology 01/31/25 17:34 Foot,Right Gram Stain - Final 01/31/25 17:34 Foot,Right Wound Culture - Preliminary Gram Negative Rods Gram Negative Rods#2 Gram Negative Rods#3 Gram Positive Cocci 01/31/25 15:55 Blood Blood Culture - Preliminary NO GROWTH AFTER 48 HOURS 01/31/25 15:47 Blood Blood Culture - Preliminary NO GROWTH AFTER 48 HOURS Microbiology 01/31/25 17:34 Foot,Right Gram Stain - Final 01/31/25 17:34 Foot,Right Wound Culture - Preliminary Gram Negative Rods Gram Negative Rods#2 Gram Negative Rods#3 01/31/25 15:47 Blood Blood Culture - Preliminary NO GROWTH AFTER 24 HOURS 01/31/25 15:55 Blood Blood Culture - Preliminary NO GROWTH AFTER 24 HOURS Constitutional: Present moderate distress Head: Present normocephalic and atraumatic ENT: Present normal exam, normal oropharynx and mucous membranes moist Neck: Present normal inspection and full ROM Respiratory: Present respiratory distress, crackles and able to speak in complete sentences; Absent prolonged expiratory phase or wheezes Cardiac: Present S1/S2, Tachycardia and radial pulses present GI: Present soft and distention; Absent tenderness or guarding Rectal (female): Present deferred (female): Present deferred Skin: Present intact; Absent cyanosis or jaundice Neuro: Present alert, awake and oriented x 3 Extremities: Present cyanosis; Absent normal inspection or clubbing Comment:: Toe ulcer Psychiatric: Present normal affect and cooperative Assessment and Plan *Assessment and plan (1) Deep vein thrombosis (DVT) of right posterior tibial vein: Status: Acute Category: Medical Code(s): I82.441 - Acute embolism and thrombosis of right tibial vein (2) Pulmonary emboli: Status: Acute Qualifiers: Pulmonary embolism type: multiple subsegmental (without acute cor pulmonale) Qualified Code(s): I26.94 - Multiple subsegmental thrombotic pulmonary emboli without acute cor pulmonale Category: Medical Code(s): I26.99 - Other pulmonary embolism without acute cor pulmonale Plan Mr. Lynn is a 69 Y/o F with reported medical history of CAD, hypertension, hyperlipidemia, T2DM, prior CVA presented today with worsening respiratory disease bilateral lower extremity edema pulmonary was called for further eval uation and management. No significant smoking history or secondhand smoke exposure. Denies any baseline respiratory symptoms. Never used any inhalers or oxygen supplementation CTA PE upon admission showed bilateral segmental and subsegmental pulmonary embolism. No dense consolidative/airspace changes. No significant pleural effusions. Right lower lobe pleural-based nodule. CT abdomen celiac trunk stenosis. Concerning occlusion of the left dorsalis pedis artery with filling defects tibial and dorsalis pedis artery left. Concerning soft tissue cellulitis pannus, right calf Significant neutrophilic predominant leukocytosis improving. Wound culture gram-negative rods. Final speciation pending. On broad-spectrum antibiotics including vancomycin and cefepime. Interval update: No acute respiratory vents overnight. Improving leukocytosis. Continue to remain on room air. Echo normal LVEF. Diastolic dysfunction. Plan: DuoNebs 4 times daily as needed Oxygen supplementation only as needed to maintain O2 saturation of 90% open Continue full dose anticoagulation for the noted DVT PE Follow with cardiology and podiatric recommendations. Thank you for involving pulmonary in this patient care. Will follow the patient in pulmonary clinic 3 to 4 weeks postdischarge Documented by User: Bob Donald MD 02/08/25 16:11 Subjective *Date: 02/08/25 *Time: 16:11 Pulmonology Exam Inpatient Vital signs and Labs for Last 24 Hours: Temp Pulse Resp BP Pulse Ox O2 Del Method O2 Flow Rate 97.8 F 104 H 20 126/65 94 L Room Air 2 02/03/25 07:02/03/25 07:02/03/25 07:25 02/03/25 07:25 02/03/25 07:02/03/25 07:02/03/25 04:00 FiO2 32 02/01/25 18:40 Laboratory Results - last 24 hr 02/02/25 10:13: Chlamy pneumoniae PCR Not detected, Adenovirus (PCR) Not detected, B. pertussis DNA (PCR) Not detected, Coronavirus OC43 (PCR) Not d etected, Coronavirus HKU1 (PCR) Not detected, Coronavirus 229E (PCR) Not detected, SARS-CoV-2 (PCR) Not detected, Coronavirus NL63 (PCR) Not detected, Human Metapneumovir PCR Not detected, Influenza A (H1) PCR Not detected, Influ A (H1N1/09) PCR Not detected, Influenza A (H3) PCR Not detected, Influenza Type A (PCR) Not detected, Influenza Type B (PCR) Not detected, M. pneumoniae (PCR) Not detected, Parainfluenza 1 (PCR) Not detected, Parainfluenza 2 (PCR) Not detected, Parainfluenza 3 (PCR) Not detected, Parainfluenza 4 (PCR) Not detected, RSV (PCR) Not detected, Entero/Rhino (PCR) Not detected 02/02/25 11:16: POC Glucose 412 H* 02/02/25 16:31: POC Glucose 503 H* 02/02/25 16:46: Random Glucose 518 H* 02/02/25 20:23: POC Glucose 428 H* 02/03/25 05:39: WBC 18.9 H, RBC 4.49, Hgb 13.1, Hct 40.0, MCV 89.1, MCH 29.2, MCHC 32.8, RDW 12.9, Plt Count 325, MPV 9.3, Neut % (Auto) 67.2, Lymph % (Auto) 23.8, [place] % (Auto) 7.7, Eos % (Auto) 0.4, Baso % (Auto) 0.4, Neut # (Auto) 12.7 H, Lymph # (Auto) 4.5, [place] # (Auto) 1.5 H, Eos # (Auto) 0.1, Baso # (Auto) 0.1, Sodium 135 L, Potassium 2.9 L*, Chloride 96 L, Carbon Dioxide 30, Anion Gap 11.9, BUN 24 H, Creatinine 0.50 L, Estimated Creat Clear 32, Estimated GFR 122, Est GFR ( Amer) 148 D, Glucose 256 H D, Calcium 8.0 L, Magnesium 1.9, Total Bilirubin 0.4, AST 80 H D, ALT 39 D, Alkaline Phosphatase 103, Total Protein 6.7, Albumin 3.1 L, Globulin 3.6 H, Albumin/Globulin Ratio 0.9 L 02/03/25 06:11: POC Glucose 259 H I & O for Labs for Last 24 Hours: Intake & Output 01/31/25 02/01/25 02/02/25 02/03/25 23:59 23:59 23:59 23:59 Intake Total 1040 / 1195 1405 / 1745 760 / 760 Output Total 5800 / 5800 5550 / 5550 2775 / 2775 800 / 800 Balance -5800 / -5800 -4510 / -4355 -1370 / -1030 -40 / -40 Weight 190 lb 229 lb 2 oz 224 lb 13.944 oz 230 lb 4 oz Microbiology Reports for the Last 24 Hours: Microbiology 01/31/25 17:34 Foot,Right Gram Stain - Final 01/31/25 17:34 Foot,Right Wound Culture - Preliminary Gram Negative Rods Gram Negative Rods#2 Gram Negative Rods#3 Gram Positive Cocci 01/31/25 15:55 Blood Blood Culture - Preliminary NO GROWTH AFTER 48 HOURS 01/31/25 15:47 Blood Blood Culture - Preliminary NO GROWTH AFTER 48 HOURS Assessment and Plan *Assessment and plan (1) Deep vein thrombosis (DVT) of right posterior tibial vein: Status: Acute Category: Medical Code(s): I82.441 - Acute embolism and thrombosis of right tibial vein (2) Pulmonary emboli: Status: Acute Qualifiers: Pulmonary embolism type: multiple subsegmental (without acute cor pul monale) Qualified Code(s): I26.94 - Multiple subsegmental thrombotic pulmonary emboli without acute cor pulmonale Category: Medical Code(s): I26.99 - Other pulmonary embolism without acute cor pulmonale
[2025-02-03 10:59] LABS: POC Glucose,Bedside 309 (70-110)
[2025-02-03 12:00] VITALS: BP 133/69; PULSE 80; PULSE 94; RESP 19; TEMP 36.6; O2SAT 93
--- NOTE | 2025-02-03 12:20 | EXP.DC.SUM ---
General Admission date:: 01/31/25 HPI HPI HPI: This is a 69-year-old female with past medical history of CAD, hypertension, hyperlipidemia, T2DM, prior CVA who presents emergency department today with complaints of shortness of breath and bilateral lower extremity edema. She also reports a wound on her fifth digit of her right foot. She reports that she has had swelling for some time but it has been getting worse over the last 3 days. She was put on Lasix by her primary care provider. Despite taking the Lasix she has had increased shortness of breath and swelling. With regards to the wound she states that she did not notice the wound until today. Denies any fever. Denies any chest pain. Emergency department workup notable for cellulitis versus gangrene to the right lower extremity. CTA chest abdomen pelvis obtained and notable for pulmonary emboli within the subsegmental artery to the left lower lobe and right middle lobe. Also notable is high-grade stenosis at the celiac trunk and SMA. Right dorsalis pedis artery not well-seen and could be occluded as well as the left dorsalis pedis artery. Also notable to have mid posterior tibial artery filling defect which could represent tiny blood clots Laboratory evaluation notable for leukocytosis with a white count of 18, elevated ESR of 58, glucose of 316, A1c of 11.9, troponin of 0.02 with uptrend to 0.04, CRP of 67 Dr Carpio was consulted with podiatry and recommended transfer initially. Transfer attempted by ED provider at . states the patient likely can go home with treatment for cellulitis but given patient's vascular disease and pulmonary emboli it was felt that she would benefit from hospitalization. After multiple discussions with the ED provider and family, family wishes to be admitted here or discharged home. Does not want transfer to any other facility. States that they are happy with the care they are receiving here. ER provider did inform them that vascular surgery was probably the best option for salvage care of the foot. They are understanding that the best course of treatment would likely be vascular surgery but would like to be admitted here for IV antibiotics and blood thinners until they can have a more lengthy family discussion on goals of care. Patient is in agreement to this. Dr. Rangel was consulted at the time of decision to stay here at this facility and will be happy to consult on Sunday for consult for possible revascularization. Dr. Carpio also notified of patient's admission here to this hospital. 02/02/25, Podiatry Consult: Patient seen and evaluated by podiatry [employer] and myself. Discussed patient with ER Doctor Usha Rajan 01/31/25. Based on imaging being negative for gas and osteomyelitis, dusky toe with gangrene and blood clot my recommendation was transfer for vascular evaluation. Patient/family refused transfer. Due to her elevated white count, ESR, CRP, uncontrolled diabetes, pulmonary embolism clots and gangrene, decision made for admission for IV antibiotics and blood thinners. Patient denies significant pain to the right foot today. Reports some shortness of breath. Patient does not want amputation. Had a very interactive discussion with her /family regarding her plan of care. At home they were using Kenzie and jorge and have in the past to treat other wounds. PCP: Nydia Carlos. Will monitor and await if cardiology can offer any revascularization options. Hospital Course Hospital Course Hospital Course: Gloria Romero is a 69-year-old female who presented with progressive shortness of breath, lower extremity pitting edema and was admitted for bilateral pulmonary emboli, HFpEF exacerbation, gangrenous right lower extremity. Of note, patient is from [facility]. Deferred SNF and elected to be discharged back to community with support of family. #Acute hypoxic, hypercapnic respiratory failure #Pulmonary emboli, RLE DVT #HFpEF exacerbation #Flash pulmonary edema #A-fib RVR #NSTEMI type II #Suspected community-acquired pneumonia #Sepsis #History of CAD with stent ? Presented with progressive shortness of breath, lower extremity edema. CTA chest showed left lower lobe, right middle lobe subsegmental pulmonary emboli. CXR with pulmonary edema. BNP 522. ? Patient had rapid response on 02/01/2025, hypoxic to low 80s with BP in 220s over 130s. Also found to be in A-fib RVR. ABG showing mild acute hypercapnia. Improved with IV Lasix 80 mg, IV Lopressor 5 mg, DuoNebs, Solu-Medrol 125 mg, and BiPAP. A-fib RVR converted to NSR. WBC bumped to 36.3 after rapid response, likely reactive from stress response. ? ECHO reveals normal biventricular systolic function, increased LV wall thickness. ? Hemoglobin A1c 11.9%, LDL 83, TSH normal. ? Overall clinically improved with Lasix and spirinolactone diuresis. Net -12 L. Weaned to room air. ? Continue metoprolol 12.5 mg twice daily for Afib, lower dose chosen due to soft pressures and decompensated heart failure. HR currently 100. ? Switched to Eliquis 10 mg twice daily for total of 7 days, then 5 mg twice daily. For pulmonary emboli and A-fib. ? Cardiology consulted, patient was previously recommended CABG but she declined. Troponins peaked at 0.07, EKG without acute ischemic changes. No plans for intervention at this time. ? Pulmonology consulted, recommend indefinite anticoagulation for unprovoked PE and DVT. ? Aspirin 81 mg, atorvastatin 40 mg. #Gangrenous right fifth toe #Cellulitis #PAD ? Consulted podiatry, recommend IV antibiotics for gangrenous toe and overlying cellulitis. No plan for intervention given significant PAD. ? Cardiology consulted, no plan for revascularization as CTA shows small vessel disease. ? Continue aspirin, statin. ? Discussed with podiatry after wound cultures showed Proteus and Klebsiella sensitive to levofloxicin, transitioned off vancomycin, cefepime. #Type 2 diabetes #Hyperglycemia ? Hemoglobin A1c 11.9%, with blood sugars in the 500s today. ? Given Lantus 20 units x 2, switch to high intensity sliding scale. ? Will schedule Lantus 40 units daily. ACHS glucose checks, HD SSI. #Celiac artery stenosis ? Continue aspirin, statin. Asymptomatic at this time. #Hypertension ? Started irbesartan 75 mg, continue statin. Total time spent on discharge: 35 minutes on chart review, counseling, documentation, and direct care with patient. Exam Data for Last 24 hours Vital signs and Labs for Last 24 Hours: Temp Pulse Resp BP Pulse Ox O2 Del Method O2 Flow Rate 97.8 F 94 H 19 133/69 93 L Room Air 2 02/03/25 12:00 02/03/25 12:00 02/03/25 12:00 02/03/25 12:00 02/03/25 12:00 02/03/25 12:00 02/03/25 04:00 FiO2 32 02/01/25 18:40 Laboratory Results - last 24 hr 02/02/25 16:31: POC Glucose 503 H* 02/02/25 16:46: Random Glucose 518 H* 02/02/25 20:23: POC Glucose 428 H* 02/03/25 05:39: WBC 18.9 H, RBC 4.49, Hgb 13.1, Hct 40.0, MCV 89.1, MCH 29.2, MCHC 32.8, RDW 12.9, Plt Count 325, MPV 9.3, Neut % (Auto) 67.2, Lymph % (Auto) 23.8, [place] % (Auto) 7.7, Eos % (Auto) 0.4, Baso % (Auto) 0.4, Neut # (Auto) 12.7 H, Lymph # (Auto) 4.5, [place] # (Auto) 1.5 H, Eos # (Auto) 0.1, Baso # (Auto) 0.1, Sodium 135 L, Potassium 2.9 L*, Chloride 96 L, Carbon Dioxide 30, Anion Gap 11.9, BUN 24 H, Creatinine 0.50 L, Estimated Creat Clear 32, Estimated GFR 122, Est GFR ( Amer) 148 D, Glucose 256 H D, Calcium 8.0 L, Magnesium 1.9, Total Bilirubin 0.4, AST 80 H D, ALT 39 D, Alkaline Phosphatase 103, Total Protein 6.7, Albumin 3.1 L, Globulin 3.6 H, Albumin/Globulin Ratio 0.9 L 02/03/25 06:11: POC Glucose 259 H 02/03/25 09:06: POC Glucose 309 H* I & O for Last 24 hours: Intake & Output 01/31/25 02/01/25 02/02/25 02/03/25 23:59 23:59 23:59 23:59 Intake Total 1040 / 1195 1405 / 1745 760 / 760 Output Total 5800 / 5800 5550 / 5550 2775 / 2775 800 / 800 Balance -5800 / -5800 -4510 / -4355 -1370 / -1030 -40 / -40 Weight 86.183 kg 103.929 kg 102 kg 104.44 kg Microbiology Reports for the Last 24 Hours: Microbiology 01/31/25 17:34 Foot,Right Gram Stain - Final 01/31/25 17:34 Foot,Right Wound Culture - Final Proteus mirabilis#2 Klebsiella oxytoca 01/31/25 15:55 Blood Blood Culture - Preliminary NO GROWTH AFTER 48 HOURS 01/31/25 15:47 Blood Blood Culture - Preliminary NO GROWTH AFTER 48 HOURS Constitutional Constitutional: no acute distress *Routine HEENT Exam Head: Present normocephalic Eye: Present EOMI and PERRL ENT: Present mucous membranes moist *Routine Neck Exam Neck: Present supple; Absent lymphadenopathy *Routine Respiratory Exam Respiratory: Present CTA bilaterally *Routine Cardiovascular Exam Cardiovascular: Present RRR *Routine Abdominal Exam Abdominal: Present soft and normoactive bowel sounds; Absent tenderness *Routine Extremities Exam Extremities: Absent cyanosis, clubbing or edema Comments: Gangrenous right fifth toe with overlying erythema swelling. *Routine Skin Exam Skin: Present warm; Absent rash *Routine Neurological Exam Neurological: Present alert and oriented X3 Results Data Completed and Pending Labs on day of discharge: Labs from last 24 hours 02/03/25 02/03/25 02/03/25 09:06 06:11 05:39 WBC 18.9 H RBC 4.49 Hgb 13.1 Hct 40.0 MCV 89.1 MCH 29.2 MCHC 32.8 RDW 12.9 Plt Count 325 MPV 9.3 Neut % (Auto) 67.2 Lymph % (Auto) 23.8 [place] % (Auto) 7.7 Eos % (Auto) 0.4 Baso % (Auto) 0.4 Neut # (Auto) 12.7 H Lymph # (Auto) 4.5 [place] # (Auto) 1.5 H Eos # (Auto) 0.1 Baso # (Auto) 0.1 Sodium 135 L Potassium 2.9 L* Chloride 96 L Carbon Dioxide 30 Anion Gap 11.9 BUN 24 H Creatinine 0.50 L Estimated Creat Clear 32 Estimated GFR 122 Est GFR ( Amer) 148 D Glucose 256 H D POC Glucose 309 H* 259 H Random Glucose Calcium 8.0 L Magnesium 1.9 Total Bilirubin 0.4 AST 80 H D ALT 39 D Alkaline Phosphatase 103 Total Protein 6.7 Albumin 3.1 L Globulin 3.6 H Albumin/Globulin Ratio 0.9 L 02/02/25 02/02/25 02/02/25 20:23 16:46 16:31 WBC RBC Hgb Hct MCV MCH MCHC RDW Plt Count MPV Neut % (Auto) Lymph % (Auto) [place] % (Auto) Eos % (Auto) Baso % (Auto) Neut # (Auto) Lymph # (Auto) [place] # (Auto) Eos # (Auto) Baso # (Auto) Sodium Potassium Chloride Carbon Dioxide Anion Gap BUN Creatinine Estimated Creat Clear Estimated GFR Est GFR ( Amer) Glucose POC Glucose 428 H* 503 H* Random Glucose 518 H* Calcium Magnesium Total Bilirubin AST ALT Alkaline Phosphatase Total Protein Albumin Globulin Albumin/Globulin Ratio Preliminary micro results at discharge 01/31/25 15:55 Blood Culture - Preliminary Blood NO GROWTH AFTER 48 HOURS 01/31/25 15:47 Blood Culture - Preliminary Blood NO GROWTH AFTER 48 HOURS DS: Diagnosis Discharge Diagnosis (1) Deep vein thrombosis (DVT) of right posterior tibial vein: Status: Acute Code(s): I82.441 - Acute embolism and thrombosis of right tibial vein (2) Pulmonary emboli: Status: Acute Code(s): I26.99 - Other pulmonary embolism without acute cor pulmonale Qualifiers: Pulmonary embolism type: multiple subsegmental (without acute cor pulmonale) Qualified Code(s): I26.94 - Multiple subsegmental thrombotic pulmonary emboli without acute cor pulmonale Meds Home Medications and Allergies Home Medications ?Medication ?Instructions ?Recorded ?Confirmed ?Type apixaban 5 mg (74 tabs) tablets in 5 mg PO BID #74 tabs 02/03/25 Rx a dose pack (Ebid.co.zw DVT-PE Treat 30D Start) aspirin 81 mg tablet,delayed 81 mg PO DAILY 30 days #30 tabs 02/03/25 Rx release atorvastatin 40 mg tablet 40 mg PO HS 30 days #30 tabs 02/03/25 Rx dapagliflozin propanediol 10 mg 10 mg PO DAILY #30 tabs 02/03/25 Rx tablet (Farxiga) furosemide 40 mg tablet (Lasix) 40 mg PO BID 30 days #60 tabs 02/03/25 Rx insulin glargine 100 unit/mL (3 30 unit (0.3 mL) SQ BID 30 days 02/03/25 Rx mL) subcutaneous pen (Lantus #18 mL Solostar U-100 Insulin) irbesartan 75 mg tablet 75 mg PO DAILY 30 days #30 tabs 02/03/25 Rx levofloxacin 750 mg tablet 750 mg PO Q48H 14 days #7 tabs 02/03/25 Rx metformin 500 mg tablet,extended 1,000 mg (2 x 500 mg) PO BID 02/03/25 01/31/25 Rx release 24 hr Diabetes 30 days #0 tabs metoprolol tartrate 25 mg tablet 12.5 mg (1/2 x 25 mg) PO BID 30 02/03/25 Rx days #30 tabs spironolactone 25 mg tablet 50 mg (2 x 25 mg) PO DAILY 30 days 02/03/25 Rx #60 tabs New Prescriptions to Start Prescriptions: apixaban [Eliquis DVT-PE Treat 30D Start] Shabana,Bob aspirin Shabana,Bob atorvastatin Shabana,Bob dapagliflozin propanediol [Farxiga] Shabana,Bob furosemide [Lasix] Shabana,Bob insulin glargine [Lantus Solostar U-100 Insulin] Shabana,Bob irbesartan Shabana,Bob levofloxacin Shabana,Bob metoprolol tartrate Shabana,Bob spironolactone Shabana,Bob Allergies Allergy/AdvReac Type Severity Reaction Status Date / Time No Known Allergies Allergy Verified 02/21/19 09:16 Discharge Plan Disposition Patient Disposition: Home, Self-Care Condition: Fair Discharge Order Discharge Orders: Discharge Order (Routine); Ordered 02/03/25 Ordered By: Bob Donald Follow up Plan Follow up with: Tone Singer PA [Physician Collar Worker, Cardiology] - 1 week Makenzie Carpio DPM [Staff Physician, Podiatry] - 1 week Serafin Marie MD [Staff Physician, Family Practice] - 1 week Prescriptions/Medication Reconciliation: New atorvastatin 40 mg Tablet 40 mg PO HS 30 Days Qty: 30 0RF aspirin 81 mg Tablet,Delayed Release (Dr/Ec) 81 mg PO DAILY 30 Days Qty: 30 0RF irbesartan 75 mg Tablet 75 mg PO DAILY 30 Days Qty: 30 0RF levofloxacin 750 mg Tablet 750 mg PO Q48H 14 Days Qty: 7 0RF spironolactone 25 mg Tablet 50 mg PO DAILY 30 Days Qty: 60 0RF metoprolol tartrate 25 mg Tablet 12.5 mg PO BID 30 Days Qty: 30 0RF furosemide [Lasix] 40 mg tablet 40 mg PO BID 30 Days Qty: 60 0RF dapagliflozin propanediol [Farxiga] 10 mg tablet 10 mg PO DAILY Qty: 30 0RF Eliquis DVT-PE Treat 30D Start 5 mg (74 tabs) tablets,dose pack 5 mg PO BID Qty: 74 0RF insulin glargine [Lantus Solostar U-100 Insulin] 100 unit/mL (3 mL) insulin pen 30 unit SQ BID 30 Days Qty: 18 0RF Changed metformin 500 mg tablet extended release 24 hr 1,000 mg PO BID 30 Days Qty: 0 0RF Discontinued lisinopril 5 mg tablet 5 mg PO DAILY Qty: 30 2RF bisoprolol fumarate 5 mg tablet 5 mg PO DAILY Qty: 30 2RF cephalexin 500 mg capsule 500 mg PO BID Problem Reconciliation Problems Reviewed?: Yes Patient Discharge Instructions Patient Instructions: DI for Cellulitis -- Adult, Carbohydrate-Counting Diet, DI for Deep Vein Thrombosis, DI for Pulmonary Embolism, DI for Diabetic Foot Ulcer, Catheter-Associated Urinary Tract Infection, Using Nutrition Labels: Carbohydrate Diet, Stop Light Infection Print Language: Malaysian Providers Primary Care Provider: Carole Carlos Admit Provider: Bob Donald Attending Provider: Bob Donald
[2025-02-03] MEDS: POLYETHYLENE GLYCOL 3350 17 GM PACKET PO (12:38)
[2025-02-03] MEDS: levoFLOXacin 750 MG TABLET PO (12:38)
--- NOTE | 2025-02-03 12:51 | SW/DCPLANNER ---
I spoke w/ patient and her regarding plans once medically stable for discharge. Per MD patient will discharge home on PO antibiotics. plans to return home w/ patient and family to assist in care at home. No further needs at this time. Patient will discharge home today.
[2025-02-03 12:59] LABS: POC Glucose,Bedside 447 (70-110)
--- NOTE | 2025-02-03 13:42 | HMH.PHAINT1 ---
Pharmacy Intervention Comments: DISCUSSED ELIQUIS DOSING. INSTRUCTED TO FOLLOW DIRECTIONS ON STARTER PACK. 10 MG BID X7 DAYS, THEN 5 MG BID THEREAFTER. INSTRUCTED PATIENT AND FAMILY ABOUT WHEN TO TAKE WHICH MEDICATION AND WHEN TO TAKE NEXT DOSE OF LEVAQUIN. LEVAQUIN 750 MG Q48H STARTING ON 02/05/25.
[2025-02-03 14:05] LABS: POC Glucose,Bedside 449 (70-110)
[2025-02-03] MEDS: METFORMIN 500MG TABLET 1000 MG PO (14:58)
[2025-02-03] MEDS: DAPAGLIFLOZIN PROPANEDIOL 10 MG TABLET PO (14:58)
[2025-02-03] MEDS: INSULIN GLARGINE 100 UNITS/ML 10ML VIAL 20 UNIT SUBCUT (15:05)
[2025-02-03 16:00] VITALS: BP 138/75; PULSE 100; PULSE 96; RESP 17; TEMP 36.4; O2SAT 95
--- NOTE | 2025-02-03 16:18 | PC.NURSE ---
VS stable and patient remained on room air. FSBS elevated in the 400's, MD stated he wanted FSBS to be in the 300's before discharge. Additional medications given. Lung sounds clear. Betadine applied to fifth right toe this am per patient's . Lainez catheter removed and patient able to void.
[2025-02-03 17:41] LABS: POC Glucose,Bedside 319 (70-110)
--- NOTE | 2025-02-04 09:04 | PC.NURSE ---
I sent the pts wound culture results to the hospitalist as the pt was admitted.
--- NOTE | 2025-02-04 10:00 | SW/DCPLANNER ---
Phoned patient and it was the neighbors phone. Neighbor stated that they havent been home for a few days and hes not sure whats going on. Neighbor stated that he thinks they have been staying with their daughter. Patient is spiritism. Janice BASILIO [employer]
== END 2025-02-03 18:17 | disposition home or self-care (01) | DRG 175 ==
LOC: ER 15:16 → 2ND 22:35 → ICU 02-01 10:21 → 2ND 02-02 13:20
PROVIDERS: Nurse Practitioner Acute Care; Admitting Provider Student in an Organized Health Care Education/Training Program; Emergency Provider Emergency Medicine; PCP Nurse Practitioner Family; Visit Provider Student in an Organized Health Care Education/Training Program
DX: I26.94 Multiple subsegmental thrombotic pulmonary emboli without acute cor pulmonale (principal); A41.9 Sepsis, unspecified organism; Z66 Do not resuscitate; I21.A1 Myocardial infarction type 2; I50.33 Acute on chronic diastolic (congestive) heart failure; J96.02 Acute respiratory failure with hypercapnia; J96.01 Acute respiratory failure with hypoxia; J18.9 Pneumonia, unspecified organism; E11.52 Type 2 diabetes mellitus with diabetic peripheral angiopathy with gangrene; Z68.42 Body mass index [BMI] 45.0-49.9, adult; L03.115 Cellulitis of right lower limb; I16.1 Hypertensive emergency; L97.515 Non-pressure chronic ulcer of other part of right foot with muscle involvement without evidence of necrosis; I82.441 Acute embolism and thrombosis of right tibial vein; I25.10 Atherosclerotic heart disease of native coronary artery without angina pectoris; I26.99 Other pulmonary embolism without acute cor pulmonale; Z53.1 Procedure and treatment not carried out because of patient's decision for reasons of belief and group pressure; E78.5 Hyperlipidemia, unspecified; I77.1 Stricture of artery; I11.0 Hypertensive heart disease with heart failure; I48.91 Unspecified atrial fibrillation; E11.621 Type 2 diabetes mellitus with foot ulcer; E11.40 Type 2 diabetes mellitus with diabetic neuropathy, unspecified; E66.01 Morbid (severe) obesity due to excess calories; I45.19 Other right bundle-branch block; B96.4 Proteus (mirabilis) (morganii) as the cause of diseases classified elsewhere; B96.89 Other specified bacterial agents as the cause of diseases classified elsewhere; E11.65 Type 2 diabetes mellitus with hyperglycemia; Z86.73 Personal history of transient ischemic attack (TIA), and cerebral infarction without residual deficits; Z79.84 Long term (current) use of oral hypoglycemic drugs; Z79.899 Other long term (current) drug therapy
CPT/HCPCS: 36415; 51702; 71045; 71275; 73630; 75635; 80048; 80053; 80061; 80202; 81001; 82803; 82947; 82962; 83036; 83605; 83735; 83880; 84100; 84436; 84443; 84484; 85007; 85025; 85378; 85610; 85651; 85730; 86140; 86803; 87040; 87070; 87077; 87186; 87205; 87389; 87633; 93005; 93306; 93970; 94640; 94660; 97162; 97166; 97530; J0360; J0692; J0736; J1644; J1650; J1938; J2919; J3370; J3372; J3475; J7614; J7644; Q9967